=== PATIENT | female | born 1945 | race Caucasian/White ===

== ENCOUNTER → 2017-09-26 | Outpatient (CLI) | payer MEDICARE, OTHER ==
--- NOTE | 2017-09-26 10:14 | CTL ---
EXAMINATION TYPE: CT Low Dose Lung DATE OF EXAM ORDERED: 09/26/2017 COMPARISON: None HISTORY: . Low Dose CT Lung Screening CT DLP: 132.[address] CTDI: 3.6 mGy IV CONTRAST USED: None. SCREENING VISIT: First visit COMPARISON: None. TECHNIQUE: Low dose computed tomography scan was performed through the chest at 1 millimeter thick se ctions and reconstructed images in the coronal plane at [address] DIAGNOSTIC QUALITY: Satisfactory FINDINGS: LUNG NODULES: Right lung: Pleural-based nodule right upper lobe measuring approximately 1.9 x 1.6 x 1.3 cm. Several adjacent groundglass nodular densities are also identified measuring up to 6 mm. No additional right -sided nodules are seen. Left lung: No distinct pulmonary nodule identified. LUNGS: COPD: Severity: Moderate Fibrosis: Severity:None Lymph nodes: 11 mm right lower paratracheal lymph node. Other findings: None RIGHT PLEURAL SPACE: Effusion: None Calcification: None Thickening: None Pneumothorax: None LEFT PLEURAL SPACE: Effusion: None Calcification: None Thickening: None Pneumothorax: None HEART: Heart Size: Moderately enlarged. Coronary calcification: Moderate Pericardial effusion: None OTHER FINDINGS: Upper abdomen: Multiple hypoattenuating masses within the liver are felt to reflect metastatic diseas e. Nonspecific hypoattenuating lesion upper pole left kidney posteriorly measures 1.5 cm. Bony thorax: Degenerative changes Supraclavicular region: No significant abnormalityOther: No significant abnormalityI Findings suggest pulmonary arterial hypertension. IMPRESSION: 1. Suspicious 4A/4B. Consider tissue diagnosis versus PET/CT 2. Multiple hypoattenuating masses within the liver poorly characterized on this study felt to reflec t metastatic disease. FOLLOW UP CT CHEST RECOMMENDATION: Consider tissue diagnosis versus PET/CT. CT abdomen pelvis for further evaluation. CT LUNG RAD: Suspicious 4A/4B. LUNG RAD CATEGORY Suspicious 4A/4B.
== END | disposition home or self-care (01) ==
LOC: RADCTMAIN 09:33
PROVIDERS: ATTEND Family Medicine
DX: Z12.2 Encounter for screening for malignant neoplasm of respiratory organs (principal); Z87.891 Personal history of nicotine dependence

== ENCOUNTER 2017-10-26 08:36 | Day surgery (SDC) | payer MEDICARE, OTHER ==
[~2017-10-26 08:36] MED LIST: ALPRAZolam 0.25 MG TAB PO ONE
[2017-10-26 09:20] VITALS: TEMP 97.9
[2017-10-26 09:25] LABS: Mean Platelet Volume 8.1; Platelet Count 223 k/uL (150-450)
[2017-10-26 09:35] LABS: Partial Thromboplastin Time 24.3 sec (22.0-30.0); Prothrombin Time 9.8 sec (9.0-12.0)
[2017-10-26] MEDS ORDERED: HYDROmorphone 0.5 MG/0.5 ML SYRINGE IVP STA (10:10)
[2017-10-26 14:10] VITALS: BP 114/65; PULSE 88; RESP 18
--- NOTE | 2017-10-26 14:37 | US ---
EXAMINATION TYPE: US biopsy liver DATE OF EXAM: 10/26/2017 HISTORY: Liver mass. FINDINGS: Maximal barrier technique was utilized. The skin overlying a suitable path to the patient' s left lobe liver mass was localized with ultrasound and the overlying skin prepped and draped. Ultr asound was utilized with sterile technique. Lidocaine was used for local anesthesia. A skin loyd wa s made with a scalpel. An 18-gauge needle was advanced under direct ultrasound guidance and core spe cimen obtained of the mass. Specimen submitted in formalin to Pathology. Additional pass was perform ed due to questionable adequacy. Following the procedure, hemostasis achieved and the patient is disc harged in stable condition without complication. IMPRESSION:STATUS POST ULTRASOUND GUIDED CORE BIOPSY OF left lobe liver MASS, PATHOLOGY IS PENDING. THIS PROCEDURE IS PERFORMED BY THE UNDERSIGNED.
== END 2017-10-26 14:17 | disposition home or self-care (01) ==
LOC: RADPROMAIN 08:36
PROVIDERS: ATTEND Internal Medicine Hematology & Oncology
DX: K76.89 Other specified diseases of liver (principal); Z88.0 Allergy status to penicillin
CPT/HCPCS: 85049; 85610; 85730; 88313; 88307; 96374; 47000; 76942; J1170

== ENCOUNTER 2018-01-11 17:41 | Inpatient (IN) | payer MEDICARE, OTHER ==
[2018-01-11] MEDS ORDERED: IBUPROFEN 600 MG TAB PO STA (18:08)
[2018-01-11] MEDS ORDERED: ACETAMINOPHEN TAB 500 MG TAB PO STA (18:08)
[2018-01-11] MEDS ORDERED: ALBUTEROL NEBULIZED 2.5 MG/3 ML INHALATION STA (18:15)
--- NOTE | 2018-01-11 18:16 | ED ---
Fever HPI <Mp Tong - Last Filed: 01/11/18 20:01> - General Source: patient, family, RN notes reviewed, old records reviewed Mode of arrival: wheelchair Limitations: no limitations <Yasmine Hernandez - Last Filed: 01/11/18 22:30> - General Chief Complaint: Fever Stated Complaint: Ca patient, fever Time Seen by Provider: 01/11/18 17:54 - History of Present Illness Initial Comments: This patient is a 72-year-old female with a history of liver cancer and recently treated with a new chemotherapy pill for the past 2 days. She presents today with a fever. She states that she started to have a fever yesterday and went to see her oncologist they gave her a IV fluids and her vital stabilized and sent her home. She returns again today with fever 104. She states that she is currently on oxygen at all times as of yesterday from her oncologist. Patient reports that she is having a difficult time breathing. She states that earlier today she lost control of her bowel or bladder function had some diarrhea. She states that she did have an episode of blood in her diarrhea. Today. Patient states that she is not had any recent Motrin or Tylenol. She states she feels very dehydrated. She states she feels very weak and tired at this time. (Yasmine Hernandez) - Related Data Home Medications Medication Instructions Recorded Confirmed Furosemide [Lasix] 40 mg PO DAILY 05/10/16 01/11/18 L.acidoph,Paracasei, B.lactis 1 cap PO DAILY 05/10/16 01/11/18 [Probiotic] Magnesium Oxide [Magox 400] 400 mg PO DAILY 05/10/16 01/11/18 Potassium Chloride ER [K-Dur 20] 20 meq PO BID 05/10/16 01/11/18 glyBURIDE [Diabeta] 5 mg PO DAILY 05/10/16 01/11/18 rOPINIRole HCL [Requip] 5 mg PO HS 05/10/16 01/11/18 Ezetimibe [Zetia] 10 mg PO DAILY 10/23/17 01/11/18 Glucosamine-Chondr 500-400Mg 1 tab PO DAILY 10/23/17 01/11/18 Ibuprofen/Diphenhydramine HCl 1 cap PO HS 10/23/17 01/11/18 [Advil Pm Liqui-Gels] Insulin Glargine [Lantus] 63 unit SQ DAILY 10/23/17 01/11/18 Docusate [Colace] 100 mg PO DAILY 01/11/18 01/11/18 Insulin Lispro [humaLOG Kwikpen] 12 unit SQ AC-TID PRN 01/11/18 01/11/18 Ondansetron [Zofran ODT] 4 mg PO Q8HR PRN 01/11/18 01/11/18 Prochlorperazine [Compazine] 10 mg PO Q6H PRN 01/11/18 01/11/18 oxyCODONE-APAP 5-325MG [Percocet 1 tab PO Q6HR PRN 01/11/18 01/11/18 5-325 mg] Previous Rx's Medication Instructions Recorded Lisinopril [Zestril] 5 mg PO DAILY #30 tab 05/12/16 Allergies Allergy/AdvReac Type Severity Reaction Status Date / Time Penicillins AdvReac Rash/Hives Verified 01/11/18 18:51 Review of Systems ROS Other: All systems not noted in ROS Statement are negative. <Mp Tong - Last Filed: 01/11/18 20:01> ROS Other: All systems not noted in ROS Statement are negative. <Yasmine Hernandez - Last Filed: 01/11/18 22:30> ROS Statement: Those systems with pertinent positive or pertinent negative responses have been documented in the HPI. Past Medical History Past Medical History: Cancer, Heart Failure, Diabetes Mellitus, Hyperlipidemia, Hypertension Additional Past Medical History / Comment(s): RLS. SUSPECTED OF HAVING LIVER CANCER History of Any Multi-Drug Resistant Organisms: None Reported Past Surgical History: Back Surgery Additional Past Surgical History / Comment(s): COLONOCOPY Past Anesthesia/Blood Transfusion Reactions: No Reported Reaction Past Psychological History: No Psychological Hx Reported Smoking Status: Former smoker Past Alcohol Use History: None Reported Past Drug Use History: None Reported - Past Family History Father Family Medical History: Cancer Mother Family Medical History: Congestive Heart Failure (CHF), COPD Brother(s) Family Medical History: Cancer <Yasmine Hernandez - Last Filed: 01/11/18 22:30> General Exam <Mp Tong - Last Filed: 01/11/18 20:01> Limitations: no limitations General appearance: alert, in no apparent distress Head exam: Present: atraumatic, normocephalic, normal inspection Eye exam: Present: normal appearance, PERRL, EOMI. Absent: scleral icterus, conjunctival injection, periorbital swelling ENT exam: Present: normal exam, mucous membranes moist Neck exam: Present: normal inspection. Absent: tenderness, meningismus, lymphadenopathy Respiratory exam: Present: normal lung sounds bilaterally, wheezes (Wheezing noted. Patient is currently on to 3 L of oxygen.). Absent: respiratory distress, rales, rhonchi, stridor Cardiovascular Exam: Present: normal rhythm, tachycardia, normal heart sounds. Absent: regular rate, systolic murmur, diastolic murmur, rubs, gallop, clicks GI/Abdominal exam: Present: soft, normal bowel sounds. Absent: distended, tenderness, guarding, rebound, rigid Extremities exam: Present: normal inspection, full ROM, normal capillary refill. Absent: tenderness, pedal edema, joint swelling, calf tenderness Back exam: Present: normal inspection Neurological exam: Present: alert, oriented X3, CN II-XII intact Psychiatric exam: Present: normal affect, normal mood Skin exam: Present: warm, dry, intact, normal color. Absent: rash <Yasmine Hernandez - Last Filed: 01/11/18 22:30> - General Exam Comments Initial Comments: This patient is a 72-year-old female. Patient appears very tired and fatigued. (Yasmine Hernandez) Course <Mp Tong - Last Filed: 01/11/18 20:01> <Yasmine Hernandez - Last Filed: 01/11/18 22:30> Vital Signs 01/11/18 01/11/18 01/11/18 17:43 18:36 18:39 Temperature 104.3 F H Pulse Rate 113 H 106 H 112 H Respiratory 20 18 20 Rate Blood Pressure 114/65 150/75 O2 Sat by Pulse 92 L 95 Oximetry 01/11/18 01/11/18 01/11/18 18:44 19:29 20:47 Temperature 102.1 F H 98 F Pulse Rate 108 H 114 H 93 Respiratory 18 22 22 Rate Blood Pressure 131/61 130/67 O2 Sat by Pulse 92 L 94 L Oximetry - Reevaluation(s) Reevaluation #1: 01/11/18 20:01 I did personally do a [id number] evaluation the patient did discuss Pf[employer] her and her family. Admitted for fever she is currently on chemotherapy for liver cancer. The case was discussed with Dr. Bermudez (Mp Tong) Medical Decision Making - Lab Data Result diagrams: 01/11/18 18:17 01/11/18 18:17 <Mp Tong - Last Filed: 01/11/18 20:01> - Lab Data Result diagrams: 01/11/18 18:17 01/11/18 18:17 - Radiology Data Radiology results: report reviewed <Yasmine Hernandez - Last Filed: 01/11/18 22:30> - Medical Decision Making This patient is 32-year-old female with history of liver cancer presents emergency Department with fever primary before. She feels very weak. Patient also history of COPD and scratching multiple times. Patient was started on a new chemotherapeutic pill 2 days ago. We do not know exactly what this pill is at this time. Patient reports that she was feeling ill yesterday, and she went to her oncologist. They did do some lab or give her IV fluids and sent home. At this time patient was placed in a cooling packs, given Motrin Tylenol 2 L of fluid. Lab work was obtained. White count was within normal limits 4.3. Patient has a normal lactic acid. Patient's given a DuoNeb treatment for shortness of breath. Patient's chest x-ray was reviewed and normal. I discussed with Dr. Tong. We will admit the patient. I discussed this with . also he cooling admitted for Dr. Petit patient's PCP. He will I did start the patient on Levaquin. He also wants to start the patient on vancomycin and cefepime as she is a cancer patient with this very high fever. Her urinalysis showed multiple bacteria. This could be her source of infection. Dr. Bermudez would like consult to Dr. Hinton infectious disease, as well as her oncologist Dr. Moran. (Yasmine Hernandez) - Lab Data Lab Results 01/11/18 01/11/18 01/11/18 Range/Units 18:17 18:17 18:17 WBC 4.3 (3.8-10.6) k/uL RBC 4.78 (3.80-5.40) m/uL Hgb 13.3 (11.4-16.0) gm/dL Hct 39.4 (34.0-46.0) % MCV 82.4 (80.0-100.0) fL MCH 27.8 (25.0-35.0) pg MCHC 33.7 (31.0-37.0) g/dL RDW 16.2 H (11.5-15.5) % Plt Count 264 (150-450) k/uL Neutrophils % 70 % Lymphocytes % 12 % Monocytes % 8 % Eosinophils % 5 % Basophils % 1 % Neutrophils # 3.0 (1.3-7.7) k/uL Lymphocytes # 0.5 L (1.0-4.8) k/uL Monocytes # 0.4 (0-1.0) k/uL Eosinophils # 0.2 (0-0.7) k/uL Basophils # 0.1 (0-0.2) k/uL Poikilocytosis Slight Anisocytosis Slight PT (9.0-12.0) sec INR (<1.2) APTT (22.0-30.0) sec Sodium 135 L (137-145) mmol/L Potassium 3.8 (3.5-5.1) mmol/L Chloride 99 (98-107) mmol/L Carbon Dioxide 28 (22-30) mmol/L Anion Gap 8 mmol/L BUN 17 (7-17) mg/dL Creatinine 0.80 (0.52-1.04) mg/dL Est GFR (CKD-EPI)AfAm 85 (>60 ml/min/1.73 sqM) Est GFR (CKD-EPI)NonAf 74 (>60 ml/min/1.73 sqM) Glucose 93 (74-99) mg/dL Plasma Lactic Acid Raf 1.4 (0.7-2.0) mmol/L Calcium 8.5 (8.4-10.2) mg/dL Magnesium 1.9 (1.6-2.3) mg/dL Total Bilirubin 0.6 (0.2-1.3) mg/dL AST 75 H (14-36) U/L ALT 57 H (9-52) U/L Alkaline Phosphatase 290 H (38-126) U/L Troponin I (0.000-0.034) ng/mL Total Protein 7.6 (6.3-8.2) g/dL Albumin 3.5 (3.5-5.0) g/dL Urine Color Urine Appearance (Clear) Urine pH (5.0-8.0) Ur Specific Pep (1.001-1.035) Urine Protein (Negative) Urine Glucose (UA) (Negative) Urine Ketones (Negative) Urine Blood (Negative) Urine Nitrite (Negative) Urine Bilirubin (Negative) Urine Urobilinogen (<2.0) mg/dL Ur Leukocyte Esterase (Negative) Urine RBC (0-5) /hpf Urine WBC (0-5) /hpf Ur Squamous Epith Cells (0-4) /hpf Urine Bacteria (None) /hpf Hyaline Casts (0-2) /lpf Granular Casts (0) /lpf Urine Mucus (None) /hpf Influenza Type A RNA (Not Detectd) Influenza Type B (PCR) (Not Detectd) 01/11/18 01/11/18 01/11/18 Range/Units 18:17 18:17 18:37 WBC (3.8-10.6) k/uL RBC (3.80-5.40) m/uL Hgb (11.4-16.0) gm/dL Hct (34.0-46.0) % MCV (80.0-100.0) fL MCH (25.0-35.0) pg MCHC (31.0-37.0) g/dL RDW (11.5-15.5) % Plt Count (150-450) k/uL Neutrophils % % Lymphocytes % % Monocytes % % Eosinophils % % Basophils % % Neutrophils # (1.3-7.7) k/uL Lymphocytes # (1.0-4.8) k/uL Monocytes # (0-1.0) k/uL Eosinophils # (0-0.7) k/uL Basophils # (0-0.2) k/uL Poikilocytosis Anisocytosis PT 11.1 (9.0-12.0) sec INR 1.2 H (<1.2) APTT 26.0 (22.0-30.0) sec Sodium (137-145) mmol/L Potassium (3.5-5.1) mmol/L Chloride (98-107) mmol/L Carbon Dioxide (22-30) mmol/L Anion Gap mmol/L BUN (7-17) mg/dL Creatinine (0.52-1.04) mg/dL Est GFR (CKD-EPI)AfAm (>60 ml/min/1.73 sqM) Est GFR (CKD-EPI)NonAf (>60 ml/min/1.73 sqM) Glucose (74-99) mg/dL Plasma Lactic Acid Raf (0.7-2.0) mmol/L Calcium (8.4-10.2) mg/dL Magnesium (1.6-2.3) mg/dL Total Bilirubin (0.2-1.3) mg/dL AST (14-36) U/L ALT (9-52) U/L Alkaline Phosphatase (38-126) U/L Troponin I 0.022 (0.000-0.034) ng/mL Total Protein (6.3-8.2) g/dL Albumin (3.5-5.0) g/dL Urine Color Yellow Urine Appearance Cloudy H (Clear) Urine pH 5.5 (5.0-8.0) Ur Specific Pep 1.014 (1.001-1.035) Urine Protein 2+ H (Negative) Urine Glucose (UA) Negative (Negative) Urine Ketones Negative (Negative) Urine Blood Moderate H (Negative) Urine Nitrite Negative (Negative) Urine Bilirubin Negative (Negative) Urine Urobilinogen <2.0 (<2.0) mg/dL Ur Leukocyte Esterase Negative (Negative) Urine RBC 2 (0-5) /hpf Urine WBC 2 (0-5) /hpf Ur Squamous Epith Cells 3 (0-4) /hpf Urine Bacteria Moderate H (None) /hpf Hyaline Casts 9 H (0-2) /lpf Granular Casts 3 (0) /lpf Urine Mucus Rare H (None) /hpf Influenza Type A RNA (Not Detectd) Influenza Type B (PCR) (Not Detectd) 01/11/18 Range/Units 18:45 WBC (3.8-10.6) k/uL RBC (3.80-5.40) m/uL Hgb (11.4-16.0) gm/dL Hct (34.0-46.0) % MCV (80.0-100.0) fL MCH (25.0-35.0) pg MCHC (31.0-37.0) g/dL RDW (11.5-15.5) % Plt Count (150-450) k/uL Neutrophils % % Lymphocytes % % Monocytes % % Eosinophils % % Basophils % % Neutrophils # (1.3-7.7) k/uL Lymphocytes # (1.0-4.8) k/uL Monocytes # (0-1.0) k/uL Eosinophils # (0-0.7) k/uL Basophils # (0-0.2) k/uL Poikilocytosis Anisocytosis PT (9.0-12.0) sec INR (<1.2) APTT (22.0-30.0) sec Sodium (137-145) mmol/L Potassium (3.5-5.1) mmol/L Chloride (98-107) mmol/L Carbon Dioxide (22-30) mmol/L Anion Gap mmol/L BUN (7-17) mg/dL Creatinine (0.52-1.04) mg/dL Est GFR (CKD-EPI)AfAm (>60 ml/min/1.73 sqM) Est GFR (CKD-EPI)NonAf (>60 ml/min/1.73 sqM) Glucose (74-99) mg/dL Plasma Lactic Acid Raf (0.7-2.0) mmol/L Calcium (8.4-10.2) mg/dL Magnesium (1.6-2.3) mg/dL Total Bilirubin (0.2-1.3) mg/dL AST (14-36) U/L ALT (9-52) U/L Alkaline Phosphatase (38-126) U/L Troponin I (0.000-0.034) ng/mL Total Protein (6.3-8.2) g/dL Albumin (3.5-5.0) g/dL Urine Color Urine Appearance (Clear) Urine pH (5.0-8.0) Ur Specific Pep (1.001-1.035) Urine Protein (Negative) Urine Glucose (UA) (Negative) Urine Ketones (Negative) Urine Blood (Negative) Urine Nitrite (Negative) Urine Bilirubin (Negative) Urine Urobilinogen (<2.0) mg/dL Ur Leukocyte Esterase (Negative) Urine RBC (0-5) /hpf Urine WBC (0-5) /hpf Ur Squamous Epith Cells (0-4) /hpf Urine Bacteria (None) /hpf Hyaline Casts (0-2) /lpf Granular Casts (0) /lpf Urine Mucus (None) /hpf Influenza Type A RNA Not Detected (Not Detectd) Influenza Type B (PCR) Not Detected (Not Detectd) 01/11/18 18:20 EKG performed at 1817 shows sinus tachycardia with occasional PVCs. Otherwise a normal EKG. Ventricular rate of 114 bpm. [place] interval 1:30 milliseconds. QRS duration 88 ms. QT QTc is 324/446 ms. No evidence of ST elevation or T- wave inversion. (Yasmine Hernandez) - Radiology Data Chest x-ray shows no abnormalities. (Yasmine Hernandez) Disposition <Mp Tong - Last Filed: 01/11/18 20:01> Time of Disposition: 20:04 <Yasmine Hernandez - Last Filed: 01/11/18 22:30> Clinical Impression: UTI (urinary tract infection), Sepsis, Liver cancer Disposition: ADMITTED IP TO THIS HOSP Condition: Stable
[2018-01-11] MEDS: SODIUM CHLORIDE 0.9% 500 ML IV SCH ×3 (18:26→19:48)
[2018-01-11 18:45] LABS: Anisocytosis Slight; Basophils # (A) 0.1 k/uL (0-0.2); Basophils % (A) 1 %; Eosinophils # (A) 0.2 k/uL (0-0.7); Eosinophils % (A) 5 %; HCT 39.4 % (34.0-46.0); HGB 13.3 gm/dL (11.4-16.0); Lymphocytes # (A) 0.5 k/uL (1.0-4.8); Lymphocytes % (A) 12 %; MCH 27.8 pg (25.0-35.0); MCHC 33.7 g/dL (31.0-37.0); MCV 82.4 fL (80.0-100.0); Mean Platelet Volume 6.7; Monocytes # (A) 0.4 k/uL (0-1.0); Monocytes % (A) 8 %; Neutrophils % (A) 70 %; Platelet Count 264 k/uL (150-450); Poikilocytosis Slight; RBC 4.78 m/uL (3.80-5.40); RDW 16.2 % (11.5-15.5); WBC 4.3 k/uL (3.8-10.6)
[2018-01-11 18:46] LABS: Appearance,Urine Cloudy (Clear); Bacteria,Urine Moderate /hpf; Bilirubin,Urine Negative (Negative); Blood,Urine Moderate (Negative); Color,Urine Yellow; Glucose,Urine (UA) Negative (Negative); Granular Casts,Urine 3 /lpf (0); Hyaline Casts,Urine 9 /lpf (0-2); Ketones,Urine Negative (Negative); Leukocyte Esterase,Urine Negative (Negative); Mucus,Urine Rare /hpf; Nitrite,Urine Negative (Negative); PH, Urine 5.5 (5.0-8.0); Protein,Urine 2+ (Negative); RBC,Urine 2 /hpf (0-5); Specific Gravity,Urine 1.014 (1.001-1.035); Squamous Epithelial Cell,Urine 3 /hpf (0-4); Urobilinogen,Urine <2.0 mg/dL (<2.0); WBC,Urine 2 /hpf (0-5)
[2018-01-11 18:52] LABS: INR 1.2 (<1.2); Prothrombin Time 11.1 sec (9.0-12.0)
[2018-01-11 19:02] LABS: Albumin 3.5 g/dL (3.5-5.0); Calcium 8.5 mg/dL (8.4-10.2); Magnesium 1.9 mg/dL (1.6-2.3); Potassium 3.8 mmol/L (3.5-5.1); Total Bilirubin 0.6 mg/dL (0.2-1.3); Total Protein 7.6 g/dL (6.3-8.2)
--- NOTE | 2018-01-11 19:24 | XR ---
EXAMINATION: XR chest 2V DATE AND TIME: 01/11/2018 6:58 PM ORDERING PROVIDER: Yasmine Hernandez CLINICAL INDICATION: Pain fever and cough TECHNIQUE: PA and lateral COMPARISON: None. DESCRIPTION: The lungs are clear. The pleural spaces are negative. The cardiac silhouette is not enlarged. The mediastinal and pleural silhouettes are unremarkable. The skeletal structures are intact without focal findings. The overlying soft tissues are prominent. IMPRESSION: NO DEFINITE ACUTE PROCESS.
[2018-01-11] MEDS ORDERED: LEVOFLOXACIN 750MG-D5W PMX 750 MG in DEXTROSE/WATER 1 150ML.BAG IVPB STA (19:27)
[2018-01-11] MEDS ORDERED: CEFEPIME 1 GM in SODIUM CHLORIDE 0.9% 50 ML IVPB STA (19:56)
[2018-01-11] MEDS ORDERED: VANCOMYCIN IV PER PHARMACY 1 EACH MISC MISCELLANE PRN (19:56)
[2018-01-11] MEDS ORDERED: ONDANSETRON 4 MG/2 ML VIAL IVP PRN (19:58)
[2018-01-11] MEDS ORDERED: MORPHINE SULFATE 4 MG/ML SYRINGE IV PRN (19:58)
[2018-01-11] MEDS ORDERED: NALOXONE 0.4 MG/ML 1 ML VIAL IV PRN (19:58)
[2018-01-11] MEDS ORDERED: Acetaminophen-Codeine 300-30mg TAB PO PRN (19:58)
[2018-01-11] MEDS ORDERED: PROCHLORPERAZINE 10 MG TAB PO PRN (20:04)
[2018-01-11] MEDS ORDERED: VANCOMYCIN 1,750 MG in SODIUM CHLORIDE 0.9% 250 ML IVPB ONE (21:00)
[2018-01-11] MEDS: POTASSIUM CHLORIDE ER 20 MEQ TAB.ER PO SCH (21:19)
[2018-01-11] MEDS: SODIUM CHLORIDE 0.9% 1,000 ML IV SCH (21:21)
[2018-01-11 21:27] LABS: Glucose,Whole Blood 121 mg/dL (75-99)
[2018-01-11 21:55] LABS: Glucose,Whole Blood 150 mg/dL (75-99)
[2018-01-11 23:22] VITALS: BMI 30.9
[2018-01-11] MEDS: INSULIN DETEMIR 100 UNIT/ML 10 ML VIAL SQ SCH (23:23)
[2018-01-12 06:00] LABS: Glucose,Whole Blood 100 mg/dL (75-99)
[2018-01-12] MEDS: IBUPROFEN 400 MG TAB PO PRN ×2 (06:14→17:44)
[2018-01-12] MEDS: CEFEPIME 2 GM in SODIUM CHLORIDE 0.9% 50 ML IVPB SCH ×6 (06:15→22:47)
[2018-01-12 07:03] LABS: Glucose,Whole Blood 115 mg/dL (75-99)
[2018-01-12] MEDS: FUROSEMIDE 40 MG TAB PO SCH (08:54)
[2018-01-12] MEDS: DOCUSATE 100 MG CAP PO SCH (08:55)
[2018-01-12] MEDS: LISINOPRIL 5 MG TAB PO SCH (08:55)
[2018-01-12] MEDS: glipiZIDE 10 MG TAB PO SCH (08:55)
[2018-01-12] MEDS: EZETIMIBE 10 MG TAB PO SCH (08:55)
[2018-01-12] MEDS: POTASSIUM CHLORIDE ER 20 MEQ TAB.ER PO SCH ×2 (08:55→20:24)
[2018-01-12] MEDS ORDERED: PANTOPRAZOLE 40 MG/10 ML VIAL IV SCH (09:00)
[2018-01-12] MEDS ORDERED: NON-FORMULARY DRUG (Glucosamine-Chondr 500-400mg 1 TAB) PO SCH (09:00)
[2018-01-12] MEDS: SODIUM CHLORIDE 0.9% 1,000 ML IV SCH ×2 (09:03→16:47)
[2018-01-12] MEDS: LACTOBACILLUS ACIDOPH & BULGAR 1 EACH PACKET PO SCH (09:04)
[2018-01-12 11:11] LABS: Glucose,Whole Blood 146 mg/dL (75-99)
[2018-01-12] MEDS ORDERED: VANCOMYCIN 1,500 MG in SODIUM CHLORIDE 0.9% 250 ML IVPB SCH (12:00)
[2018-01-12] MEDS: VANCOMYCIN 1,500 MG in SODIUM CHLORIDE 0.9% 250 ML IVPB SCH (13:05)
[2018-01-12] MEDS: MAGNESIUM OXIDE 400 MG TAB PO SCH (13:07)
[2018-01-12] MEDS ORDERED: IOHEXOL 350 MG/ML 25 ML BOTTLE (ORAL USE) PO PRN (13:22)
[2018-01-12] MEDS ORDERED: RX INFO: IV CONTRAST WAS GIVEN 1 EACH MISC MISCELLANE PRN (13:22)
[2018-01-12] MEDS ORDERED: MORPHINE SULFATE 4 MG/ML SYRINGE IV PRN (14:25)
--- NOTE | 2018-01-12 14:28 | P.HPIM ---
History of Present Illness H&P Date: 01/12/18 This is a 72-year-old female with past medical history noted below significant for metastatic liver cancer who was recently started on Nexavar by her oncologist. Patient said that she has not been feeling well for the past couple of days. She was having low-grade fever at home. She was evaluated by her oncologist in the office and was given some IV fluid and was instructed to go to the emergency room if her fever persists. Patient said that she had a fever of 102.0 at home. She was having chills as well. She denies any flulike symptoms. No cough or shortness of breath. She reported having some burning with her urine but no significant increase in urinary frequency. No abdominal pain. She is also complaining of diarrhea with loose stool up to 4 times per day. She was evaluated in the emergency room and was found to be in severe sepsis without septic shock. She is currently admitted to the hospital for further evaluation. She is feeling a lot better this morning. Review of Systems Review of system: 14 points review of systems were obtained and were negative except to what were mentioned in the HPI. Past Medical History Past Medical History: Cancer, Heart Failure, Diabetes Mellitus, Hyperlipidemia, Hypertension Additional Past Medical History / Comment(s): RLS. SUSPECTED OF HAVING LIVER CANCER. Pt was unable to verfiy all of her History History of Any Multi-Drug Resistant Organisms: None Reported Past Surgical History: Back Surgery Additional Past Surgical History / Comment(s): COLONOCOPY Past Anesthesia/Blood Transfusion Reactions: No Reported Reaction Past Psychological History: No Psychological Hx Reported Smoking Status: Former smoker Past Alcohol Use History: None Reported Additional Past Alcohol Use History / Comment(s): QUIT SMOKING 2011 Past Drug Use History: None Reported - Past Family History Father Family Medical History: Cancer Mother Family Medical History: Congestive Heart Failure (CHF), COPD Brother(s) Family Medical History: Cancer Medications and Allergies Home Medications Medication Instructions Recorded Confirmed Type Furosemide [Lasix] 40 mg PO DAILY 05/10/16 01/11/18 History L.acidoph,Paracasei, B.lactis 1 cap PO DAILY 05/10/16 01/11/18 History [Probiotic] Magnesium Oxide [Magox 400] 400 mg PO DAILY 05/10/16 01/11/18 History Potassium Chloride ER [K-Dur 20] 20 meq PO BID 05/10/16 01/11/18 History glyBURIDE [Diabeta] 5 mg PO DAILY 05/10/16 01/11/18 History rOPINIRole HCL [Requip] 5 mg PO HS 05/10/16 01/11/18 History Lisinopril [Zestril] 5 mg PO DAILY #30 tab 05/12/16 01/11/18 Rx Ezetimibe [Zetia] 10 mg PO DAILY 10/23/17 01/11/18 History Glucosamine-Chondr 500-400Mg 1 tab PO DAILY 10/23/17 01/11/18 History Ibuprofen/Diphenhydramine HCl 1 cap PO HS 10/23/17 01/11/18 History [Advil Pm Liqui-Gels] Insulin Glargine [Lantus] 63 unit SQ DAILY 10/23/17 01/11/18 History Docusate [Colace] 100 mg PO DAILY 01/11/18 01/11/18 History Insulin Lispro [humaLOG Kwikpen] 12 unit SQ AC-TID PRN 01/11/18 01/11/18 History Ondansetron [Zofran ODT] 4 mg PO Q8HR PRN 01/11/18 01/11/18 History Prochlorperazine [Compazine] 10 mg PO Q6H PRN 01/11/18 01/11/18 History oxyCODONE-APAP 5-325MG [Percocet 1 tab PO Q6HR PRN 01/11/18 01/11/18 History 5-325 mg] Allergies Allergy/AdvReac Type Severity Reaction Status Date / Time Penicillins AdvReac Rash/Hives Verified 01/11/18 18:51 Physical Exam Vitals: Vital Signs Temp Pulse Pulse Resp BP BP Pulse Ox 01/12/18 12:42 99.2 F 01/12/18 08:00 112 H 18 01/12/18 07:00 100.3 F H 112 H 18 144/72 97 01/11/18 22:09 98.0 F 68 18 117/73 96 01/11/18 20:47 98 F 93 22 130/67 94 L 01/11/18 19:29 102.1 F H 114 H 22 131/61 92 L 01/11/18 18:44 108 H 18 01/11/18 18:39 112 H 20 150/75 95 01/11/18 18:36 106 H 18 01/11/18 17:43 104.3 F H 113 H 20 114/65 92 L Intake and Output 01/11/18 01/12/18 01/12/18 22:59 06:59 14:59 Other: Voiding Method Toilet Toilet # Voids 2 Weight 87.09 kg 87.09 kg General: The patient is awake and alert, in no distress Eye: there is normal conjunctiva bilaterally. Neck: The neck is supple, there is no JVD. Cardiovascular: Normal S1-S2, no S3-S4, no murmurs. Respiratory: Lungs clear to auscultation bilaterally Gastrointestinal: Abdomen is soft, nontender. Slightly distended Musculoskeletal: There is no pedal edema. Neurological:. Speech is normal. Skin: Skin is warm and dry Results CBC & Chem 7: 01/11/18 18:17 01/11/18 18:17 Labs: Abnormal Lab Results - Last 24 Hours (Table) 01/11/18 01/11/18 01/11/18 Range/Units 18:17 18:17 18:17 RDW 16.2 H (11.5-15.5) % Lymphocytes # 0.5 L (1.0-4.8) k/uL INR 1.2 H (<1.2) Sodium 135 L (137-145) mmol/L POC Glucose (mg/dL) (75-99) mg/dL AST 75 H (14-36) U/L ALT 57 H (9-52) U/L Alkaline Phosphatase 290 H (38-126) U/L Urine Appearance (Clear) Urine Protein (Negative) Urine Blood (Negative) Urine Bacteria (None) /hpf Hyaline Casts (0-2) /lpf Urine Mucus (None) /hpf 01/11/18 01/11/18 01/11/18 Range/Units 18:37 21:22 21:53 RDW (11.5-15.5) % Lymphocytes # (1.0-4.8) k/uL INR (<1.2) Sodium (137-145) mmol/L POC Glucose (mg/dL) 121 H 150 H (75-99) mg/dL AST (14-36) U/L ALT (9-52) U/L Alkaline Phosphatase (38-126) U/L Urine Appearance Cloudy H (Clear) Urine Protein 2+ H (Negative) Urine Blood Moderate H (Negative) Urine Bacteria Moderate H (None) /hpf Hyaline Casts 9 H (0-2) /lpf Urine Mucus Rare H (None) /hpf 01/12/18 01/12/18 01/12/18 Range/Units 05:57 06:53 11:09 RDW (11.5-15.5) % Lymphocytes # (1.0-4.8) k/uL INR (<1.2) Sodium (137-145) mmol/L POC Glucose (mg/dL) 100 H 115 H 146 H (75-99) mg/dL AST (14-36) U/L ALT (9-52) U/L Alkaline Phosphatase (38-126) U/L Urine Appearance (Clear) Urine Protein (Negative) Urine Blood (Negative) Urine Bacteria (None) /hpf Hyaline Casts (0-2) /lpf Urine Mucus (None) /hpf Microbiology - Last 24 Hours (Table) 01/11/18 18:37 Urine Culture - Preliminary Urine,Voided Thrombosis Risk Factor Assmnt - Choose All That Apply Any of the Below Risk Factors Present?: Yes Each Factor Represents 1 point: Obesity (BMI >25) Other Risk Factors: Yes Each Risk Factor Represents 2 Points: Age 61-74 years, Malignancy Other congenital or acquired thrombophilia - If yes, enter type in comment: No Thrombosis Risk Factor Assessment Total Risk Factor Score: 5 Thrombosis Risk Factor Assessment Level: High Risk Assessment and Plan Assessment: 1. Severe sepsis without septic shock: Possibly attributed to underlying UTI. Will need to rule out C. diff given diarrhea. Computed tomography scan of the abdomen and pelvis ordered to rule out any intra-abdominal source. Patient is currently on broad-spectrum antibiotic with vancomycin and cefepime. Infectious disease consulted. We will continue supportive care. She was resuscitated with IV fluids. 2. Uncomplicated urinary tract infection awaiting blood and urine culture 3. Metastatic liver cancer on Nexavar. Oncology consulted 4. Essential hypertension: Blood pressure well-controlled 5. Type 2 diabetes mellitus we will continue current insulin regimen plus sliding scale 6. DVT prophylaxis with subcu heparin Today, I reviewed her medication list and lab work results. Continue current regimen. Appreciate technical healthcare consultant's recommendations. Repeat lab work in the morning.
--- NOTE | 2018-01-12 17:05 | CONS ---
CONSULTATION DATE OF SERVICE: 01/12/2018. REASON FOR CONSULTATION: Fever. HISTORY OF PRESENT ILLNESS: The patient is a 72-year-old female with past medical history significant for metastatic liver cancer recently has been started on new chemotherapy by her oncologist by the name of Nexavar, which the patient has taken for about 10 days. The patient says since she has been started on this new chemotherapy she has not been feeling well. Her symptom has been just generalized weakness, no energy and her legs giving out and not feeling well. The patient did have a followup with her oncologist on . Recently started this medication. Apparently the patient did have a low-grade fever at that time, which has been treated with IV fluid with some symptomatic treatment and then discharged home. However, the patient is now coming to the [facility] ER in the evening yesterday with the chief complaints of a fever, generalized weakness. The patient did have a fever of 104 degree Fahrenheit. She was noticed to be tachycardic with a heart rate reaching 112, high blood pressure has been stable though, slight tachypnea with breathing at 20 breaths per minute. Her white count was normal. Urine was cloudy, but no leukocyte esterase or WBC. Influenza serology was negative. The patient did have a chest x-ray that was reported negative for acute process. She was started on broad-spectrum antibiotic in form of cefepime as well as vancomycin. Infectious Disease was consulted for further recommendation regarding antibiotic therapy. The patient did have a low-grade fever this morning of 100.3. She is complaining of some pain in the right upper quadrant area, more of a dull aching pain for the same duration about 3-4 out of 10 and no radiation. [place] nausea, but no vomiting and did not have any diarrhea. REVIEW OF SYSTEMS: CONSTITUTIONAL: Positive for weakness along with the fever. EYES: No complaint. ENT: No complaint. RESPIRATORY: No complaint. CARDIOVASCULAR: No complaint. GENITOURINARY: As per HPI. GASTROINTESTINAL: As per HPI. MUSCULOSKELETAL: No complaint. INTEGUMENTARY: No complaint. PSYCHOLOGICAL: No complaint. ENDOCRINE: No complaint. NEUROLOGIC: No complaint. PAST MEDICAL HISTORY: Significant for hypertension, hyperlipidemia, diabetes mellitus, heart failure, and metastatic liver cancer. PAST SURGICAL HISTORY: Colonoscopy and back surgery. SOCIAL HISTORY: Quit smoking back in 2011. No drinking or any drug use. FAMILY HISTORY: Mother with history of congestive heart failure and COPD. ALLERGIES: PENICILLIN with a rash. No history of anaphylaxis, tolerated cefepime without any problem. MEDICATION: The patient is currently on Tylenol, cefepime, Colace, Zetia, Lasix, Glucotrol, heparin, Motrin, Levemir, Lactinex, Zestril, morphine sulfate, Zofran, Percocet Protonix, K-Dur, Compazine, Requip and vancomycin pharmacy to dose. EXAMINATION: Her blood pressure is 144/72 with a pulse of 112, temperature a 100.8, T-max 104, she is 97% on 3 L nasal cannula. General description is elderly female, lying in bed in no distress. No tachypnea or accessory muscle of respiration use. HEENT: Shows no pallor or scleral icterus. Oral mucous membranes dry. No significant erythema or thrush. NECK: Trachea central. No thyromegaly. LUNGS: Unlabored breathing. Clear to auscultation anteriorly. No wheeze or crackle. HEART: S1, S2. Regular rate and rhythm. No added sounds. ABDOMEN: Soft. She has very minimal tenderness right upper quadrant area. No guarding. No rigidity. No organomegaly. EXTREMITIES: No edema of the feet. SKIN EXAMINATION: No rash or mass palpable. NEUROLOGICAL: Patient is awake, alert, oriented x3. Mood and affect normal. LABS: Hemoglobin is 13.1, white count 4.3, BUN of 17, creatinine 0.80. Endocrine has been normal. Liver enzymes are slightly elevated. Urine was cloudy but leukocyte esterase and nitrate negative. Influenza serology has been negative. The patient did have a chest x-ray report negative for any pneumonia. DIAGNOSTIC IMPRESSION AND PLAN: Patient presented to the hospital with generalized weakness, no energy, legs giving out along with the fever in a patient who did have features of sepsis. The patient did have a fever of 104 degrees Fahrenheit. The patient was tachycardic, tachypneic, meeting criteria for SIRS. Source could be more likely intraabdominal as the patient other workup has been negative. She has no respiratory symptoms. Chest x-ray was reported negative for any pneumonia. She did have some mild burning of the urine, though the urine was cloudy, but no significant leukocyte esterase or nitrate or WBC. She was noted to have mild tenderness right upper quadrant area. The patient did have a history of a liver cancer, question of possible cholangitis not need to be ruled out, likely from enteric gram-negative pathogen and less likely gram-positive but not entirely excluded. The patient has no evidence of any cellulitis or any joint swelling. PLAN: 1. We will obtain a CT abdominal pelvis with contrast to rule out any intraabdominal pathology. 2. The patient will be continued on cefepime 2 g. Dose should be adjusted to 2 g q.12 hours as the patient is not neutropenic. 3. Vancomycin pharmacy to dose, target of 15. Watching her kidney function very closely to provide any associated with vancomycin. 4. We will follow up on the clinical condition as well as cultures to further adjust medication if needed. Thank you for this consultation. Will follow this patient along with you. MMSEDAL / SPARKLEN: [id number] /
[2018-01-12 18:00] LABS: Glucose,Whole Blood 112 mg/dL (75-99)
--- NOTE | 2018-01-12 18:02 | CT ---
EXAMINATION TYPE: CT abdomen pelvis w con DATE OF EXAM: 01/12/2018 COMPARISON: May 10, 2016 HISTORY: Fever and generalized pain. Known liver cancer CT DLP: 1555.9 mGycm Automated exposure control for dose reduction was used. TECHNIQUE: Helical acquisition of images was performed from the lung bases through the pelvis. CONTRAST: Performed with Oral Contrast and with IV Contrast, patient injected with 100 mL of Omnipaque 300. FINDINGS: Lung bases are clear. No pleural or pericardial effusion is identified. The liver demonstrates multiple metastasis. There is also several foci of air within the anterior rig ht hepatic lobe. Hepatic abscess is suspected. This abscess is difficult to precisely measure but maricruz sures approximately 6 x 3 x 6 cm. There is a dominant mass arising from the anterior right hepatic lo be measuring 14 x 6 x 20 cm. Gallbladder demonstrates some thickening. This could be related to neopl asm. The spleen, pancreas, adrenal glands, and kidneys are unremarkable. There is no hydronephrosis. Numerous diverticula are identified throughout the colon. No evidence of diverticulitis is seen. Urin abraham bladder is unremarkable. No free intraperitoneal air or free fluid is identified. There is numerous retroperitoneal lymph nodes identified at the level of the kidneys. These are proba adenike metastases. Largest of which measures only 1.3 cm. The aorta is not dilated. No osteolytic or osteoblastic lesions are seen. IMPRESSION: Multiple metastases are again noted in the liver. There are several foci of air within a hypodense le ervin within the anterior right hepatic lobe. This could be related to necrosis within tumor or hepati c abscess.
[2018-01-12 20:04] LABS: Glucose,Whole Blood 175 mg/dL (75-99)
--- NOTE | 2018-01-12 20:23 | P.CONS ---
History of Present Illness - Reason for Consult Consult date: 01/12/18 HCC Requesting physician: Abdoulaye Bermudez - Chief Complaint Fever - History of Present Illness Ms. Auguste is a very pleasant 72 yo female with HCC, recently started on Nexavar , here for fever of 104 after starting Nexavar. She was referred to Dr. Moran for further evaluation of liver lesions seen on CT AP in April 2016. She was having nausea and vomiting and was evaluated in April 2016 for hematochezia. Computed tomography scan in April 2016 showed small liver lesions. Colonoscopy was negative. She then had some weight loss. PET scan done in 09/2017 showed moderate uptake in liver lesions consistent with metastatic disease. She then had liver lesion biopsy complicated by severe arterial bleeding, requiring surgical intervention. Pathology did come back as HCC. This was discussed with her in late November 2017. She was not a candidate for surgery or chemo embolization, and Nexavar was recommended. She was started on Nexavar about 3 days ago. She did present to clinic on January 10 for fevers and chills with low-grade fevers at that time, that improved with hydration. He was advised to continue Nexavar and take a seven-day course of Levaquin for possible infection. Her fevers increased hence she presented to the ER. Workup in the ER including a chest x-ray was negative. CT of the abdomen pelvis with suspicious findings of hepatic abscess. She is currently on appropriate antibiotics. Review of Systems All systems: negative Constitutional: Reports as per HPI Past Medical History Past Medical History: Cancer, Heart Failure, Diabetes Mellitus, Hyperlipidemia, Hypertension Additional Past Medical History / Comment(s): RLS. SUSPECTED OF HAVING LIVER CANCER. Pt was unable to verfiy all of her History History of Any Multi-Drug Resistant Organisms: None Reported Past Surgical History: Back Surgery Additional Past Surgical History / Comment(s): COLONOCOPY Past Anesthesia/Blood Transfusion Reactions: No Reported Reaction Past Psychological History: No Psychological Hx Reported Smoking Status: Former smoker Past Alcohol Use History: None Reported Additional Past Alcohol Use History / Comment(s): QUIT SMOKING 2011 Past Drug Use History: None Reported - Past Family History Father Family Medical History: Cancer Mother Family Medical History: Congestive Heart Failure (CHF), COPD Brother(s) Family Medical History: Cancer Medications and Allergies Home Medications Medication Instructions Recorded Confirmed Type Furosemide [Lasix] 40 mg PO DAILY 05/10/16 01/11/18 History L.acidoph,Paracasei, B.lactis 1 cap PO DAILY 05/10/16 01/11/18 History [Probiotic] Magnesium Oxide [Magox 400] 400 mg PO DAILY 05/10/16 01/11/18 History Potassium Chloride ER [K-Dur 20] 20 meq PO BID 05/10/16 01/11/18 History glyBURIDE [Diabeta] 5 mg PO DAILY 05/10/16 01/11/18 History rOPINIRole HCL [Requip] 5 mg PO HS 05/10/16 01/11/18 History Lisinopril [Zestril] 5 mg PO DAILY #30 tab 05/12/16 01/11/18 Rx Ezetimibe [Zetia] 10 mg PO DAILY 10/23/17 01/11/18 History Glucosamine-Chondr 500-400Mg 1 tab PO DAILY 10/23/17 01/11/18 History Ibuprofen/Diphenhydramine HCl 1 cap PO HS 10/23/17 01/11/18 History [Advil Pm Liqui-Gels] Insulin Glargine [Lantus] 63 unit SQ DAILY 10/23/17 01/11/18 History Docusate [Colace] 100 mg PO DAILY 01/11/18 01/11/18 History Insulin Lispro [humaLOG Kwikpen] 12 unit SQ AC-TID PRN 01/11/18 01/11/18 History Ondansetron [Zofran ODT] 4 mg PO Q8HR PRN 01/11/18 01/11/18 History Prochlorperazine [Compazine] 10 mg PO Q6H PRN 01/11/18 01/11/18 History oxyCODONE-APAP 5-325MG [Percocet 1 tab PO Q6HR PRN 01/11/18 01/11/18 History 5-325 mg] Allergies Allergy/AdvReac Type Severity Reaction Status Date / Time Penicillins AdvReac Rash/Hives Verified 01/11/18 18:51 Physical Exam Vitals: Vital Signs Temp Pulse Pulse Resp BP BP Pulse Ox 01/12/18 16:49 99.6 F 01/12/18 15:44 88 16 01/12/18 15:00 98.4 F 88 16 143/74 99 01/12/18 12:42 99.2 F 01/12/18 08:00 112 H 18 01/12/18 07:00 100.3 F H 112 H 18 144/72 97 01/11/18 22:09 98.0 F 68 18 117/73 96 01/11/18 20:47 98 F 93 22 130/67 94 L 01/11/18 19:29 102.1 F H 114 H 22 131/61 92 L 01/11/18 18:44 108 H 18 01/11/18 18:39 112 H 20 150/75 95 01/11/18 18:36 106 H 18 Intake and Output 01/12/18 01/12/18 01/12/18 06:59 14:59 22:59 Other: Voiding Method Toilet Toilet Toilet # Voids 2 3 3 Weight 87.09 kg 87.09 kg Gen.: No acute distress HEENT: EOMI. No conjunctival pallor. Mucosa moist. Neck supple. Lymph: No cervical lymphadenopathy. Lungs: Clear to auscultation bilaterally. Heart: Regular rate and rhythm. Abdomen: Soft, nontender, nondistended, with positive bowel sounds. MSK: 4/4 strength in all 4 extremities. Neuro: Alert and oriented 3. Psych: Appropriate affect. Skin: No jaundice. Results CBC & Chem 7: 01/11/18 18:17 01/11/18 18:17 Labs: Abnormal Lab Results - Last 24 Hours (Table) 01/11/18 01/11/18 01/11/18 Range/Units 18:17 18:17 18:17 RDW 16.2 H (11.5-15.5) % Lymphocytes # 0.5 L (1.0-4.8) k/uL INR 1.2 H (<1.2) Sodium 135 L (137-145) mmol/L POC Glucose (mg/dL) (75-99) mg/dL AST 75 H (14-36) U/L ALT 57 H (9-52) U/L Alkaline Phosphatase 290 H (38-126) U/L Urine Appearance (Clear) Urine Protein (Negative) Urine Blood (Negative) Urine Bacteria (None) /hpf Hyaline Casts (0-2) /lpf Urine Mucus (None) /hpf 01/11/18 01/11/18 01/11/18 Range/Units 18:37 21:22 21:53 RDW (11.5-15.5) % Lymphocytes # (1.0-4.8) k/uL INR (<1.2) Sodium (137-145) mmol/L POC Glucose (mg/dL) 121 H 150 H (75-99) mg/dL AST (14-36) U/L ALT (9-52) U/L Alkaline Phosphatase (38-126) U/L Urine Appearance Cloudy H (Clear) Urine Protein 2+ H (Negative) Urine Blood Moderate H (Negative) Urine Bacteria Moderate H (None) /hpf Hyaline Casts 9 H (0-2) /lpf Urine Mucus Rare H (None) /hpf 01/12/18 01/12/18 01/12/18 Range/Units 05:57 06:53 11:09 RDW (11.5-15.5) % Lymphocytes # (1.0-4.8) k/uL INR (<1.2) Sodium (137-145) mmol/L POC Glucose (mg/dL) 100 H 115 H 146 H (75-99) mg/dL AST (14-36) U/L ALT (9-52) U/L Alkaline Phosphatase (38-126) U/L Urine Appearance (Clear) Urine Protein (Negative) Urine Blood (Negative) Urine Bacteria (None) /hpf Hyaline Casts (0-2) /lpf Urine Mucus (None) /hpf 01/12/18 Range/Units 17:57 RDW (11.5-15.5) % Lymphocytes # (1.0-4.8) k/uL INR (<1.2) Sodium (137-145) mmol/L POC Glucose (mg/dL) 112 H (75-99) mg/dL AST (14-36) U/L ALT (9-52) U/L Alkaline Phosphatase (38-126) U/L Urine Appearance (Clear) Urine Protein (Negative) Urine Blood (Negative) Urine Bacteria (None) /hpf Hyaline Casts (0-2) /lpf Urine Mucus (None) /hpf Microbiology - Last 24 Hours (Table) 01/11/18 18:37 Urine Culture - Preliminary Urine,Voided Chest x-ray: report reviewed CT scan - abdomen: report reviewed CT scan - pelvis: report reviewed Assessment and Plan Assessment: 1. HCC 2. Fever 3. Severe sepsis Plan: Ms. Auguste is a pleasant 72 yo female with history of HCC, recently started on Nexavar for 2 days, who is here now with fever, up to 104. Likely fevers due to severe sepsis although cannot rule out tumor fever from her HCC. It is unlikely however for tumor fever to cause a fever as high as [address] AP with air in liver lesions and concerns of possible abscess? For now, would hold nexavar and complete investigation and therapy for severe sepsis. Will continue to follow pt with you to determine when chemo should be resumed. Of note, she is reluctant to restart nexavar. Discussed this with her and advised that if she is concerned about side effects, we could consider starting her on lower dose, ie 200mg bid, and slowly titrate up to goal of 400mg bid. She agrees to think about this. Will discuss this further with Dr. Moran. Discussed case with pt and she's agreeable. All questions answered.
[2018-01-12] MEDS: HEPARIN SODIUM,PORCINE 5,000 UNIT/ML 1 ML VIAL SQ SCH (20:24)
[2018-01-12] MEDS: INSULIN DETEMIR 100 UNIT/ML 10 ML VIAL SQ SCH (22:44)
[2018-01-13] MEDS: VANCOMYCIN 1,500 MG in SODIUM CHLORIDE 0.9% 250 ML IVPB SCH ×2 (04:35→22:24)
[2018-01-13 07:21] LABS: Anisocytosis Slight; Basophils % (A) 0 %; Eosinophils # (A) 0.4 k/uL (0-0.7); Eosinophils % (A) 9 %; HCT 34.9 % (34.0-46.0); HGB 11.7 gm/dL (11.4-16.0); Hypochromasia Slight; Lymphocytes # (A) 0.5 k/uL (1.0-4.8); Lymphocytes % (A) 10 %; MCHC 33.4 g/dL (31.0-37.0); MCV 83.7 fL (80.0-100.0); Mean Platelet Volume 7.1; Monocytes # (A) 0.2 k/uL (0-1.0); Monocytes % (A) 4 %; Neutrophils # (A) 3.5 k/uL (1.3-7.7); Neutrophils % (A) 75 %; Platelet Count 191 k/uL (150-450); Poikilocytosis Slight; RBC 4.17 m/uL (3.80-5.40); RDW 16.1 % (11.5-15.5); WBC 4.7 k/uL (3.8-10.6)
[2018-01-13 07:33] LABS: ALT 53 U/L (9-52); AST 51 U/L (14-36); Albumin 2.8 g/dL (3.5-5.0); Alkaline Phosphatase 230 U/L (38-126); Anion Gap 7 mmol/L; Blood Urea Nitrogen 10 mg/dL (7-17); Carbon Dioxide 24 mmol/L (22-30); Chloride 104 mmol/L (98-107); Glucose 110 mg/dL (74-99); Potassium 3.5 mmol/L (3.5-5.1); Sodium 135 mmol/L (137-145); Total Bilirubin 0.5 mg/dL (0.2-1.3); Total Protein 6.3 g/dL (6.3-8.2)
[2018-01-13 08:10] LABS: Glucose,Whole Blood 98 mg/dL (75-99)
[2018-01-13] MEDS: CEFEPIME 2 GM in SODIUM CHLORIDE 0.9% 50 ML IVPB SCH ×2 (09:44→21:31)
[2018-01-13] MEDS: DOCUSATE 100 MG CAP PO SCH (09:52)
[2018-01-13] MEDS: LISINOPRIL 5 MG TAB PO SCH (09:54)
[2018-01-13] MEDS: EZETIMIBE 10 MG TAB PO SCH (09:54)
[2018-01-13] MEDS: glipiZIDE 10 MG TAB PO SCH (09:54)
[2018-01-13] MEDS: MAGNESIUM OXIDE 400 MG TAB PO SCH (09:54)
[2018-01-13] MEDS: LACTOBACILLUS ACIDOPH & BULGAR 1 EACH PACKET PO SCH (09:54)
[2018-01-13] MEDS: FUROSEMIDE 40 MG TAB PO SCH (09:54)
[2018-01-13] MEDS: POTASSIUM CHLORIDE ER 20 MEQ TAB.ER PO SCH ×2 (09:54→21:44)
[2018-01-13] MEDS: PANTOPRAZOLE 40 MG TABLET PO SCH (09:55)
[2018-01-13] MEDS: HEPARIN SODIUM,PORCINE 5,000 UNIT/ML 1 ML VIAL SQ SCH ×2 (09:55→21:44)
[2018-01-13 11:46] LABS: Glucose,Whole Blood 80 mg/dL (75-99)
--- NOTE | 2018-01-13 15:04 | P.PN ---
Subjective Patient is doing slightly better today. No fever since yesterday. Objective - Vital Signs Vital signs: Vital Signs Temp 99.4 F 01/13/18 07:00 Pulse 98 01/13/18 08:00 Resp 16 01/13/18 08:00 BP 117/71 01/13/18 07:00 Pulse Ox 96 01/13/18 07:00 Intake & Output 01/12/18 01/13/18 01/13/18 18:59 06:59 18:59 Weight 87.09 kg Other: Voiding Method Toilet Toilet Toilet # Voids 3 2 3 - Exam General: The patient is awake and alert, in no distress Eye: there is normal conjunctiva bilaterally. Neck: The neck is supple, there is no JVD. Cardiovascular: Normal S1-S2, no S3-S4, no murmurs. Respiratory: Lungs clear to auscultation bilaterally Gastrointestinal: Abdomen is soft, there is moderate tenderness to palpation worse in the right upper quadrant Musculoskeletal: There is no pedal edema. Neurological:. Speech is normal. Skin: Skin is warm and dry - Labs CBC & Chem 7: 01/13/18 06:54 01/13/18 06:54 Labs: Abnormal Lab Results - Last 24 Hours (Table) 01/12/18 01/12/18 01/13/18 Range/Units 17:57 20:03 06:54 RDW 16.1 H (11.5-15.5) % Lymphocytes # 0.5 L (1.0-4.8) k/uL Sodium (137-145) mmol/L Glucose (74-99) mg/dL POC Glucose (mg/dL) 112 H 175 H (75-99) mg/dL Calcium (8.4-10.2) mg/dL AST (14-36) U/L ALT (9-52) U/L Alkaline Phosphatase (38-126) U/L Albumin (3.5-5.0) g/dL 01/13/18 Range/Units 06:54 RDW (11.5-15.5) % Lymphocytes # (1.0-4.8) k/uL Sodium 135 L (137-145) mmol/L Glucose 110 H (74-99) mg/dL POC Glucose (mg/dL) (75-99) mg/dL Calcium 8.0 L (8.4-10.2) mg/dL AST 51 H (14-36) U/L ALT 53 H (9-52) U/L Alkaline Phosphatase 230 H (38-126) U/L Albumin 2.8 L (3.5-5.0) g/dL Microbiology - Last 24 Hours (Table) 01/11/18 18:07 Blood Culture - Preliminary Blood No Growth after 24 hours Assessment and Plan Assessment: 1. Severe sepsis without septic shock: Source could be intra-abdominal with findings on computed tomography scan of the abdomen suggestive for possible tumor necrosis or hepatic abscess involving some of the liver lesions. I will consult general surgery and IR for possible CT-guided aspiration for cultures. Patient is currently on broad-spectrum antibiotic with vancomycin and cefepime. Infectious disease consulted. We will continue supportive care. She was resuscitated with IV fluids. C. diff and influenza screen was negative 2. Uncomplicated urinary tract infection awaiting blood and urine culture 3. Metastatic liver cancer recently started on Nexavar at home. Seen and evaluated by oncology. Appreciate recommendations. Plan is to wean her off Nexavar. 4. Essential hypertension: Blood pressure well-controlled 5. Type 2 diabetes mellitus we will continue current insulin regimen plus sliding scale 6. DVT prophylaxis with subcu heparin Today, I reviewed her medication list and lab work results. Continue current regimen. Appreciate bridal stylist sales consultant's recommendations. Repeat lab work in the morning.
[2018-01-13] MEDS: SODIUM CHLORIDE 0.9% 1,000 ML IV SCH (17:13)
[2018-01-13] MEDS: IBUPROFEN 400 MG TAB PO PRN (17:16)
[2018-01-13] MEDS: INSULIN ASPART 100 UNIT/ML 1 ML 10 ML VIAL SQ SCH ×2 (17:19→21:44)
[2018-01-13 17:21] LABS: Glucose,Whole Blood 138 mg/dL (75-99)
[2018-01-13 20:20] LABS: Glucose,Whole Blood 139 mg/dL (75-99)
[2018-01-13] MEDS: INSULIN DETEMIR 100 UNIT/ML 10 ML VIAL SQ SCH (21:42)
--- NOTE | 2018-01-13 22:45 | PN ---
PROGRESS NOTE DATE OF SERVICE: 01/13/2018. REASON FOR FOLLOWUP: Fever and possible liver abscess. INTERVAL HISTORY: The patient's overall fever pattern has improved. The highest temperature has been 99.4 this morning. She is breathing comfortably. Denies having any chest pain. Occasional cough. Abdominal pain is currently improved. No nausea, vomiting, or any diarrhea. EXAMINATION: Blood pressure 146/69, pulse of 98, temperature 98.2. She is 92% 3 L nasal cannula. General description is an elderly female up in the chair in no distress. RESPIRATORY SYSTEM: Unlabored breathing with decreased breath sounds in the bases. No wheeze. HEART: S1, S2. Regular rate and rhythm. ABDOMEN: Soft, mildly distended. No guarding or rigidity. LABS: Hemoglobin is 11.7, white count 4.7, BUN of 10, creatinine 0.65. CT suspicious for possible liver abscess. DIAGNOSTIC IMPRESSION AND PLAN: Patient admitted to the hospital with a fever. The patient did have multiple mets to the liver with question of possible abscess. Recommend ultrasound-guided drainage of this fluid collection and should be sent for culture. Keep the patient on cefepime at this point adjusting it further on basis of the culture and clinical response. Continue supportive care. MMODL / IJN: [id number] /
[2018-01-13 22:57] LABS: Hemoglobin A1C 7.7 % (4.0-6.0)
[2018-01-14] MEDS: oxyCODONE-APAP 5-325MG 1 EACH TAB PO PRN (02:36)
[2018-01-14] MEDS: IPRATROPIUM-ALBUTEROL 3 ML NEB INHALATION PRN (02:37)
[2018-01-14] MEDS ORDERED: IPRATROPIUM-ALBUTEROL 3 ML NEB INHALATION SCH (04:00)
[2018-01-14 07:07] LABS: Glucose,Whole Blood 87 mg/dL (75-99)
[2018-01-14] MEDS: INSULIN ASPART 100 UNIT/ML 1 ML 10 ML VIAL SQ SCH ×4 (07:26→20:50)
[2018-01-14 07:35] LABS: INR 1.1 (<1.2); Prothrombin Time 10.8 sec (9.0-12.0)
[2018-01-14] MEDS: ACETAMINOPHEN TAB 325 MG TAB PO PRN (07:36)
[2018-01-14 07:46] LABS: Albumin 2.6 g/dL (3.5-5.0); Calcium 8.2 mg/dL (8.4-10.2); Potassium 3.9 mmol/L (3.5-5.1); Total Bilirubin 0.6 mg/dL (0.2-1.3); Total Protein 6.1 g/dL (6.3-8.2)
[2018-01-14 07:55] LABS: Anisocytosis Slight; HCT 35.8 % (34.0-46.0); HGB 11.3 gm/dL (11.4-16.0); Hypochromasia Slight; MCH 26.8 pg (25.0-35.0); MCHC 31.5 g/dL (31.0-37.0); Mean Platelet Volume 7.3; Platelet Count 163 k/uL (150-450); Poikilocytosis Slight; RBC 4.22 m/uL (3.80-5.40); RDW 16.1 % (11.5-15.5); WBC 5.8 k/uL (3.8-10.6)
[2018-01-14] MEDS: CEFEPIME 2 GM in SODIUM CHLORIDE 0.9% 50 ML IVPB SCH ×2 (08:00→20:49)
[2018-01-14 09:00] LABS: Band Neutrophils % 29 %; Eosinophils # (M) 0.35 k/uL (0-0.7); Lymphocytes # (M) 0.58 k/uL (1.0-4.8); Metamyelocytes # (M) 0.06 k/uL (0); Metamyelocytes % 1 %; Monocytes # (M) 0.29 k/uL (0-1.0); Neutrophils % (M) 51 %; Nucleated Red Blood Cells 0 /100 WBC (0-0); Total Cells Counted 200
[2018-01-14 09:01] LABS: Toxic Vacuolation Present
[2018-01-14 09:04] LABS: Toxic Granulation Present
[2018-01-14] MEDS ORDERED: RX INFO: IV CONTRAST WAS GIVEN 1 EACH MISC MISCELLANE PRN (09:12)
[2018-01-14] MEDS: IPRATROPIUM-ALBUTEROL 3 ML NEB INHALATION SCH ×4 (09:23→20:30)
[2018-01-14] MEDS: HEPARIN SODIUM,PORCINE 5,000 UNIT/ML 1 ML VIAL SQ SCH ×2 (09:58→20:50)
[2018-01-14] MEDS: LACTOBACILLUS ACIDOPH & BULGAR 1 EACH PACKET PO SCH (09:59)
[2018-01-14] MEDS: PANTOPRAZOLE 40 MG TABLET PO SCH (09:59)
[2018-01-14] MEDS: glipiZIDE 10 MG TAB PO SCH (09:59)
--- NOTE | 2018-01-14 11:00 | US ---
EXAMINATION TYPE: US venous doppler duplex LE DATE OF EXAM: 01/14/2018 10:52 AM COMPARISON: NONE CLINICAL HISTORY: dyspnea, fever, poss PE/DVT. SOB, no h/o dvt SIDE PERFORMED: Bilateral TECHNIQUE: The lower extremity deep venous system is examined utilizing real time linear array sonog ernestina with graded compression, doppler sonography and color-flow sonography. VESSELS IMAGED: External Iliac Vein (EIV) Common Femoral Vein Deep Femoral Vein Greater Saphenous Vein * Femoral Vein Popliteal Vein Small Saphenous Vein * Proximal Calf Veins (* superficial vessels) Grayscale, color doppler, spectral doppler imaging performed of the deep veins of the lower extremiti es. There is normal flow, compressibility, vascular waveforms. Right Leg: Appears negative for DVT Left Leg: Appears negative for DVT IMPRESSION: No sonographic evidence of deep venous thrombosis within either lower extremity.
[2018-01-14 11:30] LABS: Glucose,Whole Blood 54 mg/dL (75-99)
[2018-01-14 12:17] LABS: Glucose,Whole Blood 95 mg/dL (75-99)
--- NOTE | 2018-01-14 12:47 | CT ---
EXAMINATION TYPE: CT angio chest DATE OF EXAM: 01/14/2018 COMPARISON: Prior PET/CT 10/06/2017 HISTORY: Shortness of breath CT DLP: 428.4 mGycm Automated exposure control for dose reduction was used. CONTRAST: CTA scan of the thorax is performed with IV Contrast, patient injected with 100 mL of Omnipaque 300, pulmonary embolism protocol. MIP images are created and reviewed. 3D reconstructed images are creat ed on an independent workstation and reviewed. FINDINGS: LUNGS: There are bilateral emphysematous changes. Probable dependent atelectatic changes are present, difficult to exclude a right lower lobe pneumonia, there are some air bronchograms present at the po sterior costophrenic angle. There are interstitial changes within the lungs. Nodular density is prese nt in the region of the fissure on the right measuring approximately 1 cm which is indeterminate. The re is no pleural effusion or pneumothorax seen. The tracheobronchial tree is patent. AORTA: No additional significant abnormality is seen. Coronary artery calcifications are present. Th e pulmonary artery is prominent, correlate for possible pulmonary artery hypertension. 4 super aortic branch vessels present from the transverse aorta. MEDIASTINUM: There is satisfactory enhancement of the pulmonary artery and its branches, there is no CT evidence for pulmonary embolism. There is mediastinal adenopathy subcarinal location, bilateral h ilar adenopathy No pericardial effusion is seen. OTHER: Multiple hypodense foci within the liver compatible with metastatic disease. There is subcaps ular fluid collection suspected along the lateral margin of the liver measuring approximately 14 x 5 by greater than 10 cm showing low attenuation. IMPRESSION: NO EVIDENT PULMONARY EMBOLISM. METASTATIC DISEASE. SUBCAPSULAR FLUID COLLECTION MAY REPRESENT REMOTE HEMORRHAGE. CORRELATE FOR PULMONARY ARTERY HYPERTENSION.
[2018-01-14] MEDS: MORPHINE ORAL SOLN 10 MG/5 ML CUP PO PRN ×2 (12:52→21:01)
--- NOTE | 2018-01-14 13:10 | P.GSCN ---
History of Present Illness Consult date: 01/14/18 Reason for Consult: Suspect hepatic abscess History of present illness: 72-year-old female being seen at the request of the attending for a surgical eval. Patient had a CAT scan of the abdomen and pelvis with contrast done on the it showed gallbladder thickening liver multiple metastasis no evidence of diverticulitis. There was a mass arising from the anterior right hepatic lobe measuring 14 x 6 x 20. The findings were suspicious hepatic abscess Patient states that she was diagnosed with liver lesions consistent with metastatic disease in September 2017. Patient stated that she did have a liver biopsy in November 2017 at the [facility]. it came back as HCC. Patient was felt not to be a candidate for surgery or chemo embolization patient stated that about several days prior to coming into the emergency room was started on nexavar. Patient stated that she noted after starting the new medication she felt feverish chills no appetite increase weakness decreased endurance.. Patient came into the hospital with the above-mentioned symptoms. In the emergency room patient's temp was elevated to 104.3 workup of the chest was negative Review of Systems Essentially unremarkable except as mentioned in the present illness Past Medical History Past Medical History: Cancer, Heart Failure, Diabetes Mellitus, Hyperlipidemia, Hypertension Additional Past Medical History / Comment(s): RLS. SUSPECTED OF HAVING LIVER CANCER. Pt was unable to verfiy all of her History History of Any Multi-Drug Resistant Organisms: None Reported Past Surgical History: Back Surgery Additional Past Surgical History / Comment(s): COLONOCOPY Past Anesthesia/Blood Transfusion Reactions: No Reported Reaction Past Psychological History: No Psychological Hx Reported Smoking Status: Former smoker Past Alcohol Use History: None Reported Additional Past Alcohol Use History / Comment(s): QUIT SMOKING 2011 Past Drug Use History: None Reported - Past Family History Father Family Medical History: Cancer Mother Family Medical History: Congestive Heart Failure (CHF), COPD Brother(s) Family Medical History: Cancer Medications and Allergies Home Medications Medication Instructions Recorded Confirmed Type Furosemide [Lasix] 60 mg PO DAILY 05/10/16 01/13/18 History L.acidoph,Paracasei, B.lactis 1 cap PO DAILY 05/10/16 01/11/18 History [Probiotic] Magnesium Oxide [Magox 400] 400 mg PO DAILY 05/10/16 01/11/18 History Potassium Chloride ER [K-Dur 20] 20 meq PO BID 05/10/16 01/11/18 History rOPINIRole HCL [Requip] 5 mg PO HS 05/10/16 01/11/18 History Lisinopril [Zestril] 5 mg PO DAILY #30 tab 05/12/16 01/11/18 Rx Ezetimibe [Zetia] 10 mg PO DAILY 10/23/17 01/11/18 History Glucosamine-Chondr 500-400Mg 1 tab PO DAILY 10/23/17 01/11/18 History Insulin Glargine [Lantus] 63 unit SQ DAILY 10/23/17 01/11/18 History Insulin Lispro [humaLOG Kwikpen] 12 unit SQ AC-BRKFST PRN 01/11/18 01/13/18 History Ondansetron [Zofran ODT] 4 mg PO Q8HR PRN 01/11/18 01/11/18 History oxyCODONE-APAP 5-325MG [Percocet 1 tab PO Q6HR PRN 01/11/18 01/11/18 History 5-325 mg] Acetaminophen/Diphenhydramine 1 tab PO HS PRN 01/13/18 01/13/18 History [Tylenol PM 500-25mg] Albuterol Nebulized [Ventolin 2.5 mg INHALATION RT-Q4H PRN 01/13/18 01/13/18 History Nebulized] Insulin Lispro [humaLOG Kwikpen] 12 units SQ AC-LUNCH 01/13/18 01/13/18 History Insulin Lispro [humaLOG Kwikpen] 16 unit SQ AC-SUPPER 01/13/18 01/13/18 History Melatonin 3 mg PO HS PRN 01/13/18 01/13/18 History Ipratropium-Albuterol Nebulize 3 ml INHALATION Q4HR PRN 01/14/18 01/14/18 History [Duoneb 0.5 mg-3 mg/3 ml Soln] Allergies Allergy/AdvReac Type Severity Reaction Status Date / Time Penicillins AdvReac Rash/Hives Verified 01/13/18 11:33 Surgical - Exam Vital Signs Temp Pulse Resp BP Pulse Ox 104.3 F H 113 H 20 114/65 92 L 01/11/18 17:43 01/11/18 17:43 01/11/18 17:43 01/11/18 17:43 01/11/18 17:43 GENERAL APPEARANCE: 72-year-old female patient is alert, oriented, in no acute distress. VITAL SIGNS: Reviewed HEENT: Head is normocephalic and atraumatic. Pupils are equal and reactive. The nares are patent. Oropharynx is clear without lesions. NECK: Supple without lymphadenopathy. Traches midline. HEART: S1, S2. Regular rate and rhythm. Denying chest pain LUNGS: No crackles or wheezes are heard. Adequate air movement bilaterally ABDOMEN: Soft, nontender, nondistended with good bowel sounds. No peritoneal signs. No palpable organomegaly or masses. He should states has tenderness in the right lower quadrant no nausea no vomiting decrease appetite "just don't feel like eating EXTREMITIES: Normal skin color and turgor. No cyanosis, rash, ulceration, clubbing or edema. Radial pedal pulses are 2/4 bilaterally. NEUROLOGICAL: No focal deficits. Strength and sensation are grossly intact. Results - Labs 01/14/18 07:01 01/14/18 07:01 Abnormal Lab Results - Last 24 Hours (Table) 01/13/18 01/13/18 01/13/18 Range/Units 06:47 17:19 20:18 Hgb (11.4-16.0) gm/dL RDW (11.5-15.5) % Lymphocytes # (Manual) (1.0-4.8) k/uL Metamyelocytes # (Man) (0) k/uL Sodium (137-145) mmol/L POC Glucose (mg/dL) 138 H 139 H (75-99) mg/dL Hemoglobin A1c 7.7 H (4.0-6.0) % Calcium (8.4-10.2) mg/dL AST (14-36) U/L Alkaline Phosphatase (38-126) U/L Total Protein (6.3-8.2) g/dL Albumin (3.5-5.0) g/dL 01/14/18 01/14/18 01/14/18 Range/Units 07:01 07:01 11:24 Hgb 11.3 L (11.4-16.0) gm/dL RDW 16.1 H (11.5-15.5) % Lymphocytes # (Manual) 0.58 L (1.0-4.8) k/uL Metamyelocytes # (Man) 0.06 H (0) k/uL Sodium 136 L (137-145) mmol/L POC Glucose (mg/dL) 54 L (75-99) mg/dL Hemoglobin A1c (4.0-6.0) % Calcium 8.2 L (8.4-10.2) mg/dL AST 48 H (14-36) U/L Alkaline Phosphatase 253 H (38-126) U/L Total Protein 6.1 L (6.3-8.2) g/dL Albumin 2.6 L (3.5-5.0) g/dL Microbiology - Last 24 Hours (Table) 01/11/18 18:37 Urine Culture - Final Urine,Voided Klebsiella pneumoniae 01/11/18 18:07 Blood Culture - Preliminary Blood No Growth after 48 hours Diabetes panel 01/13/18 01/14/18 Range/Units 06:47 07:01 Sodium 136 L (137-145) mmol/L Potassium 3.9 (3.5-5.1) mmol/L Chloride 106 (98-107) mmol/L Carbon Dioxide 22 (22-30) mmol/L BUN 17 (7-17) mg/dL Creatinine 0.89 (0.52-1.04) mg/dL Glucose 82 (74-99) mg/dL Hemoglobin A1c 7.7 H (4.0-6.0) % Calcium 8.2 L (8.4-10.2) mg/dL AST 48 H (14-36) U/L ALT 45 (9-52) U/L Alkaline Phosphatase 253 H (38-126) U/L Total Protein 6.1 L (6.3-8.2) g/dL Albumin 2.6 L (3.5-5.0) g/dL Calcium panel 01/14/18 Range/Units 07:01 Calcium 8.2 L (8.4-10.2) mg/dL Albumin 2.6 L (3.5-5.0) g/dL Pituitary panel 01/14/18 Range/Units 07:01 Sodium 136 L (137-145) mmol/L Potassium 3.9 (3.5-5.1) mmol/L Chloride 106 (98-107) mmol/L Carbon Dioxide 22 (22-30) mmol/L BUN 17 (7-17) mg/dL Creatinine 0.89 (0.52-1.04) mg/dL Glucose 82 (74-99) mg/dL Calcium 8.2 L (8.4-10.2) mg/dL Adrenal panel 01/14/18 Range/Units 07:01 Sodium 136 L (137-145) mmol/L Potassium 3.9 (3.5-5.1) mmol/L Chloride 106 (98-107) mmol/L Carbon Dioxide 22 (22-30) mmol/L BUN 17 (7-17) mg/dL Creatinine 0.89 (0.52-1.04) mg/dL Glucose 82 (74-99) mg/dL Calcium 8.2 L (8.4-10.2) mg/dL Total Bilirubin 0.6 (0.2-1.3) mg/dL AST 48 H (14-36) U/L ALT 45 (9-52) U/L Alkaline Phosphatase 253 H (38-126) U/L Total Protein 6.1 L (6.3-8.2) g/dL Albumin 2.6 L (3.5-5.0) g/dL Assessment and Plan Assessment: Impression Present on admission febrile temp of 104 after starting nexavar A recent liver lesion biopsy complicated by severe artery bleeding requiring embolization November done at [facility] CAT scan abdomen and pelvis this admission suspicious findings of hepatic abscess Metastatic liver cancer Hypertension essential Plan Patient is scheduled this afternoon by interventional radiology for possible CT- guided aspiration/ biopsy of the liver abscess No evidence of an acute surgical abdomen at this time Pain control Will follow with you DVT and GI prophylaxis IV antibiotics per infectious disease Surgical consultation note dictated for Dr. diaz The above impression and plan of care have been discussed and directed by signing physician. Bella Hartley nurse practitioner acting as scribe for signing physician.
--- NOTE | 2018-01-14 14:23 | CT ---
EXAMINATION TYPE: CT guided FNA DATE OF EXAM: 01/14/2018 COMPARISON: 01/14/2018 HISTORY: Request is for fine-needle aspiration of possible liver abscess versus necrotic tumor. Drain placement was deferred by referring physician. CT DLP: 1636mGycm PROCEDURE: The risks, applications, benefits and alternatives, were discussed with the patient and questions wer e answered. Informed consent was obtained. The patient was placed supine on the fluoroscopic table, prepped and draped in the usual sterile fashion. A 18-gauge system was utilized with direct passage of the needle into the right lobe liver lesion un meghna CT guidance. Samples were obtained with fine needle aspiration. Pathology pending. The patient was stable throughout procedure and remained stable upon discharge from radiology. All e lements of maximal barrier and sterile technique were utilized. IMPRESSION: 1. Successful right lobe liver mass fine needle aspiration under CT guidance.
[2018-01-14] MEDS: EZETIMIBE 10 MG TAB PO SCH (14:40)
[2018-01-14] MEDS: DOCUSATE 100 MG CAP PO SCH (14:40)
[2018-01-14] MEDS: LISINOPRIL 5 MG TAB PO SCH (14:40)
[2018-01-14] MEDS: MAGNESIUM OXIDE 400 MG TAB PO SCH (14:40)
[2018-01-14] MEDS: FUROSEMIDE 40 MG TAB PO SCH (14:40)
[2018-01-14] MEDS: POTASSIUM CHLORIDE ER 20 MEQ TAB.ER PO SCH ×2 (14:40→20:51)
--- NOTE | 2018-01-14 15:28 | P.PN ---
Subjective Progress Note Date: 01/14/18 This is a 72-year-old female with past medical history noted below significant for metastatic liver cancer who was recently started on Nexavar by her oncologist. Patient said that she has not been feeling well for the past couple of days. She was having low-grade fever at home. She was evaluated by her oncologist in the office and was given some IV fluid and was instructed to go to the emergency room if her fever persists. Patient said that she had a fever of 102.0 at home. She was having chills as well. She denies any flulike symptoms. No cough or shortness of breath. She reported having some burning with her urine but no significant increase in urinary frequency. No abdominal pain. She is also complaining of diarrhea with loose stool up to 4 times per day. She was evaluated in the emergency room and was found to be in severe sepsis without septic shock. She is currently admitted to the hospital for further evaluation. She is feeling a lot better this morning. 01/14/2018 patient is scheduled for CT-guided biopsy of liver abscess. Infectious disease, surgical service and oncology are following. Oncology is also ordered a computed tomography scan of the chest and venous Dopplers of lower extremity. She also is being treated for UTI urine culture growing Klebsiella pneumoniae. Still having low-grade temps for 100.6 heart rate 112. Also hypoglycemic blood sugar in the 50s likely related to not eating for her procedure. Glipizide discontinued. Objective - Vital Signs Vital signs: Vital Signs Temp 100.6 F H 01/14/18 07:00 Pulse 101 H 01/14/18 14:10 Resp 22 01/14/18 14:10 BP 117/62 01/14/18 14:10 Pulse Ox 95 01/14/18 14:10 Intake & Output 01/13/18 01/14/18 01/14/18 18:59 06:59 18:59 Intake Total 240 1090 350 Balance 240 1090 350 Intake: Intake, IV Titration 350 350 Amount Cefepime 2 gm In Sodium 100 350 Chloride 0.9% 50 ml @ 100 mls/hr IVPB Q12HR EMA Rx #:[id number] Vancomycin 1,500 mg In 250 Sodium Chloride 0.9% 250 ml @ 125 mls/hr IVPB Q16H EMA Rx#:[id number] Oral 240 740 Other: Voiding Method Toilet Toilet Toilet # Voids 3 2 - Exam Head normocephalic Neck supple Lungs clear to auscultation bilaterally no wheezing or crackles Heart regular rate and rhythm S1-S2, no rub or gallop Abdomen is soft nontender nondistended positive bowel sounds no hepatosplenomegaly Extremities no edema Neuro alert and orientated to 3 - Labs CBC & Chem 7: 01/14/18 07:01 01/14/18 07:01 Labs: Abnormal Lab Results - Last 24 Hours (Table) 01/13/18 01/13/18 01/13/18 Range/Units 06:47 17:19 20:18 Hgb (11.4-16.0) gm/dL RDW (11.5-15.5) % Lymphocytes # (Manual) (1.0-4.8) k/uL Metamyelocytes # (Man) (0) k/uL Sodium (137-145) mmol/L POC Glucose (mg/dL) 138 H 139 H (75-99) mg/dL Hemoglobin A1c 7.7 H (4.0-6.0) % Calcium (8.4-10.2) mg/dL AST (14-36) U/L Alkaline Phosphatase (38-126) U/L Total Protein (6.3-8.2) g/dL Albumin (3.5-5.0) g/dL 01/14/18 01/14/18 01/14/18 Range/Units 07:01 07:01 11:24 Hgb 11.3 L (11.4-16.0) gm/dL RDW 16.1 H (11.5-15.5) % Lymphocytes # (Manual) 0.58 L (1.0-4.8) k/uL Metamyelocytes # (Man) 0.06 H (0) k/uL Sodium 136 L (137-145) mmol/L POC Glucose (mg/dL) 54 L (75-99) mg/dL Hemoglobin A1c (4.0-6.0) % Calcium 8.2 L (8.4-10.2) mg/dL AST 48 H (14-36) U/L Alkaline Phosphatase 253 H (38-126) U/L Total Protein 6.1 L (6.3-8.2) g/dL Albumin 2.6 L (3.5-5.0) g/dL Microbiology - Last 24 Hours (Table) 01/11/18 18:37 Urine Culture - Final Urine,Voided Klebsiella pneumoniae 01/11/18 18:07 Blood Culture - Preliminary Blood No Growth after 48 hours Assessment and Plan Assessment: 1. Severe sepsis without septic shock: Source could be intra-abdominal with findings on computed tomography scan of the abdomen suggestive for possible tumor necrosis or hepatic abscess involving some of the liver lesions. Consult IR for possible CT-guided aspiration for cultures. Patient is currently on broad -spectrum antibiotic with vancomycin and cefepime. Patient seen by infectious disease and surgical service. We will continue supportive care. She was resuscitated with IV fluids. C. diff and influenza screen was negative 2. Uncomplicated urinary tract infection awaiting blood and urine culture 3. Metastatic liver cancer recently started on Nexavar at home. Seen and evaluated by oncology. Appreciate recommendations. Plan is to wean her off Nexavar. Patient seen by oncology they've ordered a computed tomography scan of the chest and venous Doppler lower extremities 4. Essential hypertension: Blood pressure well-controlled 5. Type 2 diabetes mellitus we will continue current insulin regimen plus sliding scale area patient having episodes of hypoglycemia likely due to the fact that she was nothing by mouth this morning. I will discontinue the glipizide continue her Lantus and sliding scale coverage 6. DVT prophylaxis with subcu heparin I performed an examination of the patient and discussed their management with the physician Sloop Captain. I have reviewed the Physician Sloop Captain's notes and agree with the documented findings and plan of care
[2018-01-14 17:13] LABS: Glucose,Whole Blood 201 mg/dL (75-99)
[2018-01-14 20:16] LABS: Glucose,Whole Blood 194 mg/dL (75-99)
[2018-01-14] MEDS: SODIUM CHLORIDE 0.9% 1,000 ML IV SCH (20:49)
[2018-01-14] MEDS: INSULIN DETEMIR 100 UNIT/ML 10 ML VIAL SQ SCH (20:55)
--- NOTE | 2018-01-14 23:24 | PN ---
PROGRESS NOTE DATE OF SERVICE: 01/14/2018. REASON FOR FOLLOWUP: Fever, likely liver abscess. INTERVAL HISTORY: The patient did have a fever of 100.6 this morning. The patient denies having any chest pain, shortness of breath or cough. Still has some pain in the right upper quadrant area. No nausea, vomiting or diarrhea. EXAMINATION: Blood pressure is 147/56, pulse of 96, temperature of 99.6. She is 94% on 4 L nasal cannula. General description is an elderly female up in the chair in no distress. RESPIRATORY SYSTEM: Unlabored breathing, decreased breath sounds in the bases, no wheeze. HEART: S1, S2. Regular rate and rhythm. ABDOMEN: Soft mildly distended. No guarding or rigidity. EXTREMITIES: No edema of feet. DIAGNOSTIC IMPRESSION AND PLAN: Patient with fever with concern for possible liver abscess, status post CT-guided drainage. This was supposed to be sent for culture. We will keep the patient on cefepime while waiting for the culture to finalize. Discontinue vancomycin. Continue supportive care. MMODL / IJN: [id number] /
--- NOTE | 2018-01-14 23:49 | P.PN ---
Subjective Progress Note Date: 01/14/18 Principal diagnosis: SOB Fever Patient seen in follow-up today. She overall is feeling ok, denies current SOB, Pain, Nausea, VOmting, DIarrhea. Objective - Vital Signs Vital signs: Vital Signs Temp 100.6 F H 01/14/18 07:00 Pulse 97 01/14/18 12:54 Resp 18 01/14/18 12:43 BP 113/63 01/14/18 07:00 Pulse Ox 98 01/14/18 07:00 Intake & Output 01/13/18 01/14/18 01/14/18 18:59 06:59 18:59 Intake Total 240 1090 Balance 240 1090 Intake: Intake, IV Titration 350 Amount Cefepime 2 gm In Sodium 100 Chloride 0.9% 50 ml @ 100 mls/hr IVPB Q12HR EMA Rx #:[id number] Vancomycin 1,500 mg In 250 Sodium Chloride 0.9% 250 ml @ 125 mls/hr IVPB Q16H EMA Rx#:[id number] Oral 240 740 Other: Voiding Method Toilet Toilet Toilet # Voids 3 2 - Constitutional General appearance: Present: no acute distress, obese - EENT Eyes: Present: normal appearance ENT: Present: NA/AT, normal oropharynx - Neck Details: SUpple - Respiratory Respiratory: bilateral: diminished (No increased effort) - Cardiovascular Rhythm: regular - Gastrointestinal General gastrointestinal: Present: hepatomegaly - Integumentary Integumentary: Present: pale - Neurologic Neurologic: Present: CNII-XII intact - Musculoskeletal Musculoskeletal: Present: gait normal - Psychiatric Psychiatric: Present: A&O x's 3, appropriate affect, intact judgment & insight - Labs CBC & Chem 7: 01/14/18 07:01 01/14/18 07:01 Labs: Abnormal Lab Results - Last 24 Hours (Table) 01/13/18 01/13/18 01/13/18 Range/Units 06:47 17:19 20:18 Hgb (11.4-16.0) gm/dL RDW (11.5-15.5) % Lymphocytes # (Manual) (1.0-4.8) k/uL Metamyelocytes # (Man) (0) k/uL Sodium (137-145) mmol/L POC Glucose (mg/dL) 138 H 139 H (75-99) mg/dL Hemoglobin A1c 7.7 H (4.0-6.0) % Calcium (8.4-10.2) mg/dL AST (14-36) U/L Alkaline Phosphatase (38-126) U/L Total Protein (6.3-8.2) g/dL Albumin (3.5-5.0) g/dL 01/14/18 01/14/18 01/14/18 Range/Units 07:01 07:01 11:24 Hgb 11.3 L (11.4-16.0) gm/dL RDW 16.1 H (11.5-15.5) % Lymphocytes # (Manual) 0.58 L (1.0-4.8) k/uL Metamyelocytes # (Man) 0.06 H (0) k/uL Sodium 136 L (137-145) mmol/L POC Glucose (mg/dL) 54 L (75-99) mg/dL Hemoglobin A1c (4.0-6.0) % Calcium 8.2 L (8.4-10.2) mg/dL AST 48 H (14-36) U/L Alkaline Phosphatase 253 H (38-126) U/L Total Protein 6.1 L (6.3-8.2) g/dL Albumin 2.6 L (3.5-5.0) g/dL Microbiology - Last 24 Hours (Table) 01/11/18 18:37 Urine Culture - Final Urine,Voided Klebsiella pneumoniae 01/11/18 18:07 Blood Culture - Preliminary Blood No Growth after 48 hours Assessment and Plan (1) Sepsis Narrative/Plan: Liver abcess ( ? infected nectrotic tumor) is a suspected. Medication effect on tumor is possible, but less likely, as she has just started Nexavar, and this medication does not typically cause rapid tumor necrosis. Direct medication effect is also unlikely as this is not a typical side effect. On antibiotics, with some improvement in fever pattern - Aspiration of nectrotic area is planned. Agree with same. We will await results Current Visit: Yes Status: Acute Code(s): A41.9 - SEPSIS, UNSPECIFIED ORGANISM SNOMED Code(s): 38762823 (2) Liver cancer Narrative/Plan: 1. Pt recently started on Nexavar. Hold Nexavar at this time until acute issues resolve Current Visit: Yes Status: Acute Code(s): C22.9 - MALIG NEOPLASM OF LIVER, NOT SPECIFIED PRIMARY OR SEC SNOMED Code(s): 49811240 (3) UTI (urinary tract infection) Narrative/Plan: 1. Positive Klebsiella in Urine Culture, patient was provided Levaquin at home, did not begin. Currently on IV abx, to continue Current Visit: Yes Status: Acute Code(s): N39.0 - URINARY TRACT INFECTION, SITE NOT SPECIFIED SNOMED Code(s): 44015182 (4) Acute respiratory failure Narrative/Plan: 1.On Chronic respiratory Failure, wears oxygen at home, non adherent with Oxygen at home. 2. Assess CT of chest for potential PE. 3. Supportive Care Current Visit: Yes Status: Acute Code(s): J96.00 - ACUTE RESPIRATORY FAILURE , UNSP W HYPOXIA OR HYPERCAPNIA SNOMED Code(s): 48195063
[2018-01-15] MEDS: IPRATROPIUM-ALBUTEROL 3 ML NEB INHALATION PRN (03:16)
[2018-01-15 07:12] LABS: Glucose,Whole Blood 101 mg/dL (75-99)
[2018-01-15 07:37] LABS: Anisocytosis Slight; Basophils % (A) 0 %; Eosinophils # (A) 0.5 k/uL (0-0.7); Eosinophils % (A) 7 %; HGB 10.4 gm/dL (11.4-16.0); Hypochromasia Slight; Lymphocytes # (A) 0.7 k/uL (1.0-4.8); Lymphocytes % (A) 9 %; MCH 27.4 pg (25.0-35.0); MCHC 32.6 g/dL (31.0-37.0); MCV 84.1 fL (80.0-100.0); Mean Platelet Volume 7.8; Monocytes # (A) 0.2 k/uL (0-1.0); Monocytes % (A) 3 %; Neutrophils # (A) 6.2 k/uL (1.3-7.7); Neutrophils % (A) 80 %; Platelet Count 161 k/uL (150-450); Poikilocytosis Slight; RDW 16.5 % (11.5-15.5); WBC 7.8 k/uL (3.8-10.6)
[2018-01-15 07:47] LABS: Albumin 2.5 g/dL (3.5-5.0); Calcium 8.1 mg/dL (8.4-10.2); Potassium 4.2 mmol/L (3.5-5.1); Total Bilirubin 0.7 mg/dL (0.2-1.3); Total Protein 5.7 g/dL (6.3-8.2)
[2018-01-15] MEDS: IPRATROPIUM-ALBUTEROL 3 ML NEB INHALATION SCH ×4 (07:50→20:04)
[2018-01-15] MEDS: INSULIN ASPART 100 UNIT/ML 1 ML 10 ML VIAL SQ SCH ×4 (07:54→21:55)
[2018-01-15] MEDS: PANTOPRAZOLE 40 MG TABLET PO SCH (07:54)
[2018-01-15] MEDS: ACETAMINOPHEN TAB 325 MG TAB PO PRN ×2 (07:54→22:09)
[2018-01-15] MEDS: DOCUSATE 100 MG CAP PO SCH (07:55)
[2018-01-15] MEDS: EZETIMIBE 10 MG TAB PO SCH (07:55)
[2018-01-15] MEDS: FUROSEMIDE 40 MG TAB PO SCH (07:55)
[2018-01-15] MEDS: HEPARIN SODIUM,PORCINE 5,000 UNIT/ML 1 ML VIAL SQ SCH ×2 (07:55→21:58)
[2018-01-15] MEDS: LACTOBACILLUS ACIDOPH & BULGAR 1 EACH PACKET PO SCH (07:55)
[2018-01-15] MEDS: LISINOPRIL 5 MG TAB PO SCH (07:56)
[2018-01-15] MEDS: POTASSIUM CHLORIDE ER 20 MEQ TAB.ER PO SCH ×2 (07:56→21:58)
[2018-01-15] MEDS: CEFEPIME 2 GM in SODIUM CHLORIDE 0.9% 50 ML IVPB SCH ×2 (07:57→21:56)
[2018-01-15 11:15] LABS: Glucose,Whole Blood 135 mg/dL (75-99)
[2018-01-15] MEDS: SODIUM CHLORIDE 0.9% 1,000 ML IV SCH ×3 (11:41→21:57)
[2018-01-15] MEDS: MAGNESIUM OXIDE 400 MG TAB PO SCH (13:13)
[2018-01-15] MEDS ORDERED: DIPHENOX-ATROP 2.5-0.025 MG 1 EACH TAB PO PRN (13:35)
--- NOTE | 2018-01-15 13:41 | P.PN ---
Subjective Progress Note Date: 01/15/18 This is a 72-year-old female with past medical history noted below significant for metastatic liver cancer who was recently started on Nexavar by her oncologist. Patient said that she has not been feeling well for the past couple of days. She was having low-grade fever at home. She was evaluated by her oncologist in the office and was given some IV fluid and was instructed to go to the emergency room if her fever persists. Patient said that she had a fever of 102.0 at home. She was having chills as well. She denies any flulike symptoms. No cough or shortness of breath. She reported having some burning with her urine but no significant increase in urinary frequency. No abdominal pain. She is also complaining of diarrhea with loose stool up to 4 times per day. She was evaluated in the emergency room and was found to be in severe sepsis without septic shock. She is currently admitted to the hospital for further evaluation. She is feeling a lot better this morning. 01/14/2018 patient is scheduled for CT-guided biopsy of liver abscess. Infectious disease, surgical service and oncology are following. Oncology is also ordered a computed tomography scan of the chest and venous Dopplers of lower extremity. She also is being treated for UTI urine culture growing Klebsiella pneumoniae. Still having low-grade temps for 100.6 heart rate 112. Also hypoglycemic blood sugar in the 50s likely related to not eating for her procedure. Glipizide discontinued. 01/15/2018 patient sitting at the bedside chair comfortably. Denies any pain. CTA was negative for PE Dopplers are negative for DVT. She is still requiring oxygen. About 4 L nasal cannula. Patient reports just recently at home she was placed on oxygen and usually is around 3 L. patient reporting that she still having diarrhea. Stool for C. diff has been ordered. She's also had worsening in creatinine. Creatinine is up to 1.38. Lasix discontinued. Fluids at been increased to 100 mL an hour. Patient also had a nodular temp this morning of 101.6 and has been having evidence of tachycardia. Objective - Vital Signs Vital signs: Vital Signs Temp 101.6 F H 01/15/18 07:00 Pulse 96 01/15/18 11:57 Resp 30 H 01/15/18 07:00 BP 100/56 01/15/18 07:00 Pulse Ox 90 L 01/15/18 07:05 Intake & Output 01/14/18 01/15/18 01/15/18 18:59 06:59 18:59 Intake Total 350 1540 Balance 350 1540 Intake: Intake, IV Titration 350 700 Amount Cefepime 2 gm In Sodium 350 100 Chloride 0.9% 50 ml @ 100 mls/hr IVPB Q12HR EMA Rx #:[id number] Sodium Chloride 0.9% 1, 600 000 ml @ 50 mls/hr IV . Q20H EMA Rx#:[id number] Oral 840 Other: Voiding Method Toilet Bedside Commode Bedside Commode # Voids 3 - Exam Head normocephalic Neck supple Lungs diminished bilaterally with a few crackles on the right base Heart regular rate and rhythm S1-S2, no rub or gallop Abdomen is soft nontender nondistended positive bowel sounds no hepatosplenomegaly. Bandage noted on the right upper quadrant from CT-guided drainage of abscess Extremities no edema Neuro alert and orientated to 3 - Labs CBC & Chem 7: 01/15/18 06:43 01/15/18 06:43 Labs: Abnormal Lab Results - Last 24 Hours (Table) 01/14/18 01/14/18 01/15/18 Range/Units 17:11 20:15 06:43 Hgb 10.4 L (11.4-16.0) gm/dL Hct 32.0 L (34.0-46.0) % RDW 16.5 H (11.5-15.5) % Lymphocytes # 0.7 L (1.0-4.8) k/uL BUN (7-17) mg/dL Creatinine (0.52-1.04) mg/dL POC Glucose (mg/dL) 201 H 194 H (75-99) mg/dL Calcium (8.4-10.2) mg/dL Alkaline Phosphatase (38-126) U/L Total Protein (6.3-8.2) g/dL Albumin (3.5-5.0) g/dL 01/15/18 01/15/18 01/15/18 Range/Units 06:43 06:55 11:14 Hgb (11.4-16.0) gm/dL Hct (34.0-46.0) % RDW (11.5-15.5) % Lymphocytes # (1.0-4.8) k/uL BUN 24 H (7-17) mg/dL Creatinine 1.38 H (0.52-1.04) mg/dL POC Glucose (mg/dL) 101 H 135 H (75-99) mg/dL Calcium 8.1 L (8.4-10.2) mg/dL Alkaline Phosphatase 274 H (38-126) U/L Total Protein 5.7 L (6.3-8.2) g/dL Albumin 2.5 L (3.5-5.0) g/dL Microbiology - Last 24 Hours (Table) 01/14/18 14:15 Gram Stain - Preliminary Abdomen Wound Culture - Preliminary 01/14/18 14:15 Gram Stain - Preliminary Aspirate Body Fluid Culture - Preliminary 01/14/18 14:15 Anaerobic Culture - Preliminary Abdomen 01/14/18 14:15 Anaerobic Culture - Preliminary Aspirate 01/11/18 18:07 Blood Culture - Preliminary Blood No Growth after 72 hours Assessment and Plan Assessment: 1. Severe sepsis without septic shock present on admission: Likely secondary to liver abscess. computed tomography scan of the abdomen suggestive for possible tumor necrosis or hepatic abscess involving some of the liver lesions. 2. liver abscess status post CT-guided drainage. Cultures pending. Patient currently on cefepime. Infectious disease following 3. Uncomplicated urinary tract infection: Urine culture growing Klebsiella pneumoniae. Infectious disease following. Continue cefepime 4. Metastatic liver cancer recently started on Nexavar at home. Seen and evaluated by oncology. Appreciate recommendations. Plan is to wean her off Nexavar. 4. Essential hypertension: Blood pressure has been on the lower side. We'll place parameters around the lisinopril also note that Lasix discontinued today due to elevated 5. Type 2 diabetes mellitus: No further episodes of hypoglycemia. Glipizide discontinued. Continue with the sliding scale coverage and her current Lantus dose 6. Acute kidney injury: Creatinine up to 1.38. Possibly medication induced or due to IV contrast from the CAT scan. Lasix discontinued. Vancomycin discontinued yesterday. Patient is an placed on IV fluids normal saline 100 mL hours. Patient also reporting diarrhea. Stool for C. diff negative on January 12. Start Lomotil 7. Hypoxia: Patient requiring 4-[address] negative for PE. Pulmonary service will be consulted 8. Fever spike: Check blood culture. Continue antibiotics. Awaiting culture results from liver abscess DVT prophylaxis with subcu heparin I performed an examination of the patient and discussed their management with the physician [employer] Specialist. I have reviewed the Physician [employer] C[employer] Specialist's notes and agree with the documented findings and plan of care
--- NOTE | 2018-01-15 15:00 | P.PN ---
Subjective Progress Note Date: 01/15/18 72-year-old female seen and examined sitting up in a chair patient is status post CT-guided biopsy of a liver abscess. Marifer patient is denying abdominal discomfort when questioning. Patient did have a CAT scan of the chest did show seborrheic capsular fluid collection along the lateral margin of the liver that may represent a remote hemorrhage. Abdomen soft nondistended dressing to site dry Objective - Vital Signs Vital signs: Vital Signs Temp 101.6 F H 01/15/18 07:00 Pulse 96 01/15/18 11:57 Resp 30 H 01/15/18 07:00 BP 100/56 01/15/18 07:00 Pulse Ox 90 L 01/15/18 07:05 Intake & Output 01/14/18 01/15/18 01/15/18 18:59 06:59 18:59 Intake Total 350 1540 800 Balance 350 1540 800 Intake: Intake, IV Titration 350 700 800 Amount Cefepime 2 gm In Sodium 350 100 Chloride 0.9% 50 ml @ 100 mls/hr IVPB Q12HR EMA Rx #:[id number] Sodium Chloride 0.9% 1, 800 000 ml @ 100 mls/hr IV . Q10H EMA Rx#:[id number] Sodium Chloride 0.9% 1, 600 000 ml @ 50 mls/hr IV . Q20H EMA Rx#:[id number] Oral 840 Other: Voiding Method Toilet Bedside Commode Bedside Commode # Voids 3 - Exam Exam Abdomen dressing to surgical site from the CT guided biopsy right upper quadrant dry soft nondistended no facial grimacing with palpitation to the abdominal wall no nausea no vomiting - Labs CBC & Chem 7: 01/15/18 06:43 01/15/18 06:43 Labs: Abnormal Lab Results - Last 24 Hours (Table) 01/14/18 01/14/18 01/15/18 Range/Units 17:11 20:15 06:43 Hgb 10.4 L (11.4-16.0) gm/dL Hct 32.0 L (34.0-46.0) % RDW 16.5 H (11.5-15.5) % Lymphocytes # 0.7 L (1.0-4.8) k/uL BUN (7-17) mg/dL Creatinine (0.52-1.04) mg/dL POC Glucose (mg/dL) 201 H 194 H (75-99) mg/dL Calcium (8.4-10.2) mg/dL Alkaline Phosphatase (38-126) U/L Total Protein (6.3-8.2) g/dL Albumin (3.5-5.0) g/dL 01/15/18 01/15/18 01/15/18 Range/Units 06:43 06:55 11:14 Hgb (11.4-16.0) gm/dL Hct (34.0-46.0) % RDW (11.5-15.5) % Lymphocytes # (1.0-4.8) k/uL BUN 24 H (7-17) mg/dL Creatinine 1.38 H (0.52-1.04) mg/dL POC Glucose (mg/dL) 101 H 135 H (75-99) mg/dL Calcium 8.1 L (8.4-10.2) mg/dL Alkaline Phosphatase 274 H (38-126) U/L Total Protein 5.7 L (6.3-8.2) g/dL Albumin 2.5 L (3.5-5.0) g/dL Microbiology - Last 24 Hours (Table) 01/14/18 14:15 Gram Stain - Preliminary Abdomen Wound Culture - Preliminary 01/14/18 14:15 Gram Stain - Preliminary Aspirate Body Fluid Culture - Preliminary 01/14/18 14:15 Anaerobic Culture - Preliminary Abdomen 01/14/18 14:15 Anaerobic Culture - Preliminary Aspirate 01/11/18 18:07 Blood Culture - Preliminary Blood No Growth after 72 hours Assessment and Plan Assessment: Impression Present on admission febrile temp of 104 after starting nexavar A recent liver lesion biopsy complicated by severe artery bleeding requiring embolization November done at [facility] CAT scan abdomen and pelvis this admission suspicious findings of hepatic abscess Metastatic liver cancer Hypertension essential Status post CT-guided aspiration and drainage of a pelvic abscess done January 14 Plan No evidence of an acute surgical abdomen at this time Pain control Will follow with you DVT and GI prophylaxis IV antibiotics per infectious disease note dictated for Dr. diaz The above impression and plan of care have been discussed and directed by signing physician. Bella Hartley nurse practitioner acting as scribe for signing physician.
[2018-01-15] MEDS: MORPHINE ORAL SOLN 10 MG/5 ML CUP PO PRN (16:33)
[2018-01-15 17:23] LABS: Glucose,Whole Blood 186 mg/dL (75-99)
[2018-01-15 20:26] LABS: Glucose,Whole Blood 244 mg/dL (75-99)
--- NOTE | 2018-01-15 20:53 | PN ---
PROGRESS NOTE DATE OF SERVICE: 01/15/2018. REASON FOR FOLLOWUP: Fever and a question of a liver abscess. INTERVAL HISTORY: The patient did have a fever of 101 Fahrenheit this morning. The patient is currently afebrile. She is breathing comfortably. Denies having any chest pain. Abdominal pain is slightly controlled. No nausea, vomiting, or any diarrhea. PHYSICAL EXAMINATION: Blood pressure 104/71 with a pulse of 97, temperature 99.1, T-max is 101, she is 97% on 4 L nasal cannula. General description is an elderly female up in the chair in no distress. Respiratory system unlabored breathing. Decreased breath sounds at the bases. No wheeze. Heart S1, S2. Regular rate and rhythm. ABDOMEN: Soft, nondistended. No guarding or rigidity. LABS: The blood culture has been negative. The CT-guided aspirate of the abdominal source so far negative. DIAGNOSTIC IMPRESSION AND PLAN: Patient with fever with a question of the capsular liver, fluid collection, question hematoma versus an abscess status post CT-guided drainage. We will wait for those cultures to finalize. Continue the patient on cefepime and p.o. Flagyl adjusting it further based on clinical response. Continue supportive care. MMODL / IJN: [id number] /
[2018-01-15] MEDS: INSULIN DETEMIR 100 UNIT/ML 10 ML VIAL SQ SCH (21:56)
[2018-01-15] MEDS: oxyCODONE-APAP 5-325MG 1 EACH TAB PO PRN (22:04)
[2018-01-15] MEDS: metroNIDAZOLE 500 MG TAB PO SCH (22:40)
[2018-01-16 03:15] LABS: Glucose,Whole Blood 171 mg/dL (75-99)
--- NOTE | 2018-01-16 03:56 | XR ---
EXAM: XR Chest, 1 View CLINICAL HISTORY: ITS.REASON XR Reason: sob difficulty breathing TECHNIQUE: Frontal view of the chest. COMPARISON: Chest x-ray dated 01/11/2018, and CT chest dated 01/14/2018. FINDINGS: Lungs: Slightly increased atelectasis or fluid within the right minor fissure. Pleural space: Unremarkable. No pneumothorax. Heart: Mild to moderate cardiomegaly. Mediastinum: Unremarkable. Bones/joints: Unremarkable. Vasculature: Increased perihilar hazy opacities may represent mild pulmonary venous congestion. IMPRESSION: 1. Increased perihilar hazy opacities may represent mild pulmonary venous congestion. 2. Slightly increased atelectasis or fluid within the right minor fissure.
[2018-01-16 03:59] LABS: Albumin 2.6 g/dL (3.5-5.0); Calcium 8.4 mg/dL (8.4-10.2); Potassium 4.2 mmol/L (3.5-5.1); Total Bilirubin 0.6 mg/dL (0.2-1.3); Total Protein 5.9 g/dL (6.3-8.2)
[2018-01-16] MEDS: SODIUM CHLORIDE 0.9% 1,000 ML IV SCH ×4 (04:21→16:31)
[2018-01-16 04:22] LABS: Anisocytosis Slight; HCT 31.9 % (34.0-46.0); HGB 9.9 gm/dL (11.4-16.0); Hypochromasia Moderate; MCH 26.9 pg (25.0-35.0); MCV 86.6 fL (80.0-100.0); Mean Platelet Volume 8.1; Platelet Count 157 k/uL (150-450); Poikilocytosis Slight; RBC 3.68 m/uL (3.80-5.40); RDW 16.5 % (11.5-15.5); WBC 9.4 k/uL (3.8-10.6)
[2018-01-16 04:35] LABS: Troponin I 0.018 ng/mL (0.000-0.034)
[2018-01-16 04:53] LABS: Creatine Kinase MB 4.4 ng/mL (0.0-2.4)
[2018-01-16] MEDS: IPRATROPIUM-ALBUTEROL 3 ML NEB INHALATION PRN (05:24)
[2018-01-16] MEDS ORDERED: NOREPINEPHRIN 4 MG-0.9% NS PMX 4 MG/250 ML ML IV SCH (06:30)
[2018-01-16 07:04] LABS: Glucose,Whole Blood 151 mg/dL (75-99)
[2018-01-16] MEDS: INSULIN ASPART 100 UNIT/ML 1 ML 10 ML VIAL SQ SCH ×4 (07:55→20:07)
[2018-01-16] MEDS: EZETIMIBE 10 MG TAB PO SCH (08:42)
[2018-01-16] MEDS: LISINOPRIL 5 MG TAB PO SCH (08:42)
[2018-01-16] MEDS: DOCUSATE 100 MG CAP PO SCH (08:42)
[2018-01-16] MEDS: POTASSIUM CHLORIDE ER 20 MEQ TAB.ER PO SCH ×2 (08:42→20:07)
[2018-01-16] MEDS: metroNIDAZOLE 500 MG TAB PO SCH ×3 (08:42→21:45)
[2018-01-16] MEDS: LACTOBACILLUS ACIDOPH & BULGAR 1 EACH PACKET PO SCH (08:42)
[2018-01-16] MEDS: CEFEPIME 2 GM in SODIUM CHLORIDE 0.9% 50 ML IVPB SCH ×2 (08:42→20:05)
[2018-01-16] MEDS: PANTOPRAZOLE 40 MG TABLET PO SCH (08:42)
[2018-01-16] MEDS: HEPARIN SODIUM,PORCINE 5,000 UNIT/ML 1 ML VIAL SQ SCH ×2 (08:42→20:06)
[2018-01-16] MEDS: IPRATROPIUM-ALBUTEROL 3 ML NEB INHALATION SCH ×4 (10:44→19:19)
[2018-01-16 10:45] LABS: Glucose,Whole Blood 148 mg/dL (75-99)
[2018-01-16] MEDS ORDERED: HYDROCORTISONE SUCCINATE 100 MG/2 ML VIAL IV STA (11:08)
--- NOTE | 2018-01-16 11:20 | P.CNPUL ---
History of Present Illness Consult date: 01/16/18 Reason for consult: other Chief complaint: Sepsis, hypotension History of present illness: Consult dated 01/16/2018 This is a 72-year-old female who has a history of hepatocellular carcinoma. She was recently started on chemotherapy by the oncologist. The patient had not been feeling well for a couple days prior to admission and had fever at home. The patient was seen in the oncology office and sent to the hospital for evaluation. In the ER the patient was found to have a temperature of 102 and she was admitted for sepsis/sepsis syndrome. She was found have urinary tract infection secondary to Klebsiella and more recently was found have a abscess around the liver. This was sampled. Scanning of the liver showed multiple lesions consistent with her underlying hepatocellular carcinoma. Last night, she became more hypotensive and had some respiratory distress and I was called. The patient was moved to the ICU this morning. Currently, she is on O2 at 5 L nasal cannula and receiving a saline IV 100 mL an hour. Norepinephrine is on hold. She received quite a bit of fluid last night. The patient is a DO NOT RESUSCITATE. I confirmed that with her just recently. She would like all medical therapies offered her but no intubation mechanical ventilation and nothing aerobic. She understands that she has a severe and terminal issue. She does not want any additional chemotherapy or treatments for her liver cancer. Review of Systems A 12 point review of systems is positive for shortness of breath and weakness fatigue fever and general generally not feeling well. Her appetite is poor. Her abdomen is distended. She does have a bit of tenderness in the abdominal area. Past Medical History Past Medical History: Cancer, Heart Failure, Diabetes Mellitus, Hyperlipidemia, Hypertension Additional Past Medical History / Comment(s): RLS. SUSPECTED OF HAVING LIVER CANCER. Pt was unable to verfiy all of her History History of Any Multi-Drug Resistant Organisms: None Reported Past Surgical History: Back Surgery Additional Past Surgical History / Comment(s): COLONOCOPY Past Anesthesia/Blood Transfusion Reactions: No Reported Reaction Past Psychological History: No Psychological Hx Reported Smoking Status: Former smoker Past Alcohol Use History: None Reported Additional Past Alcohol Use History / Comment(s): QUIT SMOKING 2011 Past Drug Use History: None Reported - Past Family History Father Family Medical History: Cancer Mother Family Medical History: Congestive Heart Failure (CHF), COPD Brother(s) Family Medical History: Cancer Medications and Allergies Home Medications Medication Instructions Recorded Confirmed Type Furosemide [Lasix] 60 mg PO DAILY 05/10/16 01/13/18 History L.acidoph,Paracasei, B.lactis 1 cap PO DAILY 05/10/16 01/11/18 History [Probiotic] Magnesium Oxide [Magox 400] 400 mg PO DAILY 05/10/16 01/11/18 History Potassium Chloride ER [K-Dur 20] 20 meq PO BID 05/10/16 01/11/18 History rOPINIRole HCL [Requip] 5 mg PO HS 05/10/16 01/11/18 History Lisinopril [Zestril] 5 mg PO DAILY #30 tab 05/12/16 01/11/18 Rx Ezetimibe [Zetia] 10 mg PO DAILY 10/23/17 01/11/18 History Glucosamine-Chondr 500-400Mg 1 tab PO DAILY 10/23/17 01/11/18 History Insulin Glargine [Lantus] 63 unit SQ DAILY 10/23/17 01/11/18 History Insulin Lispro [humaLOG Kwikpen] 12 unit SQ AC-BRKFST PRN 01/11/18 01/13/18 History Ondansetron [Zofran ODT] 4 mg PO Q8HR PRN 01/11/18 01/11/18 History oxyCODONE-APAP 5-325MG [Percocet 1 tab PO Q6HR PRN 01/11/18 01/11/18 History 5-325 mg] Acetaminophen/Diphenhydramine 1 tab PO HS PRN 01/13/18 01/13/18 History [Tylenol PM 500-25mg] Albuterol Nebulized [Ventolin 2.5 mg INHALATION RT-Q4H PRN 01/13/18 01/13/18 History Nebulized] Insulin Lispro [humaLOG Kwikpen] 12 units SQ AC-LUNCH 01/13/18 01/13/18 History Insulin Lispro [humaLOG Kwikpen] 16 unit SQ AC-SUPPER 01/13/18 01/13/18 History Melatonin 3 mg PO HS PRN 01/13/18 01/13/18 History Ipratropium-Albuterol Nebulize 3 ml INHALATION Q4HR PRN 01/14/18 01/14/18 History [Duoneb 0.5 mg-3 mg/3 ml Soln] Allergies Allergy/AdvReac Type Severity Reaction Status Date / Time Penicillins AdvReac Rash/Hives Verified 01/13/18 11:33 Physical Exam Osteopathic Statement: *. No significant issues noted on an osteopathic structural exam other than those noted in the History and Physical/Consult. Vitals: Vital Signs Temp Pulse Pulse Resp BP Pulse Ox 01/16/18 11:08 99 01/16/18 10:44 98 01/16/18 09:53 96 16 106/71 97 01/16/18 09:00 101 H 16 107/69 96 01/16/18 08:56 96 18 01/16/18 08:12 111/58 01/16/18 08:00 98.6 F 18 96 01/16/18 07:57 109/63 01/16/18 07:52 103/66 01/16/18 07:35 98.6 F 96 96/69 01/16/18 07:33 92/65 01/16/18 07:29 94/65 01/16/18 07:21 95/61 01/16/18 07:13 85/57 01/16/18 07:08 97 18 113/58 96 01/16/18 07:01 97 20 102/65 95 01/16/18 06:58 97 16 76/47 94 L 01/16/18 06:39 18 01/16/18 06:38 97 18 87/57 01/16/18 05:59 95 16 93/57 01/16/18 05:56 95 24 94/40 01/16/18 05:32 92 01/16/18 05:22 92 01/16/18 04:55 82/61 01/16/18 04:20 99/42 01/16/18 03:41 69/42 01/16/18 03:32 73/48 01/16/18 03:25 78/45 01/16/18 03:24 64/41 01/16/18 02:30 86 17 79/40 96 01/15/18 23:24 20 01/15/18 22:31 100.8 F H 57 L 18 111/61 93 L 01/15/18 20:16 100 01/15/18 20:04 100 01/15/18 15:40 100 01/15/18 15:30 100 01/15/18 15:00 99.1 F 97 28 H 104/71 97 01/15/18 11:57 96 01/15/18 11:49 96 Intake and Output 01/15/18 01/16/18 01/16/18 22:59 06:59 14:59 Intake Total 588.251 Output Total 90 Balance 498.251 Intake: IV 300 Cefepime 2 gm In Sodium 100 Chloride 0.9% 50 ml @ 100 mls/hr IVPB Q12HR EMA Rx #:[id number] Sodium Chloride 0.9% 1, 200 000 ml @ 100 mls/hr IV . Q10H EMA Rx#:[id number] Intake, IV Titration 48.251 Amount Norepinephrin 4 mg-0.9% 48.251 Ns Pmx 4 mg In 250 ml @ Titrate IV .Q0M EMA Rx#: [id number] Oral 240 Output: Urine 90 Other: Voiding Method Bedside Commode Indwelling Catheter Indwelling Catheter # Voids 1 1 No acute distress, oriented 3. The patient has mild tachypnea and dyspnea. HEENT examination is grossly unremarkable. Mucous membranes are moist. No oral lesions. Neck supple. Full range of motion. No adenopathy thyromegaly or neck vein distention. Cardiovascular examination reveals regular rhythm rate. S1-S2 normal. No S3 or S4. No discernible murmur noted. Lungs reveal a few scattered crackles. Breath sounds are equal. No rhonchi. Abdomen soft bowel sounds are heard. No masses or tenderness. Extremities are intact. No cyanosis or clubbing. Mild edema. Skin is without rash or lesion. Neurologic examination is brief but nonfocal. Results - Laboratory Findings CBC and BMP: 01/16/18 03:30 01/16/18 03:30 PT/INR, D-dimer PT 10.8 sec (9.0-12.0) 01/14/18 07:01 INR 1.1 (<1.2) 01/14/18 07:01 Abnormal lab findings: Abnormal Labs 01/11/18 01/11/18 01/11/18 18:17 18:17 18:17 RBC Hgb Hct RDW 16.2 H Lymphocytes # 0.5 L Lymphocytes # (Manual) Metamyelocytes # (Man) INR 1.2 H Sodium 135 L Carbon Dioxide BUN Creatinine Glucose POC Glucose (mg/dL) Hemoglobin A1c Calcium AST 75 H ALT 57 H Alkaline Phosphatase 290 H CK-MB (CK-2) Total Protein Albumin Urine Appearance Urine Protein Urine Blood Urine Bacteria Hyaline Casts Urine Mucus 01/11/18 01/11/18 01/11/18 18:37 21:22 21:53 RBC Hgb Hct RDW Lymphocytes # Lymphocytes # (Manual) Metamyelocytes # (Man) INR Sodium Carbon Dioxide BUN Creatinine Glucose POC Glucose (mg/dL) 121 H 150 H Hemoglobin A1c Calcium AST ALT Alkaline Phosphatase CK-MB (CK-2) Total Protein Albumin Urine Appearance Cloudy H Urine Protein 2+ H Urine Blood Moderate H Urine Bacteria Moderate H Hyaline Casts 9 H Urine Mucus Rare H 01/12/18 01/12/18 01/12/18 05:57 06:53 11:09 RBC Hgb Hct RDW Lymphocytes # Lymphocytes # (Manual) Metamyelocytes # (Man) INR Sodium Carbon Dioxide BUN Creatinine Glucose POC Glucose (mg/dL) 100 H 115 H 146 H Hemoglobin A1c Calcium AST ALT Alkaline Phosphatase CK-MB (CK-2) Total Protein Albumin Urine Appearance Urine Protein Urine Blood Urine Bacteria Hyaline Casts Urine Mucus 01/12/18 01/12/18 01/13/18 17:57 20:03 06:47 RBC Hgb Hct RDW Lymphocytes # Lymphocytes # (Manual) Metamyelocytes # (Man) INR Sodium Carbon Dioxide BUN Creatinine Glucose POC Glucose (mg/dL) 112 H 175 H Hemoglobin A1c 7.7 H Calcium AST ALT Alkaline Phosphatase CK-MB (CK-2) Total Protein Albumin Urine Appearance Urine Protein Urine Blood Urine Bacteria Hyaline Casts Urine Mucus 01/13/18 01/13/18 01/13/18 06:54 06:54 17:19 RBC Hgb Hct RDW 16.1 H Lymphocytes # 0.5 L Lymphocytes # (Manual) Metamyelocytes # (Man) INR Sodium 135 L Carbon Dioxide BUN Creatinine Glucose 110 H POC Glucose (mg/dL) 138 H Hemoglobin A1c Calcium 8.0 L AST 51 H ALT 53 H Alkaline Phosphatase 230 H CK-MB (CK-2) Total Protein Albumin 2.8 L Urine Appearance Urine Protein Urine Blood Urine Bacteria Hyaline Casts Urine Mucus 01/13/18 01/14/18 01/14/18 20:18 07:01 07:01 RBC Hgb 11.3 L Hct RDW 16.1 H Lymphocytes # Lymphocytes # (Manual) 0.58 L Metamyelocytes # (Man) 0.06 H INR Sodium 136 L Carbon Dioxide BUN Creatinine Glucose POC Glucose (mg/dL) 139 H Hemoglobin A1c Calcium 8.2 L AST 48 H ALT Alkaline Phosphatase 253 H CK-MB (CK-2) Total Protein 6.1 L Albumin 2.6 L Urine Appearance Urine Protein Urine Blood Urine Bacteria Hyaline Casts Urine Mucus 01/14/18 01/14/18 01/14/18 11:24 17:11 20:15 RBC Hgb Hct RDW Lymphocytes # Lymphocytes # (Manual) Metamyelocytes # (Man) INR Sodium Carbon Dioxide BUN Creatinine Glucose POC Glucose (mg/dL) 54 L 201 H 194 H Hemoglobin A1c Calcium AST ALT Alkaline Phosphatase CK-MB (CK-2) Total Protein Albumin Urine Appearance Urine Protein Urine Blood Urine Bacteria Hyaline Casts Urine Mucus 01/15/18 01/15/18 01/15/18 06:43 06:43 06:55 RBC Hgb 10.4 L Hct 32.0 L RDW 16.5 H Lymphocytes # 0.7 L Lymphocytes # (Manual) Metamyelocytes # (Man) INR Sodium Carbon Dioxide BUN 24 H Creatinine 1.38 H Glucose POC Glucose (mg/dL) 101 H Hemoglobin A1c Calcium 8.1 L AST ALT Alkaline Phosphatase 274 H CK-MB (CK-2) Total Protein 5.7 L Albumin 2.5 L Urine Appearance Urine Protein Urine Blood Urine Bacteria Hyaline Casts Urine Mucus 01/15/18 01/15/18 01/15/18 11:14 17:20 20:25 RBC Hgb Hct RDW Lymphocytes # Lymphocytes # (Manual) Metamyelocytes # (Man) INR Sodium Carbon Dioxide BUN Creatinine Glucose POC Glucose (mg/dL) 135 H 186 H 244 H Hemoglobin A1c Calcium AST ALT Alkaline Phosphatase CK-MB (CK-2) Total Protein Albumin Urine Appearance Urine Protein Urine Blood Urine Bacteria Hyaline Casts Urine Mucus 01/16/18 01/16/18 01/16/18 03:13 03:30 03:30 RBC 3.68 L Hgb 9.9 L Hct 31.9 L RDW 16.5 H Lymphocytes # Lymphocytes # (Manual) Metamyelocytes # (Man) INR Sodium 135 L Carbon Dioxide 21 L BUN 35 H Creatinine 1.90 H Glucose 155 H POC Glucose (mg/dL) 171 H Hemoglobin A1c Calcium AST ALT Alkaline Phosphatase 235 H CK-MB (CK-2) Total Protein 5.9 L Albumin 2.6 L Urine Appearance Urine Protein Urine Blood Urine Bacteria Hyaline Casts Urine Mucus 01/16/18 01/16/18 01/16/18 03:30 07:01 10:42 RBC Hgb Hct RDW Lymphocytes # Lymphocytes # (Manual) Metamyelocytes # (Man) INR Sodium Carbon Dioxide BUN Creatinine Glucose POC Glucose (mg/dL) 151 H 148 H Hemoglobin A1c Calcium AST ALT Alkaline Phosphatase CK-MB (CK-2) 4.4 H* Total Protein Albumin Urine Appearance Urine Protein Urine Blood Urine Bacteria Hyaline Casts Urine Mucus - Diagnostic Findings Chest x-ray: image reviewed (Labs x-rays a medications are all reviewed.) Assessment and Plan Assessment: Assessment Hepatocellular carcinoma, recently started on chemotherapy in the form of Nexavar History of CHF History of diabetes mellitus History of hyperlipidemia History of hypertension Klebsiella urinary tract infection with sepsis/sepsis syndrome Restless leg syndrome Perihepatic abscess, status post fine-needle aspiration Septic shock Plan: Plan dated 01/16/2018 I confirmed with the patient that she is a no code. She does not want intubation or anything heroic measures. She does agree to medical treatments including antibiotics and so forth. The patient's currently not on any norepinephrine. We are going to check a cortisol level. After that son, we will give her 100 mg of hydrocortisone IV push see if that makes any difference in her blood pressure. In addition, we'll continue to watch her respiratory status carefully. She may benefit from BiPAP therapy. Additional recommendations and suggestions are forthcoming. Medications are reviewed. Time with Patient: Greater than 30
[2018-01-16 11:33] LABS: Band Neutrophils % 40 %; Eosinophils # (M) 0.85 k/uL (0-0.7); Lymphocytes # (M) 0.75 k/uL (1.0-4.8); Monocytes # (M) 0.19 k/uL (0-1.0); Neutrophils % (M) 43 %; Nucleated Red Blood Cells 0 /100 WBC (0-0); Total Cells Counted 200
[2018-01-16 11:35] LABS: Anisocytosis (M) Present; Poikilocytosis (M) Present
[2018-01-16 12:45] LABS: Glucose,Whole Blood 125 mg/dL (75-99)
--- NOTE | 2018-01-16 12:46 | P.PN ---
Subjective Patient went into septic shock last night requiring aggressive IV fluids resuscitation and vasopressors overnight. She remained awake and alert. She was transferred to the intensive care unit. Her kidney function got worse this morning with her creatinine being more elevated. There was no documented fevers. She is covered with broad spectrum antibiotic. Infectious disease. Objective - Vital Signs Vital signs: Vital Signs Temp 98.6 F 01/16/18 08:00 Pulse 99 01/16/18 11:08 Resp 16 01/16/18 09:53 BP 106/71 01/16/18 09:53 Pulse Ox 97 01/16/18 09:53 Intake & Output 01/15/18 01/16/18 01/16/18 18:59 06:59 18:59 Intake Total 800 588.251 Output Total 90 Balance 800 498.251 Intake: IV 300 Cefepime 2 gm In Sodium 100 Chloride 0.9% 50 ml @ 100 mls/hr IVPB Q12HR EMA Rx #:[id number] Sodium Chloride 0.9% 1, 200 000 ml @ 100 mls/hr IV . Q10H EMA Rx#:[id number] Intake, IV Titration 800 48.251 Amount Norepinephrin 4 mg-0.9% 48.251 Ns Pmx 4 mg In 250 ml @ Titrate IV .Q0M EMA Rx#: [id number] Sodium Chloride 0.9% 1, 800 000 ml @ 100 mls/hr IV . Q10H EMA Rx#:[id number] Oral 240 Output: Urine 90 Other: Voiding Method Bedside Commode Indwelling Catheter Indwelling Catheter # Voids 1 - Exam General: The patient is awake and alert, in no distress Eye: there is normal conjunctiva bilaterally. Neck: The neck is supple, there is no JVD. Cardiovascular: Normal S1-S2, no S3-S4, no murmurs. Respiratory: Lungs clear to auscultation bilaterally Gastrointestinal: Abdomen is soft, there is moderate tenderness to palpation worse in the right upper quadrant Musculoskeletal: There is no pedal edema. Neurological:. Speech is normal. Skin: Skin is warm and dry - Labs CBC & Chem 7: 01/16/18 03:30 01/16/18 03:30 Labs: Abnormal Lab Results - Last 24 Hours (Table) 01/15/18 01/15/18 01/16/18 Range/Units 17:20 20:25 03:13 RBC (3.80-5.40) m/uL Hgb (11.4-16.0) gm/dL Hct (34.0-46.0) % RDW (11.5-15.5) % Neutrophils # (Manual) (1.3-7.7) k/uL Lymphocytes # (Manual) (1.0-4.8) k/uL Eosinophils # (Manual) (0-0.7) k/uL Sodium (137-145) mmol/L Carbon Dioxide (22-30) mmol/L BUN (7-17) mg/dL Creatinine (0.52-1.04) mg/dL Glucose (74-99) mg/dL POC Glucose (mg/dL) 186 H 244 H 171 H (75-99) mg/dL Alkaline Phosphatase (38-126) U/L CK-MB (CK-2) (0.0-2.4) ng/mL Total Protein (6.3-8.2) g/dL Albumin (3.5-5.0) g/dL 01/16/18 01/16/18 01/16/18 Range/Units 03:30 03:30 03:30 RBC 3.68 L (3.80-5.40) m/uL Hgb 9.9 L (11.4-16.0) gm/dL Hct 31.9 L (34.0-46.0) % RDW 16.5 H (11.5-15.5) % Neutrophils # (Manual) 7.80 H (1.3-7.7) k/uL Lymphocytes # (Manual) 0.75 L (1.0-4.8) k/uL Eosinophils # (Manual) 0.85 H (0-0.7) k/uL Sodium 135 L (137-145) mmol/L Carbon Dioxide 21 L (22-30) mmol/L BUN 35 H (7-17) mg/dL Creatinine 1.90 H (0.52-1.04) mg/dL Glucose 155 H (74-99) mg/dL POC Glucose (mg/dL) (75-99) mg/dL Alkaline Phosphatase 235 H (38-126) U/L CK-MB (CK-2) 4.4 H* (0.0-2.4) ng/mL Total Protein 5.9 L (6.3-8.2) g/dL Albumin 2.6 L (3.5-5.0) g/dL 01/16/18 01/16/18 Range/Units 07:01 10:42 RBC (3.80-5.40) m/uL Hgb (11.4-16.0) gm/dL Hct (34.0-46.0) % RDW (11.5-15.5) % Neutrophils # (Manual) (1.3-7.7) k/uL Lymphocytes # (Manual) (1.0-4.8) k/uL Eosinophils # (Manual) (0-0.7) k/uL Sodium (137-145) mmol/L Carbon Dioxide (22-30) mmol/L BUN (7-17) mg/dL Creatinine (0.52-1.04) mg/dL Glucose (74-99) mg/dL POC Glucose (mg/dL) 151 H 148 H (75-99) mg/dL Alkaline Phosphatase (38-126) U/L CK-MB (CK-2) (0.0-2.4) ng/mL Total Protein (6.3-8.2) g/dL Albumin (3.5-5.0) g/dL Microbiology - Last 24 Hours (Table) 01/15/18 09:15 Blood Culture - Preliminary Blood No Growth after 24 hours 01/14/18 14:15 Gram Stain - Preliminary Abdomen Wound Culture - Preliminary 01/14/18 14:15 Gram Stain - Preliminary Aspirate Body Fluid Culture - Preliminary 01/11/18 18:07 Blood Culture - Preliminary Blood No Growth after 96 hours Assessment and Plan Assessment: 1. Severe sepsis with septic shock: Most likely source is underlying liver abscesses and underlying UTI. Patient was resuscitated with IV fluids. She required vasopressors overnight. Currently blood pressure is stable. 2. Uncomplicated urinary tract infection with culture growing cane pneumonia. Blood culture negative to date. 3. Metastatic liver cancer with questionable liver abscess. Patient was seen and evaluated by oncology, general surgery, and underwent a CT-guided biopsy awaiting pathology and culture results. She does not want to get Nexavar any more. 4. Essential hypertension: Blood pressure stable right now 5. Type 2 diabetes mellitus we will continue current insulin regimen plus sliding scale 6. DVT prophylaxis with subcu heparin Today, I reviewed her medication list and lab work results. Continue current regimen. Appreciate industry consultant's recommendations. Repeat lab work in the morning. Patient's remained critically ill. Her CODE STATUS was discussed with the head of strategy and she is DO NOT RESUSCITATE/DO NOT INTUBATE. She does not want any aggressive measures. We will continue supportive care. IV fluids and antibiotic. Appreciate industry consultant's recommendations.
[2018-01-16] MEDS ORDERED: FUROSEMIDE 10 MG/ML 2 ML VIAL IV ONE (13:18)
[2018-01-16] MEDS: MAGNESIUM OXIDE 400 MG TAB PO SCH (14:19)
[2018-01-16 18:02] LABS: Glucose,Whole Blood 189 mg/dL (75-99)
[2018-01-16 19:57] LABS: Glucose,Whole Blood 251 mg/dL (75-99)
[2018-01-16] MEDS: INSULIN DETEMIR 100 UNIT/ML 10 ML VIAL SQ SCH (20:07)
--- NOTE | 2018-01-16 22:20 | PN ---
PROGRESS NOTE DATE OF SERVICE: 01/16/2018 REASON FOR FOLLOWUP: Possible liver abscess. INTERVAL HISTORY: The patient is afebrile. She was noted to be hypotensive last night, for which the patient was transferred to the ICU. She also had a low-grade fever at that time. The patient responded to IV fluids and has been off the pressors. The patient denies having any chest pain or shortness of breath. Occasional cough. No worsening abdominal pain or any diarrhea. PHYSICAL EXAMINATION: Blood pressure is 118/62 with a pulse of 100, temperature of 98. She is 97% on room air. General description is an elderly female up in the bed in no distress. RESPIRATORY SYSTEM: Unlabored breathing with decreased breath sounds in the bases. No wheeze. HEART: S1, S2. Regular rate and rhythm. ABDOMEN: Soft. Mildly distended. No guarding or rigidity. LABS: Hemoglobin 9.9, white count 9.4, BUN of 35, creatinine 1.90. The CT-guided aspirate of the liver is so far negative. DIAGNOSTIC IMPRESSION AND PLAN: Patient admitted to hospital with a fever and concern about possible liver abscess, status post CT-guided drainage; however, the culture remains negative. The fever could have been related to her multiple She is empirically covered with cefepime and Flagyl. That will continue while waiting for the culture to finalize. Continue supportive care. MMODL / IJN: [id number] /
[2018-01-17] MEDS: SODIUM CHLORIDE 0.9% 1,000 ML IV SCH ×2 (01:00→16:15)
[2018-01-17 04:55] LABS: Anisocytosis Slight; Basophils % (A) 0 %; Eosinophils # (A) 0.4 k/uL (0-0.7); Eosinophils % (A) 5 %; HCT 31.9 % (34.0-46.0); HGB 10.2 gm/dL (11.4-16.0); Hypochromasia Moderate; Lymphocytes # (A) 0.6 k/uL (1.0-4.8); Lymphocytes % (A) 8 %; MCH 27.5 pg (25.0-35.0); MCV 85.8 fL (80.0-100.0); Mean Platelet Volume 7.8; Monocytes # (A) 0.3 k/uL (0-1.0); Monocytes % (A) 4 %; Neutrophils % (A) 80 %; Platelet Count 161 k/uL (150-450); Poikilocytosis Slight; RBC 3.72 m/uL (3.80-5.40); RDW 16.5 % (11.5-15.5); WBC 7.4 k/uL (3.8-10.6)
[2018-01-17 05:35] LABS: Albumin 2.5 g/dL (3.5-5.0); Calcium 8.2 mg/dL (8.4-10.2); Magnesium 2.1 mg/dL (1.6-2.3); Phosphorus 3.5 mg/dL (2.5-4.5); Potassium 4.8 mmol/L (3.5-5.1); Total Bilirubin 0.5 mg/dL (0.2-1.3)
[2018-01-17 07:07] LABS: Glucose,Whole Blood 145 mg/dL (75-99)
[2018-01-17] MEDS: IPRATROPIUM-ALBUTEROL 3 ML NEB INHALATION SCH ×4 (07:11→20:28)
[2018-01-17] MEDS: LACTOBACILLUS ACIDOPH & BULGAR 1 EACH PACKET PO SCH (08:09)
[2018-01-17] MEDS: HEPARIN SODIUM,PORCINE 5,000 UNIT/ML 1 ML VIAL SQ SCH ×2 (08:09→20:48)
[2018-01-17] MEDS: PANTOPRAZOLE 40 MG TABLET PO SCH (08:09)
[2018-01-17] MEDS: metroNIDAZOLE 500 MG TAB PO SCH ×3 (08:09→20:49)
[2018-01-17] MEDS: CEFEPIME 2 GM in SODIUM CHLORIDE 0.9% 50 ML IVPB SCH ×2 (08:09→20:49)
[2018-01-17] MEDS: INSULIN ASPART 100 UNIT/ML 1 ML 10 ML VIAL SQ SCH ×4 (08:10→20:53)
[2018-01-17] MEDS: MAGNESIUM OXIDE 400 MG TAB PO SCH (08:10)
[2018-01-17] MEDS: DOCUSATE 100 MG CAP PO SCH (08:10)
[2018-01-17] MEDS: POTASSIUM CHLORIDE ER 20 MEQ TAB.ER PO SCH ×2 (08:12→20:49)
[2018-01-17] MEDS ORDERED: FUROSEMIDE 10 MG/ML 4 ML VIAL IV STA (08:17)
--- NOTE | 2018-01-17 09:03 | XR ---
EXAMINATION TYPE: XR chest 1V portable DATE OF EXAM: 01/17/2018 COMPARISON: Prior chest x-ray 01/16/2018 HISTORY: Shortness of breath TECHNIQUE: Single frontal view of the chest is obtained. FINDINGS: Patient is rotated. There are overlying cardiac leads. Heart remains enlarged. Interstitiu m is increased. Bandlike areas of increased attenuation may reflect atelectasis at the lung bases. No pneumothorax or sizable effusion. IMPRESSION: Correlate for congestive heart failure, interstitial lung disease, there is basilar atel ectasis, stable borderline cardiomegaly
[2018-01-17 11:54] LABS: Glucose,Whole Blood 165 mg/dL (75-99)
--- NOTE | 2018-01-17 12:34 | P.PN ---
Subjective Progress Note Date: 01/17/18 This is a 72-year-old female with past medical history noted below significant for metastatic liver cancer who was recently started on Nexavar by her oncologist. Patient said that she has not been feeling well for the past couple of days. She was having low-grade fever at home. She was evaluated by her oncologist in the office and was given some IV fluid and was instructed to go to the emergency room if her fever persists. Patient said that she had a fever of 102.0 at home. She was having chills as well. She denies any flulike symptoms. No cough or shortness of breath. She reported having some burning with her urine but no significant increase in urinary frequency. No abdominal pain. She is also complaining of diarrhea with loose stool up to 4 times per day. She was evaluated in the emergency room and was found to be in severe sepsis without septic shock. She is currently admitted to the hospital for further evaluation. She is feeling a lot better this morning. 01/14/2018 patient is scheduled for CT-guided biopsy of liver abscess. Infectious disease, surgical service and oncology are following. Oncology is also ordered a computed tomography scan of the chest and venous Dopplers of lower extremity. She also is being treated for UTI urine culture growing Klebsiella pneumoniae. Still having low-grade temps for 100.6 heart rate 112. Also hypoglycemic blood sugar in the 50s likely related to not eating for her procedure. Glipizide discontinued. 01/15/2018 patient sitting at the bedside chair comfortably. Denies any pain. CTA was negative for PE Dopplers are negative for DVT. She is still requiring oxygen. About 4 L nasal cannula. Patient reports just recently at home she was placed on oxygen and usually is around 3 L. patient reporting that she still having diarrhea. Stool for C. diff has been ordered. She's also had worsening in creatinine. Creatinine is up to 1.38. Lasix discontinued. Fluids at been increased to 100 mL an hour. Patient also had a nodular temp this morning of 101.6 and has been having evidence of tachycardia. 01/17/2018 patient to go into septic shock on 01/16/2018. She required transfer to the ICU placed on IV fluids and vasopressors. She's been off of the vasopressors and blood pressure has improved. She then became fluid overloaded and required 2 doses of IV Lasix. Patient's cry sitting up in bed. She has no new complaints. Reports improvement in her breathing. Denies any chest pain. Denies any nausea or vomiting. Reports having bowel movements. Reports diarrhea improving. Denies any chest pain or shortness of breath. Patient also given a dose of IV hydrocortisone. Cortisol level within normal range at 29. Liver aspirate shows necrotic cellular material and debris, nondiagnostic Objective - Vital Signs Vital signs: Vital Signs Temp 98 F 01/17/18 08:00 Pulse 108 H 01/17/18 11:30 Resp 27 H 01/17/18 11:00 BP 136/67 01/17/18 11:00 Pulse Ox 96 01/17/18 11:00 Intake & Output 01/16/18 01/17/18 01/17/18 18:59 06:59 18:59 Intake Total 8143.039 6416 30 Output Total 880 540 675 Balance 708.251 710 -645 Weight 87.09 kg 105 kg Intake: IV 1200 1250 30 Cefepime 2 gm In Sodium 100 50 Chloride 0.9% 50 ml @ 100 mls/hr IVPB Q12HR EMA Rx #:[id number] Sodium Chloride 0.9% 1, 1100 1200 30 000 ml @ 100 mls/hr IV . Q10H EMA Rx#:[id number] Intake, IV Titration 48.251 Amount Norepinephrin 4 mg-0.9% 48.251 Ns Pmx 4 mg In 250 ml @ Titrate IV .Q0M EMA Rx#: [id number] Oral 240 Other 100 Output: Urine 880 540 675 Other: Voiding Method Indwelling Catheter Indwelling Catheter Indwelling Catheter - Exam Head normocephalic Neck supple Lungs crackles at bases Heart regular rate and rhythm S1-S2, no rub or gallop Abdomen is soft nontender nondistended positive bowel sounds no hepatosplenomegaly. Bandage noted on the right upper quadrant from CT-guided drainage of abscess Extremities no edema Neuro alert and orientated to 3 - Labs CBC & Chem 7: 01/17/18 04:09 01/17/18 04:09 Labs: Abnormal Lab Results - Last 24 Hours (Table) 01/16/18 01/16/18 01/16/18 Range/Units 12:44 18:01 19:55 RBC (3.80-5.40) m/uL Hgb (11.4-16.0) gm/dL Hct (34.0-46.0) % RDW (11.5-15.5) % Lymphocytes # (1.0-4.8) k/uL Chloride (98-107) mmol/L Carbon Dioxide (22-30) mmol/L BUN (7-17) mg/dL Creatinine (0.52-1.04) mg/dL Glucose (74-99) mg/dL POC Glucose (mg/dL) 125 H 189 H 251 H (75-99) mg/dL Calcium (8.4-10.2) mg/dL Alkaline Phosphatase (38-126) U/L Total Protein (6.3-8.2) g/dL Albumin (3.5-5.0) g/dL 01/17/18 01/17/18 01/17/18 Range/Units 04:09 04:09 07:05 RBC 3.72 L (3.80-5.40) m/uL Hgb 10.2 L (11.4-16.0) gm/dL Hct 31.9 L (34.0-46.0) % RDW 16.5 H (11.5-15.5) % Lymphocytes # 0.6 L (1.0-4.8) k/uL Chloride 111 H (98-107) mmol/L Carbon Dioxide 17 L (22-30) mmol/L BUN 40 H (7-17) mg/dL Creatinine 1.40 H (0.52-1.04) mg/dL Glucose 183 H (74-99) mg/dL POC Glucose (mg/dL) 145 H (75-99) mg/dL Calcium 8.2 L (8.4-10.2) mg/dL Alkaline Phosphatase 276 H (38-126) U/L Total Protein 6.0 L (6.3-8.2) g/dL Albumin 2.5 L (3.5-5.0) g/dL 01/17/18 Range/Units 11:48 RBC (3.80-5.40) m/uL Hgb (11.4-16.0) gm/dL Hct (34.0-46.0) % RDW (11.5-15.5) % Lymphocytes # (1.0-4.8) k/uL Chloride (98-107) mmol/L Carbon Dioxide (22-30) mmol/L BUN (7-17) mg/dL Creatinine (0.52-1.04) mg/dL Glucose (74-99) mg/dL POC Glucose (mg/dL) 165 H (75-99) mg/dL Calcium (8.4-10.2) mg/dL Alkaline Phosphatase (38-126) U/L Total Protein (6.3-8.2) g/dL Albumin (3.5-5.0) g/dL Microbiology - Last 24 Hours (Table) 01/15/18 09:15 Blood Culture - Preliminary Blood No Growth after 48 hours 01/14/18 14:15 Anaerobic Culture - Preliminary Abdomen 01/14/18 14:15 Anaerobic Culture - Preliminary Aspirate 01/11/18 18:07 Blood Culture - Preliminary Blood No Growth after 120 hours 01/14/18 14:15 Gram Stain - Preliminary Aspirate Body Fluid Culture - Preliminary 01/14/18 14:15 Gram Stain - Final Abdomen Wound Culture - Final Assessment and Plan Assessment: 1. Severe sepsis without septic shock present on admission: Likely secondary to necrotic tumor or liver abscess. Cultures are all negative so far. Case discussed with infectious disease. Possibly patient's fever and symptoms are related to a necrotic tumor computed tomography scan of the abdomen suggestive for possible tumor necrosis or hepatic abscess involving some of the liver lesions. 2. liver abscess status post CT-guided drainage. Cultures are negative so far Patient currently on cefepime. Infectious disease following 3. urinary tract infection: Urine culture growing Klebsiella pneumoniae. Infectious disease following. Continue cefepime 4. Metastatic liver cancer recently started on Nexavar at home. Seen and evaluated by oncology. Appreciate recommendations. Plan is to wean her off Nexavar. 4. Essential hypertension: Blood pressure has been on the lower side. We'll place parameters around the lisinopril also note that Lasix discontinued today due to elevated 5. Type 2 diabetes mellitus: No further episodes of hypoglycemia. Glipizide discontinued. Continue with the sliding scale coverage and her current Lantus dose 6. Acute kidney injury: Creatinine improving down from 1.9-1.4. Possibly medication induced or due to IV contrast from the CAT scan. Lasix discontinued. Vancomycin discontinued yesterday. Patient is an placed on IV fluids normal saline 100 mL hours. Patient also reporting diarrhea. Stool for C. diff negative on January 12. Start Lomotil 7. Fluid overload. Patient received 2 doses IV Lasix DVT prophylaxis with subcu heparin I performed an examination of the patient and discussed their management with the physician Skin Fitter. I have reviewed the Physician Skin Fitter's notes and agree with the documented findings and plan of care
--- NOTE | 2018-01-17 13:01 | P.PN ---
Subjective Progress Note Date: 01/17/18 Principal diagnosis: Acute septic shock secondary to her hepatic abscess and Klebsiella urinary tract infection. Consult dated 01/16/2018 This is a 72-year-old female who has a history of hepatocellular carcinoma. She was recently started on chemotherapy by the oncologist. The patient had not been feeling well for a couple days prior to admission and had fever at home. The patient was seen in the oncology office and sent to the hospital for evaluation. In the ER the patient was found to have a temperature of 102 and she was admitted for sepsis/sepsis syndrome. She was found have urinary tract infection secondary to Klebsiella and more recently was found have a abscess around the liver. This was sampled. Scanning of the liver showed multiple lesions consistent with her underlying hepatocellular carcinoma. Last night, she became more hypotensive and had some respiratory distress and I was called. The patient was moved to the ICU this morning. Currently, she is on O2 at 5 L nasal cannula and receiving a saline IV 100 mL an hour. Norepinephrine is on hold. She received quite a bit of fluid last night. The patient is a DO NOT RESUSCITATE. I confirmed that with her just recently. She would like all medical therapies offered her but no intubation mechanical ventilation and nothing aerobic. She understands that she has a severe and terminal issue. She does not want any additional chemotherapy or treatments for her liver cancer. Progress note dated 01/17/2018 The patient is seen again today in the intensive care unit. She is awake and alert in no acute distress. She has been hemodynamically stable. Not on any pressors. She's been afebrile. She is currently on cefepime and Flagyl. Aspirate of the abscess does not reveal any positive cultures thus far. Her urine was positive for Klebsiella pneumoniae. Follow-up blood culture showing no growth to date. White count 7.4. Hemoglobin 10.2. White count 161,000. Creatinine 1.40. Objective - Vital Signs Vital signs: Vital Signs Temp 98 F 01/17/18 08:00 Pulse 108 H 01/17/18 11:30 Resp 27 H 01/17/18 11:00 BP 136/67 01/17/18 11:00 Pulse Ox 96 01/17/18 11:00 Intake & Output 01/16/18 01/17/18 01/17/18 18:59 06:59 18:59 Intake Total 6896.712 6423 30 Output Total 880 540 675 Balance 708.251 710 -645 Weight 87.09 kg 105 kg Intake: IV 1200 1250 30 Cefepime 2 gm In Sodium 100 50 Chloride 0.9% 50 ml @ 100 mls/hr IVPB Q12HR EMA Rx #:[id number] Sodium Chloride 0.9% 1, 1100 1200 30 000 ml @ 100 mls/hr IV . Q10H EMA Rx#:[id number] Intake, IV Titration 48.251 Amount Norepinephrin 4 mg-0.9% 48.251 Ns Pmx 4 mg In 250 ml @ Titrate IV .Q0M EMA Rx#: [id number] Oral 240 Other 100 Output: Urine 880 540 675 Other: Voiding Method Indwelling Catheter Indwelling Catheter Indwelling Catheter - Exam No acute distress, oriented 3. The patient has mild tachypnea and dyspnea. HEENT examination is grossly unremarkable. Mucous membranes are moist. No oral lesions. Neck supple. Full range of motion. No adenopathy thyromegaly or neck vein distention. Cardiovascular examination reveals regular rhythm rate. S1-S2 normal. No S3 or S4. No discernible murmur noted. Lungs reveal a few scattered crackles. Breath sounds are equal. No rhonchi. Abdomen soft bowel sounds are heard. No masses or tenderness. Extremities are intact. No cyanosis or clubbing. Mild edema. Skin is without rash or lesion. Neurologic examination is brief but nonfocal. - Labs CBC & Chem 7: 01/17/18 04:09 01/17/18 04:09 Labs: Abnormal Lab Results - Last 24 Hours (Table) 01/16/18 01/16/18 01/17/18 Range/Units 18:01 19:55 04:09 RBC 3.72 L (3.80-5.40) m/uL Hgb 10.2 L (11.4-16.0) gm/dL Hct 31.9 L (34.0-46.0) % RDW 16.5 H (11.5-15.5) % Lymphocytes # 0.6 L (1.0-4.8) k/uL Chloride (98-107) mmol/L Carbon Dioxide (22-30) mmol/L BUN (7-17) mg/dL Creatinine (0.52-1.04) mg/dL Glucose (74-99) mg/dL POC Glucose (mg/dL) 189 H 251 H (75-99) mg/dL Calcium (8.4-10.2) mg/dL Alkaline Phosphatase (38-126) U/L Total Protein (6.3-8.2) g/dL Albumin (3.5-5.0) g/dL 01/17/18 01/17/18 01/17/18 Range/Units 04:09 07:05 11:48 RBC (3.80-5.40) m/uL Hgb (11.4-16.0) gm/dL Hct (34.0-46.0) % RDW (11.5-15.5) % Lymphocytes # (1.0-4.8) k/uL Chloride 111 H (98-107) mmol/L Carbon Dioxide 17 L (22-30) mmol/L BUN 40 H (7-17) mg/dL Creatinine 1.40 H (0.52-1.04) mg/dL Glucose 183 H (74-99) mg/dL POC Glucose (mg/dL) 145 H 165 H (75-99) mg/dL Calcium 8.2 L (8.4-10.2) mg/dL Alkaline Phosphatase 276 H (38-126) U/L Total Protein 6.0 L (6.3-8.2) g/dL Albumin 2.5 L (3.5-5.0) g/dL Microbiology - Last 24 Hours (Table) 01/15/18 09:15 Blood Culture - Preliminary Blood No Growth after 48 hours 01/14/18 14:15 Anaerobic Culture - Preliminary Abdomen 01/14/18 14:15 Anaerobic Culture - Preliminary Aspirate 01/11/18 18:07 Blood Culture - Preliminary Blood No Growth after 120 hours 01/14/18 14:15 Gram Stain - Preliminary Aspirate Body Fluid Culture - Preliminary 01/14/18 14:15 Gram Stain - Final Abdomen Wound Culture - Final Assessment and Plan Assessment: Assessment Hepatocellular carcinoma, recently started on chemotherapy in the form of Nexavar History of CHF History of diabetes mellitus History of hyperlipidemia History of hypertension Klebsiella urinary tract infection with sepsis/sepsis syndrome Restless leg syndrome Perihepatic abscess, status post fine-needle aspiration Septic shock Plan: The patient was seen and evaluated by Dr. Marcial. Her chest x-ray and labs were reviewed. We'll go ahead and give 1 dose of Lasix 40 mg IV push 1. Continue 0.9 normal saline at KVO. We'll add steroids and Pulmicort inhalations. She could be transferred out of the intensive care unit today. She does remain a DO NOT RESUSCITATE/DO NOT INTUBATE CODE STATUS. We'll continue to follow. I, the cosigning physician, performed a history & physical examination of the patient. Lungs sounds have faint end expiratory wheeze bilaterally, crackles in the posterior bases. Maintaining good O2 saturations in the 90s on 3 L/m per nasal cannula.. I discussed the assessment and plan of care with my nurse practitioner, Precious Singleton. I attest to the above note as dictated by her.
--- NOTE | 2018-01-17 14:18 | P.PN ---
Subjective Progress Note Date: 01/16/18 72-year-old seen evaluated. In the ICU. Patient went into septic shock requiring aggressive IV fluid resuscitation and pressor support. Patient is status post by interventional radiology CT-guided aspiration for an abdominal abscess. Surgical eval was requested by the attending there is no evidence of an acute surgical abdomen at this time Objective - Vital Signs Vital signs: Vital Signs Temp 97.6 F 01/17/18 12:00 Pulse 100 01/17/18 13:00 Resp 19 01/17/18 13:00 BP 136/73 01/17/18 13:00 Pulse Ox 95 01/17/18 13:00 Intake & Output 01/16/18 01/17/18 01/17/18 18:59 06:59 18:59 Intake Total 6535.259 5914 60 Output Total 683 039 3903 Balance 708.251 710 -1215 Weight 87.09 kg 105 kg Intake: IV 1200 1250 60 Cefepime 2 gm In Sodium 100 50 Chloride 0.9% 50 ml @ 100 mls/hr IVPB Q12HR EMA Rx #:[id number] Sodium Chloride 0.9% 1, 1100 1200 60 000 ml @ 10 mls/hr IV . Q24H EMA Rx#:[id number] Intake, IV Titration 48.251 Amount Norepinephrin 4 mg-0.9% 48.251 Ns Pmx 4 mg In 250 ml @ Titrate IV .Q0M EMA Rx#: [id number] Oral 240 Other 100 Output: Urine 788 593 3595 Other: Voiding Method Indwelling Catheter Indwelling Catheter Indwelling Catheter - Exam Exam Abdomen hypoactive bowel tones noted. No palpable tenderness nondistended no reports of nausea vomiting - Labs CBC & Chem 7: 01/17/18 04:09 01/17/18 04:09 Labs: Abnormal Lab Results - Last 24 Hours (Table) 01/16/18 01/16/18 01/17/18 Range/Units 18:01 19:55 04:09 RBC 3.72 L (3.80-5.40) m/uL Hgb 10.2 L (11.4-16.0) gm/dL Hct 31.9 L (34.0-46.0) % RDW 16.5 H (11.5-15.5) % Lymphocytes # 0.6 L (1.0-4.8) k/uL Chloride (98-107) mmol/L Carbon Dioxide (22-30) mmol/L BUN (7-17) mg/dL Creatinine (0.52-1.04) mg/dL Glucose (74-99) mg/dL POC Glucose (mg/dL) 189 H 251 H (75-99) mg/dL Calcium (8.4-10.2) mg/dL Alkaline Phosphatase (38-126) U/L Total Protein (6.3-8.2) g/dL Albumin (3.5-5.0) g/dL 01/17/18 01/17/18 01/17/18 Range/Units 04:09 07:05 11:48 RBC (3.80-5.40) m/uL Hgb (11.4-16.0) gm/dL Hct (34.0-46.0) % RDW (11.5-15.5) % Lymphocytes # (1.0-4.8) k/uL Chloride 111 H (98-107) mmol/L Carbon Dioxide 17 L (22-30) mmol/L BUN 40 H (7-17) mg/dL Creatinine 1.40 H (0.52-1.04) mg/dL Glucose 183 H (74-99) mg/dL POC Glucose (mg/dL) 145 H 165 H (75-99) mg/dL Calcium 8.2 L (8.4-10.2) mg/dL Alkaline Phosphatase 276 H (38-126) U/L Total Protein 6.0 L (6.3-8.2) g/dL Albumin 2.5 L (3.5-5.0) g/dL Microbiology - Last 24 Hours (Table) 01/15/18 09:15 Blood Culture - Preliminary Blood No Growth after 48 hours 01/14/18 14:15 Anaerobic Culture - Preliminary Abdomen 01/14/18 14:15 Anaerobic Culture - Preliminary Aspirate 01/11/18 18:07 Blood Culture - Preliminary Blood No Growth after 120 hours 01/14/18 14:15 Gram Stain - Preliminary Aspirate Body Fluid Culture - Preliminary 01/14/18 14:15 Gram Stain - Final Abdomen Wound Culture - Final Assessment and Plan Assessment: Impression Present on admission febrile temp of 104 after starting nexavar A recent liver lesion biopsy complicated by severe artery bleeding requiring embolization November done at [facility] CAT scan abdomen and pelvis this admission suspicious findings of hepatic abscess Metastatic liver cancer Hypertension essential Status post CT-guided aspiration and drainage of a pelvic abscess done January 14 Perihepatic abscess status post fine-needle aspiration Septic shock suspect due to UTI Klebsiella Plan No evidence of an acute surgical abdomen at this time Continue ICU management per the editor continuity and script We'll sign off no further surgical recommendations at this time will follow as needed note dictated for Dr. diaz The above impression and plan of care have been discussed and directed by signing physician. Bella Hartley nurse practitioner acting as scribe for signing physician.
[2018-01-17] MEDS: methylPREDNISolone SOD SUCCI 40 MG/ML 1 ML VIAL IV SCH ×2 (16:16→23:26)
[2018-01-17 17:13] LABS: Glucose,Whole Blood 144 mg/dL (75-99)
[2018-01-17] MEDS: BUDESONIDE 1 MG/2 ML NEBU INHALATION SCH (20:28)
[2018-01-17 20:53] LABS: Glucose,Whole Blood 179 mg/dL (75-99)
[2018-01-17] MEDS: INSULIN DETEMIR 100 UNIT/ML 10 ML VIAL SQ SCH (21:40)
--- NOTE | 2018-01-17 22:43 | PN ---
PROGRESS NOTE DATE OF SERVICE: 01/17/2018. REASON FOR FOLLOWUP: Fever and question of possible liver abscess. INTERVAL HISTORY: The patient's overall fever pattern has improved. She is breathing comfortably. Denies having any chest pain, shortness of breath. Occasional cough. Abdominal pain has improved. No nausea, vomiting or any diarrhea. EXAMINATION: Blood pressure 143/70 with a pulse of 100, temperature 98.8. She is 97% on room air. General description is an elderly female, lying in bed in no distress. RESPIRATORY SYSTEM: Unlabored breathing. Clear to auscultation anteriorly. HEART: S1, S2. Regular rate and rhythm. ABDOMEN: Soft. No tenderness. LABS: Hemoglobin 10.2, white count 10.4 with a BUN of 40, creatinine 1.40. The liver aspirate is so far negative. DIAGNOSTIC IMPRESSION AND PLAN: Patient admitted to the hospital with a fever with a question of possible liver abscess versus necrotic tumor. The liver aspirate culture remains to be negative. Currently on cefepime and Flagyl which can be transitioned to short course of oral antibiotic on discharge. Continue supportive care. MMODL / IJN: [id number] /
[2018-01-18] MEDS: MORPHINE ORAL SOLN 10 MG/5 ML CUP PO PRN (05:14)
[2018-01-18 06:33] VITALS: BP 140/83; RESP 20; TEMP 97.8
[2018-01-18 07:03] LABS: Glucose,Whole Blood 192 mg/dL (75-99)
[2018-01-18] MEDS: IPRATROPIUM-ALBUTEROL 3 ML NEB INHALATION SCH ×2 (07:26→11:13)
[2018-01-18] MEDS: BUDESONIDE 1 MG/2 ML NEBU INHALATION SCH (07:26)
[2018-01-18 07:38] LABS: Anisocytosis Slight; Basophils % (A) 1 %; Eosinophils # (A) 0.2 k/uL (0-0.7); Eosinophils % (A) 3 %; HCT 34.8 % (34.0-46.0); HGB 11.2 gm/dL (11.4-16.0); Hypochromasia Moderate; Lymphocytes # (A) 0.5 k/uL (1.0-4.8); Lymphocytes % (A) 7 %; MCH 27.7 pg (25.0-35.0); MCHC 32.3 g/dL (31.0-37.0); MCV 85.8 fL (80.0-100.0); Mean Platelet Volume 7.8; Monocytes # (A) 0.3 k/uL (0-1.0); Monocytes % (A) 4 %; Neutrophils # (A) 5.5 k/uL (1.3-7.7); Neutrophils % (A) 82 %; Platelet Count 215 k/uL (150-450); Poikilocytosis Slight; RBC 4.06 m/uL (3.80-5.40); RDW 16.5 % (11.5-15.5); WBC 6.8 k/uL (3.8-10.6)
[2018-01-18] MEDS: PANTOPRAZOLE 40 MG TABLET PO SCH (07:46)
[2018-01-18] MEDS: INSULIN ASPART 100 UNIT/ML 1 ML 10 ML VIAL SQ SCH ×2 (07:46→13:15)
[2018-01-18] MEDS: CEFEPIME 2 GM in SODIUM CHLORIDE 0.9% 50 ML IVPB SCH (07:46)
[2018-01-18] MEDS: LACTOBACILLUS ACIDOPH & BULGAR 1 EACH PACKET PO SCH (07:47)
[2018-01-18] MEDS: HEPARIN SODIUM,PORCINE 5,000 UNIT/ML 1 ML VIAL SQ SCH (07:47)
[2018-01-18] MEDS: methylPREDNISolone SOD SUCCI 40 MG/ML 1 ML VIAL IV SCH (07:47)
[2018-01-18] MEDS: POTASSIUM CHLORIDE ER 20 MEQ TAB.ER PO SCH (07:47)
[2018-01-18] MEDS: metroNIDAZOLE 500 MG TAB PO SCH (07:47)
[2018-01-18] MEDS: DOCUSATE 100 MG CAP PO SCH (07:48)
[2018-01-18 07:54] LABS: Albumin 2.8 g/dL (3.5-5.0); Calcium 8.8 mg/dL (8.4-10.2); Potassium 4.6 mmol/L (3.5-5.1); Total Bilirubin 0.7 mg/dL (0.2-1.3); Total Protein 6.4 g/dL (6.3-8.2)
[2018-01-18] MEDS: SODIUM CHLORIDE 0.9% 1,000 ML IV SCH (09:04)
[2018-01-18 11:44] VITALS: PULSE 95
[2018-01-18 12:06] LABS: Glucose,Whole Blood 212 mg/dL (75-99)
--- NOTE | 2018-01-18 12:10 | P.PN ---
Subjective Progress Note Date: 01/18/18 Principal diagnosis: Acute septic shock secondary to hepatic abscess and Klebsiella urinary tract infection Consult dated 01/16/2018 This is a 72-year-old female who has a history of hepatocellular carcinoma. She was recently started on chemotherapy by the oncologist. The patient had not been feeling well for a couple days prior to admission and had fever at home. The patient was seen in the oncology office and sent to the hospital for evaluation. In the ER the patient was found to have a temperature of 102 and she was admitted for sepsis/sepsis syndrome. She was found have urinary tract infection secondary to Klebsiella and more recently was found have a abscess around the liver. This was sampled. Scanning of the liver showed multiple lesions consistent with her underlying hepatocellular carcinoma. Last night, she became more hypotensive and had some respiratory distress and I was called. The patient was moved to the ICU this morning. Currently, she is on O2 at 5 L nasal cannula and receiving a saline IV 100 mL an hour. Norepinephrine is on hold. She received quite a bit of fluid last night. The patient is a DO NOT RESUSCITATE. I confirmed that with her just recently. She would like all medical therapies offered her but no intubation mechanical ventilation and nothing aerobic. She understands that she has a severe and terminal issue. She does not want any additional chemotherapy or treatments for her liver cancer. Progress note dated 01/17/2018 The patient is seen again today in the intensive care unit. She is awake and alert in no acute distress. She has been hemodynamically stable. Not on any pressors. She's been afebrile. She is currently on cefepime and Flagyl. Aspirate of the abscess does not reveal any positive cultures thus far. Her urine was positive for Klebsiella pneumoniae. Follow-up blood culture showing no growth to date. White count 7.4. Hemoglobin 10.2. White count 161,000. Creatinine 1.40. On 01/18/2018 patient is seen in follow-up on medical surgical floor. He sitting up in the chair, denies any acute distress. Denies any dyspnea, wheezing, chest congestion or sputum production. She has been ambulating to the bathroom, unassisted, tolerating activity well. FiO2 is down to 3 L per nasal cannula with pulse ox of 94%. She is afebrile, hemodynamically stable. Urine culture from 01/11/2018 was positive for Klebsiella pneumoniae, patient is currently on cefepime and Flagyl, sensitivity screen showed only resistance to ampicillin, otherwise the organism was pansensitive. Follow-up blood cultures and liver abscess cultures were negative. Patient is stable from pulmonary standpoint Objective - Vital Signs Vital signs: Vital Signs Temp 97.8 F 01/18/18 06:32 Pulse 94 01/18/18 11:13 Resp 20 01/18/18 06:32 BP 140/83 01/18/18 06:32 Pulse Ox 94 L 01/18/18 06:32 Intake & Output 01/17/18 01/18/18 01/18/18 18:59 06:59 18:59 Intake Total 60 50 Output Total 1276 Balance -1216 50 Intake: IV 60 50 Cefepime 2 gm In Sodium 50 Chloride 0.9% 50 ml @ 100 mls/hr IVPB Q12HR EMA Rx #:[id number] Sodium Chloride 0.9% 1, 60 000 ml @ 10 mls/hr IV . Q24H EMA Rx#:[id number] Output: Urine 1276 Other: Voiding Method Toilet # Voids 3 - Exam GENERAL EXAM: Alert, pleasant 72-year-old white female comfortable in no apparent distress. HEAD: Normocephalic/atraumatic. EYES: Normal reaction of pupils, equal size. Conjunctiva pink, sclera white. NOSE: Clear with pink turbinates. THROAT: No erythema or exudates. NECK: No masses, no JVD, no thyroid enlargement, no adenopathy. CHEST: No chest wall deformity. Symmetrical expansion. LUNGS: Equal air entry with a few bibasilar rales, but no wheeze, rhonchi or dullness. CVS: Regular rate and rhythm, normal S1 and S2, no gallops, no murmurs, no rubs ABDOMEN: Soft, nontender. No hepatosplenomegaly, normal bowel sounds, no guarding or rigidity. EXTREMITIES: No clubbing, no edema, no cyanosis, 2+ pulses and upper and lower extremities. MUSCULOSKELETAL: Muscle strength and tone normal. SPINE: No scoliosis or deformity SKIN: No rashes CENTRAL NERVOUS SYSTEM: Alert and oriented -3. No focal deficits, tone is normal in all 4 extremities. PSYCHIATRIC: Alert and oriented -3. Appropriate affect. Intact judgment and insight. - Labs CBC & Chem 7: 01/18/18 07:11 01/18/18 07:11 Labs: Abnormal Lab Results - Last 24 Hours (Table) 01/17/18 01/17/18 01/17/18 Range/Units 11:48 17:09 20:51 Hgb (11.4-16.0) gm/dL RDW (11.5-15.5) % Lymphocytes # (1.0-4.8) k/uL Chloride (98-107) mmol/L Carbon Dioxide (22-30) mmol/L BUN (7-17) mg/dL Glucose (74-99) mg/dL POC Glucose (mg/dL) 165 H 144 H 179 H (75-99) mg/dL Alkaline Phosphatase (38-126) U/L Albumin (3.5-5.0) g/dL 01/18/18 01/18/18 01/18/18 Range/Units 06:50 07:11 07:11 Hgb 11.2 L (11.4-16.0) gm/dL RDW 16.5 H (11.5-15.5) % Lymphocytes # 0.5 L (1.0-4.8) k/uL Chloride 112 H (98-107) mmol/L Carbon Dioxide 19 L (22-30) mmol/L BUN 36 H (7-17) mg/dL Glucose 189 H (74-99) mg/dL POC Glucose (mg/dL) 192 H (75-99) mg/dL Alkaline Phosphatase 411 H (38-126) U/L Albumin 2.8 L (3.5-5.0) g/dL Microbiology - Last 24 Hours (Table) 01/15/18 09:15 Blood Culture - Preliminary Blood No Growth after 72 hours 01/11/18 18:07 Blood Culture - Final Blood No Growth after 144 hours 01/14/18 14:15 Gram Stain - Preliminary Aspirate Body Fluid Culture - Preliminary Assessment and Plan Plan: Assessment: Hepatocellular carcinoma, recently started on chemotherapy in the form of Nexavar History of CHF History of diabetes mellitus History of hyperlipidemia History of hypertension Klebsiella urinary tract infection with sepsis/sepsis syndrome Restless leg syndrome Perihepatic abscess, status post fine-needle aspiration Septic shock Plan: Patient is stable from pulmonary/critical care standpoint. Continue weaning FiO2, continue encouraging ambulation, and incentive spirometry. No acute distress, no active complaints, diarrhea is subsiding. Antibiotic coverage per ID service, follow-up with cultures remain negative, liver abscess cultures remain negative. From pulmonary standpoint patient is stable for discharge today. We will sign off at this time and follow on as-needed basis. Thank you for this consultation I performed a history & physical examination of the patient and discussed their management with my nurse practitioner, Heidi Fagan. I reviewed the nurse practitioner's note and agree with the documented findings and plan of care. Lung sounds are clear. The findings and the impression was discussed with the patient. I attest to the documentation by the nurse practitioner. Time with Patient: Less than 30
[2018-01-18] MEDS: MAGNESIUM OXIDE 400 MG TAB PO SCH (13:15)
--- NOTE | 2018-01-18 14:02 | PN ---
PROGRESS NOTE DATE OF SERVICE: 01/18/2018 REASON FOR FOLLOWUP: Question of liver abscess and UTI. INTERVAL HISTORY: The patient is afebrile. She is currently breathing comfortably. Denies having significant chest pain. No cough. No abdominal pain. No nausea, vomiting, or any diarrhea. PHYSICAL EXAMINATION: Blood pressure 140/83 with a pulse of 96, temperature 97.8. She is 94% on 3 L nasal cannula. General description is an elderly female, up in the chair in no distress. RESPIRATORY SYSTEM: Unlabored breathing, clear to auscultation anteriorly. HEART: S1, S2. Regular rate and rhythm. ABDOMEN: Soft, no tenderness LABS: Hemoglobin 11.1, white count of 6.8. BUN of 36, creatinine 0.97. The liver aspirate culture has been negative. DIAGNOSTIC IMPRESSION AND PLAN: Patient admitted to the hospital with a fever with concern for possible liver abscess, could have been a necrotic tumor. As the culture has been negative, she did have a sputum culture positive for Klebsiella pneumonia some of this fever. Plan to finish therapy with oral Flagyl for about a week with close outpatient followup. MMODL / IJN: [id number] /
--- NOTE | 2018-01-18 14:03 | P.DS ---
Providers Date of admission: 01/11/18 20:01 Expected date of discharge: 01/18/18 Attending physician: Abdoulaye Bermudez Consults: 01/11/18 19:58 Consult Physician Stat Consulting Provider: Dariel Moran Consult Reason/Comments: Fever, Liver CA, UTI Do you want consulting provider notified?: Yes Consult Physician Stat Consulting Provider: Brianda Hinton Consult Reason/Comments: Fever, Liver Cancer patient Do you want consulting provider notified?: Yes 01/13/18 13:02 Consult Physician Routine Consulting Provider: Quinn Kunz Consult Reason/Comments: liver abscess Do you want consulting provider notified?: Yes 01/15/18 13:37 Consult Physician Routine Consulting Provider: Mp Marcial Consult Reason/Comments: hypoxia Do you want consulting provider notified?: Yes Primary care physician: Jamee Petit Hospital Course: Discharge diagnosis 1. Severe sepsis without septic shock present on admission: Likely secondary to necrotic tumor or liver abscess. Cultures are all negative so far. Case discussed with infectious disease. Possibly patient's fever and symptoms are related to a necrotic tumor computed tomography scan of the abdomen suggestive for possible tumor necrosis or hepatic abscess involving some of the liver lesions. Patient seen by infectious diseases recommending Cipro and Flagyl at discharge 2. liver abscess status post CT-guided drainage. Cultures are negative 3. urinary tract infection: Urine culture growing Klebsiella pneumoniae. Infectious disease following. Continue Cipro at discharge 4. Metastatic liver cancer recently started on Nexavar at home. Seen and evaluated by oncology. Appreciate recommendations. Plan is to wean her off Nexavar. 4. Essential hypertension: Blood pressure has been on the lower side. We'll place parameters around the lisinopril also note that Lasix discontinued today due to elevated 5. Type 2 diabetes mellitus: No further episodes of hypoglycemia. 6. Acute kidney injury: Likely related to patient's diarrhea, contrast from the CAT scan and Lasix. Acute kidney injury improved with IV fluids. Lasix was able to be resumed 7. Fluid overload. Patient received 2 doses IV Lasix. Has improved we'll continue home Lasix 8. Acute COPD exacerbation. Seen by pulmonary service added steroids. We'll continue with a short steroid taper and continue nebulizer treatment Hospital course This is a 72-year-old female with past medical history noted below significant for metastatic liver cancer who was recently started on Nexavar by her oncologist. Patient said that she has not been feeling well for the past couple of days. She was having low-grade fever at home. She was evaluated by her oncologist in the office and was given some IV fluid and was instructed to go to the emergency room if her fever persists. Patient said that she had a fever of 102.0 at home. She was having chills as well. She denies any flulike symptoms. No cough or shortness of breath. She reported having some burning with her urine but no significant increase in urinary frequency. No abdominal pain. She is also complaining of diarrhea with loose stool up to 4 times per day. She was evaluated in the emergency room and was found to be in severe sepsis without septic shock. She is currently admitted to the hospital for further evaluation. She is feeling a lot better this morning. Patient underwent CT-guided aspirate of the liver abscess. Cultures were negative. Infectious disease followed closely and felt likely the fever and sepsis was mostly related to the necrotic tumor. Patient will follow-up with oncology in the outpatient setting. She's also treated for UTI. Infectious diseases recommending Cipro and Flagyl at discharge. Patient did require transfer to the ICU during this admission due to hypotension and sepsis. Improved with IV fluid hydration. She did require so short course of patient on vasopressor. She is able to be transferred out of the ICU last night. She's been cleared by consulting physicians for discharge. Blood pressures have remained stable. Blood sugars have been fluctuating during this admission she has had some hypoglycemia. This has now resolved. Her Lantus will be decreased to 30 units at bedtime. And she'll continue with 5 units of her Humalog before each meal and sliding scale coverage has been added. Patient is medically stable for discharge. Please refer to chart for any further details. I performed an examination of the patient and discussed their management with the physician Department Administrator. I have reviewed the Physician Department Administrator's notes and agree with the documented findings and plan of care Patient Condition at Discharge: Stable Plan - Discharge Summary Discharge Rx Participant: Yes New Discharge Prescriptions: New Ciprofloxacin HCl [Cipro] 500 mg PO Q12HR #14 tablet metroNIDAZOLE [Flagyl] 500 mg PO Q8HR #21 tab predniSONE 10 mg PO DIRECTED #12 tab Continue rOPINIRole HCL [Requip] 5 mg PO HS Furosemide [Lasix] 60 mg PO DAILY Potassium Chloride ER [K-Dur 20] 20 meq PO BID Magnesium Oxide [Magox 400] 400 mg PO DAILY L.acidoph,Paracasei, B.lactis [Probiotic] 1 cap PO DAILY Lisinopril [Zestril] 5 mg PO DAILY #30 tab Ezetimibe [Zetia] 10 mg PO DAILY Glucosamine-Chondr 500-400Mg 1 tab PO DAILY oxyCODONE-APAP 5-325MG [Percocet 5-325 mg] 1 tab PO Q6HR PRN PRN Reason: Pain Ondansetron [Zofran ODT] 4 mg PO Q8HR PRN PRN Reason: Nausea Acetaminophen/Diphenhydramine [Tylenol PM 500-25mg] 1 tab PO HS PRN PRN Reason: Pain Melatonin 3 mg PO HS PRN PRN Reason: Pain Ipratropium-Albuterol Nebulize [Duoneb 0.5 mg-3 mg/3 ml Soln] 3 ml INHALATION Q4HR PRN PRN Reason: Shortness Of Breath Changed Insulin Glargine [Lantus] 30 unit SQ DAILY #0 Insulin Lispro [humaLOG Kwikpen] 5 unit SQ AC-BRKFST #0 Insulin Lispro [humaLOG Kwikpen] 5 units SQ AC-LUNCH #0 Insulin Lispro [humaLOG Kwikpen] 5 unit SQ AC-SUPPER #0 Discontinued Albuterol Nebulized [Ventolin Nebulized] 2.5 mg INHALATION RT-Q4H PRN PRN Reason: Shortness Of Breath Discharge Medication List Furosemide [Lasix] 60 mg PO DAILY 05/10/16 [History] L.acidoph,Paracasei, B.lactis [Probiotic] 1 cap PO DAILY 05/10/16 [History] Magnesium Oxide [Magox 400] 400 mg PO DAILY 05/10/16 [History] Potassium Chloride ER [K-Dur 20] 20 meq PO BID 05/10/16 [History] rOPINIRole HCL [Requip] 5 mg PO HS 05/10/16 [History] Lisinopril [Zestril] 5 mg PO DAILY #30 tab 05/12/16 [Rx] Ezetimibe [Zetia] 10 mg PO DAILY 10/23/17 [History] Glucosamine-Chondr 500-400Mg 1 tab PO DAILY 10/23/17 [History] Ondansetron [Zofran ODT] 4 mg PO Q8HR PRN 01/11/18 [History] oxyCODONE-APAP 5-325MG [Percocet 5-325 mg] 1 tab PO Q6HR PRN 01/11/18 [History] Acetaminophen/Diphenhydramine [Tylenol PM 500-25mg] 1 tab PO HS PRN 01/13/18 [ History] Melatonin 3 mg PO HS PRN 01/13/18 [History] Ipratropium-Albuterol Nebulize [Duoneb 0.5 mg-3 mg/3 ml Soln] 3 ml INHALATION Q4HR PRN 01/14/18 [History] Ciprofloxacin HCl [Cipro] 500 mg PO Q12HR #14 tablet 01/18/18 [Rx] Insulin Glargine [Lantus] 30 unit SQ DAILY #0 01/18/18 [Rx] Insulin Lispro [humaLOG Kwikpen] 5 unit SQ AC-BRKFST #0 01/18/18 [Rx] Insulin Lispro [humaLOG Kwikpen] 5 unit SQ AC-SUPPER #0 01/18/18 [Rx] Insulin Lispro [humaLOG Kwikpen] 5 units SQ AC-LUNCH #0 01/18/18 [Rx] metroNIDAZOLE [Flagyl] 500 mg PO Q8HR #21 tab 01/18/18 [Rx] predniSONE 10 mg PO DIRECTED #12 tab 01/18/18 [Rx] Follow up Appointment(s)/Referral(s): Jamee Petit DO [Primary Care Provider] - 3 Days Constantin Wilkerson MD [STAFF PHYSICIAN] - 1 Week Activity/Diet/Wound Care/Special Instructions: Diet: cardiac, diabetic Activity: as tolerated Patient will also be given a Humalog sliding scale to use at home. A copy of scale used in the hospital will be given to patient Discharge Disposition: HOME SELF-CARE
== END 2018-01-18 14:27 | disposition home or self-care (01) | DRG 871 ==
LOC: EC 17:41 → 5ONC 20:01 → 6ICU 01-16 06:34 → 4MS4W 01-17 15:38
PROVIDERS: ADMIT Internal Medicine; ATTEND Internal Medicine
PROC: 0F913ZX Drainage of Right Lobe Liver, Percutaneous Approach, Diagnostic (ICD-10-PCS; principal; 2018-01-14)
DX: A41.9 Sepsis, unspecified organism (principal); K75.0 Abscess of liver; R65.21 Severe sepsis with septic shock; N17.9 Acute kidney failure, unspecified; C22.0 Liver cell carcinoma; I11.0 Hypertensive heart disease with heart failure; E11.649 Type 2 diabetes mellitus with hypoglycemia without coma; E86.0 Dehydration; J44.1 Chronic obstructive pulmonary disease with (acute) exacerbation; N39.0 Urinary tract infection, site not specified; I50.9 Heart failure, unspecified; G25.81 Restless legs syndrome; E78.5 Hyperlipidemia, unspecified; R19.7 Diarrhea, unspecified; Z66 Do not resuscitate; B96.1 Klebsiella pneumoniae [K. pneumoniae] as the cause of diseases classified elsewhere; Z16.11 Resistance to penicillins; R09.02 Hypoxemia; I49.3 Ventricular premature depolarization; Z88.0 Allergy status to penicillin; Z79.4 Long term (current) use of insulin; Z79.899 Other long term (current) drug therapy; Z79.891 Long term (current) use of opiate analgesic; Z79.1 Long term (current) use of non-steroidal anti-inflammatories (NSAID); Z82.49 Family history of ischemic heart disease and other diseases of the circulatory system; Z82.5 Family history of asthma and other chronic lower respiratory diseases; Z80.9 Family history of malignant neoplasm, unspecified; Z87.891 Personal history of nicotine dependence; Z92.21 Personal history of antineoplastic chemotherapy; T50.8X5A Adverse effect of diagnostic agents, initial encounter; T50.1X5A Adverse effect of loop [high-ceiling] diuretics, initial encounter
CPT/HCPCS: 10022; 36415; 71045; 71046; 71275; 74177; 77012; 80053; 81001; 82533; 82550; 82553; 83036; 83605; 83735; 84100; 84484; 85025; 85610; 85730; 87040; 87070; 87075; 87077; 87086; 87186; 87205; 87324; 87502; 88173; 88305; 93005; 93970; 94640; 96361; 96365; 96366; 99285

== ENCOUNTER → 2018-03-29 | Outpatient (CLI) | payer MEDICARE, OTHER ==
[2018-03-29 08:24] LABS: Blood Urea Nitrogen 20 mg/dL (7-17)
--- NOTE | 2018-03-29 15:03 | CT ---
EXAMINATION TYPE: CT abdomen pelvis w con DATE OF EXAM: 03/29/2018 COMPARISON: NONE HISTORY: Liver Cancer CT DLP: 1554 mGycm Automated exposure control for dose reduction was used. TECHNIQUE: Helical acquisition of images from the lung bases through the pelvis have been completed. CONTRAST: Performed with Oral Contrast and with IV Contrast, patient injected with 100 ml mL of Isovue 300. FINDINGS: LUNG BASES: No significant abnormality is appreciated. AORTA: Atheromatous changes are present within the aorta. LIVER/GB: The multiple masses seen within the liver. The large confluent area of abnormal mass densit y seen on prior exam has decreased in size and now measures approximately 10.8 cm anterior to posteri or dimension by 13.7 cm in cephalad to caudal dimension as opposed to prior when it measured approxim ately 12.7 x 20.3 cm. Additional smaller masses are present which are decreased in size, the lateral segment of the left lobe shows a lesion now measuring 3 cm which measured approximately 3.5 cm on mayda or. Gallbladder is contracted. PANCREAS: No significant abnormality is seen. SPLEEN: No significant abnormality is seen. ADRENALS: No significant abnormality is seen. KIDNEYS: No significant abnormality is seen. REPRODUCTIVE ORGANS: No significant abnormality is seen BOWEL: No significant abnormality is seen. FREE AIR: No Free Air visible. ASCITES: None visible. PELVIC ADENOPATHY: None visualized. RETROPERITONEAL ADENOPATHY: No Retroperitoneal Adenopathy visible. URINARY BLADDER: No significant abnormality is seen. OSSEOUS STRUCTURES: No significant abnormality is seen. IMPRESSION: Improvement in liver lesion sizes as described.
== END ==
LOC: RADCTMAIN 07:34
PROVIDERS: ATTEND Internal Medicine Hematology & Oncology
DX: Z03.89 Encounter for observation for other suspected diseases and conditions ruled out (principal); C22.8 Malignant neoplasm of liver, primary, unspecified as to type; Z88.0 Allergy status to penicillin
CPT/HCPCS: 82565; 84520; 74177; 36415; Q9967

== ENCOUNTER 2018-03-30 09:37 | Emergency (ER) | payer MEDICARE, OTHER ==
[2018-03-30] MEDS ORDERED: DEXAMETHASONE SOD PHOSPHATE 10 MG/ML 1 ML VIAL IM STA (09:55)
[2018-03-30] MEDS ORDERED: hydrOXYzine HCL 25 MG TAB PO STA (09:55)
[2018-03-30] MEDS ORDERED: FAMOTIDINE 20 MG TAB PO STA (09:55)
[2018-03-30 10:03] VITALS: BP 111/55; PULSE 90; TEMP 98.7
--- NOTE | 2018-03-30 10:42 | ED ---
General Adult HPI - General Chief complaint: Allergic Reaction Stated complaint: Allergic reaction Time Seen by Provider: 03/30/18 09:45 Source: patient, RN notes reviewed, old records reviewed Mode of arrival: ambulatory Limitations: no limitations - History of Present Illness Initial comments: This is a 72-year-old female to the ER for evaluation. Patient was essay for evaluation regarding ALLERGIC reaction. Unknown cause fluid retention. Patient also states rash, itching for rash. No recent history of similar complaint. Patient coming on any medications. Patient denies shortness of breath or Tylenol swelling - Related Data Home Medications Medication Instructions Recorded Confirmed Furosemide [Lasix] 60 mg PO DAILY 05/10/16 01/13/18 L.acidoph,Paracasei, B.lactis 1 cap PO DAILY 05/10/16 01/11/18 [Probiotic] Magnesium Oxide [Magox 400] 400 mg PO DAILY 05/10/16 01/11/18 Potassium Chloride ER [K-Dur 20] 20 meq PO BID 05/10/16 01/11/18 rOPINIRole HCL [Requip] 5 mg PO HS 05/10/16 01/11/18 Ezetimibe [Zetia] 10 mg PO DAILY 10/23/17 01/11/18 Glucosamine-Chondr 500-400Mg 1 tab PO DAILY 10/23/17 01/11/18 Ondansetron [Zofran ODT] 4 mg PO Q8HR PRN 01/11/18 01/11/18 oxyCODONE-APAP 5-325MG [Percocet 1 tab PO Q6HR PRN 01/11/18 01/11/18 5-325 mg] Acetaminophen/Diphenhydramine 1 tab PO HS PRN 01/13/18 01/13/18 [Tylenol PM 500-25mg] Melatonin 3 mg PO HS PRN 01/13/18 01/13/18 Ipratropium-Albuterol Nebulize 3 ml INHALATION Q4HR PRN 01/14/18 01/14/18 [Duoneb 0.5 mg-3 mg/3 ml Soln] Previous Rx's Medication Instructions Recorded Lisinopril [Zestril] 5 mg PO DAILY #30 tab 05/12/16 Ciprofloxacin HCl [Cipro] 500 mg PO Q12HR #14 tablet 01/18/18 Insulin Glargine [Lantus] 30 unit SQ DAILY #0 01/18/18 Insulin Lispro [humaLOG Kwikpen] 5 unit SQ AC-BRKFST #0 01/18/18 Insulin Lispro [humaLOG Kwikpen] 5 unit SQ AC-SUPPER #0 01/18/18 Insulin Lispro [humaLOG Kwikpen] 5 units SQ AC-LUNCH #0 01/18/18 metroNIDAZOLE [Flagyl] 500 mg PO Q8HR #21 tab 01/18/18 predniSONE 10 mg PO DIRECTED #12 tab 01/18/18 Famotidine [Pepcid] 20 mg PO BID #14 tablet 03/30/18 hydrOXYzine HCL [Atarax] 25 mg PO TID PRN #15 tab 03/30/18 Allergies Allergy/AdvReac Type Severity Reaction Status Date / Time ciprofloxacin Allergy Rash/Hives Verified 03/30/18 09:44 metronidazole [From Flagyl] Allergy Rash/Hives Verified 03/30/18 09:44 Penicillins AdvReac Rash/Hives Verified 01/13/18 11:33 Review of Systems ROS Statement: Those systems with pertinent positive or pertinent negative responses have been documented in the HPI. ROS Other: All systems not noted in ROS Statement are negative. Past Medical History Past Medical History: Cancer, Heart Failure, Diabetes Mellitus, Hyperlipidemia, Hypertension Additional Past Medical History / Comment(s): RLS, Liver Cancer History of Any Multi-Drug Resistant Organisms: None Reported Past Surgical History: Back Surgery Additional Past Surgical History / Comment(s): COLONOCOPY Past Anesthesia/Blood Transfusion Reactions: No Reported Reaction Past Psychological History: No Psychological Hx Reported Smoking Status: Former smoker Past Alcohol Use History: None Reported Past Drug Use History: None Reported - Past Family History Father Family Medical History: Cancer Mother Family Medical History: Congestive Heart Failure (CHF), COPD Brother(s) Family Medical History: Cancer General Exam Limitations: no limitations General appearance: alert, in no apparent distress Head exam: Present: atraumatic, normocephalic, normal inspection Eye exam: Present: normal appearance, PERRL, EOMI. Absent: scleral icterus, conjunctival injection, periorbital swelling ENT exam: Present: normal exam, mucous membranes moist Neck exam: Present: normal inspection. Absent: tenderness, meningismus, lymphadenopathy Respiratory exam: Present: normal lung sounds bilaterally. Absent: respiratory distress, wheezes, rales, rhonchi, stridor Cardiovascular Exam: Present: regular rate, normal rhythm, normal heart sounds. Absent: systolic murmur, diastolic murmur, rubs, gallop, clicks GI/Abdominal exam: Present: soft, normal bowel sounds. Absent: distended, tenderness, guarding, rebound, rigid Extremities exam: Present: normal inspection, full ROM, normal capillary refill. Absent: tenderness, pedal edema, joint swelling, calf tenderness Back exam: Present: normal inspection Neurological exam: Present: alert, oriented X3, CN II-XII intact Psychiatric exam: Present: normal affect, normal mood Skin exam: Present: warm, dry, intact, normal color. Absent: rash Course Vital Signs 03/30/18 03/30/18 09:39 10:54 Temperature 98.7 F Pulse Rate 90 Respiratory 18 16 Rate Blood Pressure 111/55 O2 Sat by Pulse 100 Oximetry Medical Decision Making - Medical Decision Making 72 female the ER for evaluation of unknown cause of urticaria ALLERGIC reaction. Symptoms resolved currently. Patient has no shortness of breath no stridor. No swelling of tongue or mouth. Patient can be discharged home Disposition Clinical Impression: Allergic reaction, Urticaria Disposition: HOME SELF-CARE Condition: Good Instructions: Urticaria (ED) Prescriptions: Famotidine [Pepcid] 20 mg PO BID #14 tablet hydrOXYzine HCL [Atarax] 25 mg PO TID PRN #15 tab PRN Reason: Itching Is patient prescribed a controlled substance at d/c from ED?: No Referrals: Jamee Petit DO [Primary Care Provider] - 1-2 days
[2018-03-30 10:55] VITALS: RESP 16
== END 2018-03-30 10:50 | disposition home or self-care (01) ==
LOC: EC 09:37
DX: L50.0 Allergic urticaria (principal); R60.9 Edema, unspecified; I11.0 Hypertensive heart disease with heart failure; I50.9 Heart failure, unspecified; E78.5 Hyperlipidemia, unspecified; G25.81 Restless legs syndrome; Z87.891 Personal history of nicotine dependence; Z85.05 Personal history of malignant neoplasm of liver; Z79.899 Other long term (current) drug therapy; Z88.0 Allergy status to penicillin; Z88.1 Allergy status to other antibiotic agents
CPT/HCPCS: 99283; 96372; J1100

== ENCOUNTER → 2018-07-10 | Outpatient (CLI) | payer MEDICARE, OTHER ==
[2018-07-10 17:32] LABS: Blood Urea Nitrogen 21 mg/dL (7-17)
--- NOTE | 2018-07-10 22:47 | CT ---
EXAMINATION TYPE: CT abdomen w con DATE OF EXAM: 07/10/2018 COMPARISON: 03/29/2018 HISTORY: 72-year-old female with liver cancer TECHNIQUE: Contiguous axial scanning of the abdomen following administration of 100 ml Isovue 300 IV contrast. Delayed images through the kidneys and coronal/sagittal reconstructions performed. CT DLP: 1473.6 mGycm Automated exposure control for dose reduction was used. FINDINGS: Heart upper limits of normal in size without pericardial effusion. Tiny hiatal hernia. Lung bases johanna ar without pleural effusion. Numerous hepatic lesions are present. Many of these are heterogeneous and hypodense. These lesions posey ve decreased in size in the interval, largest is in the right hepatic lobe measuring 8.6 cm versus 10 .8 cm, previously. Numerous additional hypodense lesions show decrease in size. However, new in the interval are hypervascular masses that show washout on delayed kidney images. Lar gest is present in the left liver lobe, at the junction of segments 2 and 4A, measuring 4.0 cm, refer ence axial image 19. Additional hypervascular masses are present measuring 2.2 cm lower segment 4A, a nteriorly, and within the hepatic dome measuring 2.0 cm, axial image 13 and 9 mm, axial image 12. Cholecystectomy clips. No biliary ductal dilatation. Portal venous system appears patent. Mild diffuse thickening of the right adrenal gland without discrete nodularity, similar to prior. Sli ght increase nodular thickening of the left adrenal gland measuring 1.3 cm. The right kidney is slightly malrotated. 2 cm cortical cyst posterior upper pole left kidney. Spleen and pancreas show no gross abnormality. Moderate prostatic calcifications abdominal aorta and iliac arteries. No dilated small bowel, free fluid, or free air. Normal appendix. Mild stool burden and left-sided colonic diverticulosis. No pericolonic inflammatory change. Bones: Degenerative changes throughout the lumbar spine with bilateral L5 hemisacralization. IMPRESSION: 1. WHILE THE PREVIOUS HETEROGENEOUS HYPODENSE MULTIPLE HEPATIC MASSES SHOW DECREASING SIZE (FOR EXAMP LE, DOMINANT MASS IN THE RIGHT LIVER LOBE MEASURING 8.6 CM VERSUS 10.8 CM, PREVIOUSLY), THERE ARE NEW HYPERVASCULAR MASSES (APPROXIMATELY 4, LARGEST MEASURING UP TO 4.0 CM IN THE LEFT LOBE). FINDINGS RYDER GGEST MIXED RESPONSE BUT WITH OVERALL PROGRESSION GIVEN THE NEW LESIONS. 2. INCREASED NODULARITY OF THE LEFT ADRENAL GLAND AT 1.3 CM. 3. LEFT-SIDED CLINOID DIVERTICULOSIS.
== END | disposition home or self-care (01) ==
LOC: RADCTMAIN 16:34
PROVIDERS: ATTEND Internal Medicine Hematology & Oncology
DX: R16.0 Hepatomegaly, not elsewhere classified (principal); C22.8 Malignant neoplasm of liver, primary, unspecified as to type; E27.8 Other specified disorders of adrenal gland; K57.30 Diverticulosis of large intestine without perforation or abscess without bleeding; Z88.0 Allergy status to penicillin; Z88.1 Allergy status to other antibiotic agents
CPT/HCPCS: 82565; 84520; 74160; 36415; Q9967

== ENCOUNTER → 2018-10-25 | Outpatient (CLI) | payer MEDICARE, OTHER ==
[2018-10-25 13:22] LABS: Blood Urea Nitrogen 16 mg/dL (7-17)
--- NOTE | 2018-10-25 14:48 | CT ---
EXAMINATION TYPE: CT abdomen pelvis w con DATE OF EXAM: 10/25/2018 HISTORY: Liver CA CT DLP: 1492mGycm Automated Exposure Control for Dose Reduction was Utilized. CONTRAST: CT scan of the abdomen and pelvis is performed with IV Contrast, patient injected with 100 mL of Isov ue 300. COMPARISON: CT abdomen July 10, 2018 and older [address]s. FINDINGS: Evaluation noted suboptimal as noted no hepatic arterial phase imaging or dedicated liver p rotocol imaging is performed. LUNG BASES: There is patchy bibasilar linear scarring and/or atelectasis. LIVER/GB: Embolization coils near tank hepatis are redemonstrated causing streak artifact. There is lobulated contour to the liver again seen. There are numerous masses of varying density throughout th e liver redemonstrated. Largest lobulated hypodense mass right hepatic lobe measures up to 5.9 cm irma g axis axial image 31 diminished in size from prior studies. Central left hepatic lobe mass measures 4.9 cm long axis current study image 19 series 3 versus 4.6 cm prior study not significantly changed. Some of the hyperdense lesions show washout. There is poor visualization of draining hepatic veins. Main pulmonary artery is patent and prominent similar to prior. There is however new soft tissue nodularity along inferior anterior aspect of liver near axial image 38 worrisome for peritoneal carcinomatosis PANCREAS: No significant abnormality is seen. SPLEEN: Stable upper limits of normal in size. ADRENALS: Stable 1.2 cm nodular thickening left adrenal gland axial image 23 series 3. KIDNEYS: No significant abnormality is seen. BOWEL: Oral contrast does not reach level of terminal ileum. There is no suspicious small or large tu wel dilatation. There is moderate wall thickening involving the right and transverse colon. There are numerous diffuse diverticula throughout the colon. UTERUS/ADNEXA: No gross abnormality seen. LYMPH NODES: No greater than 1cm abdominal or pelvic lymph nodes are appreciated. OSSEOUS STRUCTURES: Levoconvex scoliosis is present. There is multilevel spurring and disc space narr owing. OTHER: Moderate to severe calcified plaque of aorta extends into branch vessels.. IMPRESSION: Suboptimal study, overall mixed response felt present. Some lesions stable or diminished in size from prior. There is however new peritoneal deposition along the anterior-inferior aspect of liver.
== END ==
LOC: RADCTMAIN 12:52
PROVIDERS: ATTEND Internal Medicine Hematology & Oncology
DX: C22.8 Malignant neoplasm of liver, primary, unspecified as to type (principal); Z88.0 Allergy status to penicillin; Z88.1 Allergy status to other antibiotic agents
CPT/HCPCS: 82565; 84520; 74177; 36415; Q9967

== ENCOUNTER → 2019-02-17 | Outpatient (CLI) | payer MEDICARE, OTHER ==
[2019-02-17 12:24] LABS: Blood Urea Nitrogen 17 mg/dL (7-17)
--- NOTE | 2019-02-17 13:49 | CT ---
EXAMINATION TYPE: CT abdomen pelvis w con DATE OF EXAM: 02/17/2019 COMPARISON: 10/25/2018 HISTORY: Follow up liver cancer. CT DLP: 1487.4 mGycm CONTRAST: CT scan of the abdomen and pelvis is performed with Oral Contrast and with IV Contrast, patient injec genaro with 100 mL of Isovue 300. FINDINGS: LUNG BASES-: No visible nodule. No infiltrate. Basilar atelectasis noted. LIVER/GB: Again noted are embolization coils near the tank hepatis resulting in streak artifact. The liver again demonstrates a lobulated peripheral contour. Again noted are numerous masses of varying density throughout the liver. The largest lobulated mass is noted right hepatic lobe anterior segment measuring 5.4 x 5.2 cm versus 6.2 x 5.2 cm previously. No new nodules are identified at this time. R elatively isodense mass of the left hepatic lobe measures 4.6 cm versus 4.9 cm previously. Again note d are multiple nodules identified adjacent to the liver suspicious for peritoneal carcinomatosis the masses have increased in size the largest being within the region of the right paracolic gutter measu ring 4.8 x 2.5 cm. PANCREAS: No inflammation. No distinct mass. SPLEEN: No splenic enlargement. No lesion seen. ADRENALS: Stable nodular thickening of the adrenal glands. KIDNEYS/BLADDER: No hydronephrosis. No nephrolithiasis. No distinct renal mass. Urinary bladder g rossly unremarkable. BOWEL: Normal appendix. Normal bowel caliber. No inflammation. GENITAL ORGANS: No gross abnormality. LYMPH NODES: No greater than 1cm abdominal or pelvic lymph nodes are appreciated. AORTA: No significant abnormality. OSSEOUS STRUCTURES: No significant abnormality is seen. OTHER: No significant additional abnormality is seen. IMPRESSION: 1. Multiple hepatic masses are redemonstrated and appear essentially stable. 2. Peritoneal carcinomatosis adjacent to the liver and extending into the paracolic gutter on the rig ht demonstrates increased size and overall number.
== END | disposition home or self-care (01) ==
LOC: RADCTMAIN 08:45
PROVIDERS: ATTEND Internal Medicine Hematology & Oncology
DX: Z03.89 Encounter for observation for other suspected diseases and conditions ruled out (principal); C22.8 Malignant neoplasm of liver, primary, unspecified as to type; C78.6 Secondary malignant neoplasm of retroperitoneum and peritoneum; Z88.1 Allergy status to other antibiotic agents; Z88.0 Allergy status to penicillin
CPT/HCPCS: 82565; 84520; 74177; 36415; Q9967

== ENCOUNTER → 2019-06-19 | Outpatient (CLI) | payer MEDICARE, OTHER ==
--- NOTE | 2019-06-19 13:03 | US ---
EXAMINATION TYPE: US venous doppler duplex LE RT DATE OF EXAM: 06/19/2019 12:46 PM COMPARISON: NONE CLINICAL HISTORY: rt lower ext pain and swelling M79.661 R22.41. pain and swelling, no h/o dvt SIDE PERFORMED: Right TECHNIQUE: The lower extremity deep venous system is examined utilizing real time linear array sonog ernestina with graded compression, doppler sonography and color-flow sonography. VESSELS IMAGED: External Iliac Vein (EIV) Common Femoral Vein Deep Femoral Vein Greater Saphenous Vein * Femoral Vein Popliteal Vein Small Saphenous Vein * Proximal Calf Veins (* superficial vessels) Right Leg: Appears negative for DVT IMPRESSION: 1. Right lower extremity ultrasound negative for deep venous thrombosis.
== END | disposition home or self-care (01) ==
LOC: RADUSWWP 12:27
PROVIDERS: ATTEND Internal Medicine Hematology & Oncology
DX: Z03.89 Encounter for observation for other suspected diseases and conditions ruled out (principal); C22.8 Malignant neoplasm of liver, primary, unspecified as to type; M79.661 Pain in right lower leg; R22.41 Localized swelling, mass and lump, right lower limb; Z88.0 Allergy status to penicillin; Z88.1 Allergy status to other antibiotic agents

== ENCOUNTER → 2019-06-27 | Outpatient (CLI) | payer MEDICARE, OTHER ==
[2019-06-27 08:19] LABS: African American GFR (CKD) >90 (>60 ml/min/1.73 sqM); Blood Urea Nitrogen 17 mg/dL (7-17)
--- NOTE | 2019-06-27 17:34 | CT ---
EXAMINATION TYPE: CT ChestAbdPelvis w con DATE OF EXAM: 06/27/2019 INDICATION: Follow up liver cancer COMPARISON: 02/17/2019 CT abdomen and pelvis CT DLP: 1302 mGycm CONTRAST: Performed with Oral Contrast and with IV Contrast, patient injected with 100 mL of Isovue 300. TECHNIQUE: Axial images at 5 mm thick sections. Reconstructed images in the coronal plane. Delayed images through the kidneys. FINDINGS: CT CHEST: Portion of the thyroid visualized is normal. No suspicious lung nodules or focal infiltrates are present. Mild infiltrate in the right middle lobe . No enlarged mediastinal or hilar adenopathy is evident. The ascending aorta diameter at the level of the main pulmonary artery is 3.7 cm. The main pulmonary artery diameter at the bifurcation is 3.7 cm. Moderate coronary artery calcification is present. CT ABDOMEN: Liver: There are multiple scattered hyperdensities scattered throughout the left and right lobes of t he liver suspicious for metastasis. A larger area measures 3.1 cm in the left lobe. A large isodense structure with a rim of hypodensity is present in the medial left lobe liver measuring 5.4 cm. Series 3 image 55. There is an additional expansile similar lesion measuring 5.3 cm in diameter within the inferior left lobe liver. Series 3 image 71. Previous suspected metastases have changed somewhat previously measuring 5.4 x 5.2 cm and currently m easuring 4.7 x 5.5 cm. Series 3 image 66. Prior coiling of the liver may be present within the upper right lobe liver. Spleen: Normal Pancreas: Atrophic Adrenal glands: The adrenal glands are normal. Gallbladder: Normal Kidneys: No masses are evident. No hydronephrosis is present. There is a posterior superior left re nal cyst measuring 2.0 cm. Delayed images were obtained through the kidneys and Aorta: Vascular calcification is within the aorta. Inferior vena cava: Normal. CT PELVIS: Loops of bowel within the abdomen and pelvis are normal. Oral contrast extends to the distal smal l bowel loops. Multiple diverticuli within the sigmoid colon. Small amount of contrast enters the cec um. Appendix: Normal as visualized. Urinary bladder: Unremarkable Genitourinary structures: Uterus and adnexa appear within normal limits. Osseous structures: No suspicious lytic or sclerotic lesions. Scoliosis to the lumbar spine. Sacroili ac joint and degenerative disc changes are present. IMPRESSIONS: 1. Multiple hyperdensities scattered throughout both lobes of the liver suspicious for metastatic les ions. These appear to be an interval finding. 2. At least 2 large isodense structures with a rim of peripheral enhancement could also represent add itional metastases. These are unchanged from comparison. The previous described metastatic lesion is somewhat changed its configuration from comparison.
== END | disposition home or self-care (01) ==
LOC: RADCTMAIN 06:51
PROVIDERS: ATTEND Internal Medicine Hematology & Oncology
DX: C22.8 Malignant neoplasm of liver, primary, unspecified as to type (principal); Z88.0 Allergy status to penicillin; Z88.1 Allergy status to other antibiotic agents
CPT/HCPCS: 82565; 84520; 71260; 74177; 36415; Q9967

== ENCOUNTER 2019-08-18 17:24 | Observation (INO) | payer MEDICARE, OTHER ==
[2019-08-18 17:38] LABS: Glucose,Whole Blood 112 mg/dL (75-99)
[2019-08-18] MEDS ORDERED: SODIUM CHLORIDE 0.9% 500 ML 500 ML IV STA (18:11)
--- NOTE | 2019-08-18 18:12 | ED ---
Recheck HPI - General Source: patient, family, EMS Mode of arrival: EMS Limitations: no limitations <Aleah Thomas - Last Filed: 08/18/19 20:48> <Mp Perez - Last Filed: 08/18/19 21:19> - General Chief Complaint: Recheck/Abnormal Lab/Rx Stated Complaint: not feeling well Time Seen by Provider: 08/18/19 17:48 - History of Present Illness Initial Comments: 73-year-old female with history of liver cancer, congestive heart failure, diabetes, hypertension presenting to the emergency department for evaluation of generalized weakness fatigue for the past month and low blood pressure reading at primary care provider office at 3 PM today. Patient states that for the past 2 months she she has been experiencing fatigue and generalized weakness she feels like she is drained fall energy. Patient has also noticed increased itching all over body. She states this is very annoying. Patient states she has overall just and unwell feeling. She states she presented to her primary care provider for evaluation today at 3 PM where she had a low blood pressure reading and was sent to the emergency department for further evaluation. Patient denies any chest pain shortness of breath headache dizziness nausea vomiting back pain. Patient states she has right upper quadrant tenderness which has been consistent since her diagnosis of liver cancer. Patient denies hemoptysis fevers neck stiffness cough congestion. Patient states she has had bilateral leg swelling that seems to have been increasing-her family provider has increase her dose of Lasix. Patient denies any focalized weakness. She states she did have some slight pain in her left arm approximately 3 days ago. Patient denies any indigestion, or jaw pain. Patient states she felt slighty lightheaded on arrival, found to have low blood sugar. Remaining ROS (-). Upon arrival BP WNL. Patient does not appear in acute distress. (Aleah Thomas) - Related Data Home Medications Medication Instructions Recorded Confirmed Furosemide [Lasix] 60 mg PO DAILY 05/10/16 08/18/19 L.acidoph,Paracasei, B.lactis 1 cap PO DAILY 05/10/16 08/18/19 [Probiotic] Potassium Chloride ER [K-Dur 20] 20 meq PO BID 05/10/16 08/18/19 rOPINIRole HCL [Requip] 5 mg PO HS 05/10/16 08/18/19 Ezetimibe [Zetia] 10 mg PO DAILY 10/23/17 08/18/19 oxyCODONE-APAP 5-325MG [Percocet 0.5 tab PO DAILY PRN 01/11/18 08/18/19 5-325 mg] Insulin Glargine [Lantus] 60 unit SQ DAILY 08/18/19 08/18/19 Insulin Lispro [humaLOG Kwikpen] 12 unit SQ AC-BRKFST 08/18/19 08/18/19 Insulin Lispro [humaLOG Kwikpen] 12 units SQ AC-LUNCH 08/18/19 08/18/19 Insulin Lispro [humaLOG Kwikpen] 16 unit SQ AC-SUPPER 08/18/19 08/18/19 Melatonin 5 mg PO HS 08/18/19 08/18/19 Tri-Flex 1 tab PO DAILY 08/18/19 08/18/19 Previous Rx's Medication Instructions Recorded Lisinopril [Zestril] 5 mg PO DAILY #30 tab 05/12/16 hydrOXYzine HCL [Atarax] 25 mg PO TID PRN #15 tab 03/30/18 Allergies Allergy/AdvReac Type Severity Reaction Status Date / Time ciprofloxacin Allergy Rash/Hives Verified 08/18/19 18:17 metronidazole [From Flagyl] Allergy Rash/Hives Verified 08/18/19 18:17 Penicillins AdvReac Rash/Hives Verified 08/18/19 18:17 Review of Systems ROS Other: All systems not noted in ROS Statement are negative. <Aleah Thomas - Last Filed: 08/18/19 20:48> ROS Other: All systems not noted in ROS Statement are negative. <Mp Perez - Last Filed: 08/18/19 21:19> ROS Statement: Those systems with pertinent positive or pertinent negative responses have been documented in the HPI. Past Medical History Past Medical History: Cancer, Heart Failure, Diabetes Mellitus, Hyperlipidemia, Hypertension Additional Past Medical History / Comment(s): RLS, Liver Cancer History of Any Multi-Drug Resistant Organisms: None Reported Past Surgical History: Back Surgery Additional Past Surgical History / Comment(s): COLONOCOPY Past Anesthesia/Blood Transfusion Reactions: No Reported Reaction Past Psychological History: No Psychological Hx Reported Smoking Status: Former smoker Past Alcohol Use History: None Reported Past Drug Use History: None Reported - Past Family History Father Family Medical History: Cancer Mother Family Medical History: Congestive Heart Failure (CHF), COPD Brother(s) Family Medical History: Cancer <Aleha Thomas - Last Filed: 08/18/19 20:48> General Exam Limitations: no limitations <Aleah Thomas - Last Filed: 08/18/19 20:48> - General Exam Comments Initial Comments: General: The patient is awake and alert, in no distress Eye: +3 mm pupils are equal, round and reactive to light, extra-ocular movements are intact. No nystagmus. There is normal conjunctiva bilaterally. No signs of icterus. Ears, nose, mouth and throat: There are moist mucous membranes and no oral lesions. Neck: The neck is supple, there is no tenderness or JVD. Cardiovascular: There is a regular rate and rhythm. Murmur appreciated. No rub or gallop is appreciated. Respiratory: Lungs are clear to auscultation, respirations are non-labored, breath sounds are equal. No wheezes, stridor, rales, or rhonchi. Gastrointestinal: Soft, slightly distended abomen, that is non-tender abdomen without masses or organomegaly noted. There is no rebound or guarding present. Musculoskeletal: Normal ROM, no tenderness. Strength 5/5 of the UE and LE including machine operations supervisor strength equal. Sensation intact and equal of UE and LE b/l.Radil and DP pulses equal bilaterally 2+. Neurological: A&O x 3. CN II-XII intact, There are no obvious motor or sensory deficits. Coordination appears grossly intact. Speech is normal. No pronator drift. No drift of the lower extremities. Skin: Skin is warm and dry and no rashes or lesions are noted. B/l LE edema pitting +1. Psychiatric: Cooperative, appropriate mood & affect, normal judgment. (Aleah Thomas) Course Vital Signs 08/18/19 08/18/19 08/18/19 17:31 19:09 20:05 Temperature 97.9 F Pulse Rate 82 89 Pulse Rate [ 82 Left Supine Bell Cleaner ] Pulse Rate [ 85 Standing Bell Cleaner ] Respiratory 18 16 16 Rate Blood Pressure 113/83 113/83 Blood Pressure 91/55 [Right Arm Standing] Blood Pressure 100/56 [Right Arm Supine] O2 Sat by Pulse 94 L 93 L Oximetry 08/18/19 20:28 Temperature Pulse Rate 88 Pulse Rate [ Left Supine Bell Cleaner ] Pulse Rate [ Standing Bell Cleaner ] Respiratory 18 Rate Blood Pressure 103/59 Blood Pressure [Right Arm Standing] Blood Pressure [Right Arm Supine] O2 Sat by Pulse 94 L Oximetry Medical Decision Making - Lab Data Result diagrams: 08/18/19 17:37 08/18/19 17:37 <Aleah Thomas - Last Filed: 08/18/19 20:48> - Lab Data Result diagrams: 08/18/19 17:37 08/18/19 17:37 <Mp Perez - Last Filed: 08/18/19 21:19> - Medical Decision Making 73-year-old female presenting for hypotension. Has had fatigue and generalized weakness for greater than 2 months. Complaining of chronic itching. History of liver cancer. EKG no acute findings. Troponin negative. Patient does have low albumin. Positive orthostatics. Patient given IV hydration. BMP within acceptable limits. Swelling of the legs bilaterally most likely due to third spacing. I discussed the case by attending provider given patient's advanced age and hypotension she'll be admitted for further evaluation and IV hydration. Patient is agreeable to admission. Remained told in the emergency department however admitting provider will resume further care. Dr. Perez did contact and speak with accepting admitting provider, as well as evaluated the patient in person. (Aleah Thomas) The patient was seen and examined. All diagnostics are reviewed. The case is discussed with the PA and I agree with the findings as discussed. Case also was discussed with Dr. Pathak and he is agreeable with admission and would like cardiology to consult as well. (Mp Perez) - Lab Data Lab Results 08/18/19 08/18/19 08/18/19 Range/Units 17:36 17:37 17:37 WBC 5.1 (3.8-10.6) k/uL RBC 3.97 (3.80-5.40) m/uL Hgb 11.8 (11.4-16.0) gm/dL Hct 35.5 (34.0-46.0) % MCV 89.3 (80.0-100.0) fL MCH 29.6 (25.0-35.0) pg MCHC 33.2 (31.0-37.0) g/dL RDW 15.6 H (11.5-15.5) % Plt Count 203 (150-450) k/uL Neutrophils % 66 % Lymphocytes % 17 % Monocytes % 6 % Eosinophils % 6 % Basophils % 1 % Neutrophils # 3.4 (1.3-7.7) k/uL Lymphocytes # 0.9 L (1.0-4.8) k/uL Monocytes # 0.3 (0-1.0) k/uL Eosinophils # 0.3 (0-0.7) k/uL Basophils # 0.1 (0-0.2) k/uL PT (9.0-12.0) sec INR (<1.2) APTT (22.0-30.0) sec Sodium 137 (137-145) mmol/L Potassium 4.2 (3.5-5.1) mmol/L Chloride 105 (98-107) mmol/L Carbon Dioxide 20 L (22-30) mmol/L Anion Gap 12 mmol/L BUN 62 H (7-17) mg/dL Creatinine 1.11 H (0.52-1.04) mg/dL Est GFR (CKD-EPI)AfAm 57 (>60 ml/min/1.73 sqM) Est GFR (CKD-EPI)NonAf 49 (>60 ml/min/1.73 sqM) Glucose 111 H (74-99) mg/dL POC Glucose (mg/dL) 112 H (75-99) mg/dL POC Glu Milling Supervisor ID Tila Roman Plasma Lactic Acid Raf (0.7-2.0) mmol/L Calcium 8.2 L (8.4-10.2) mg/dL Magnesium 2.4 H (1.6-2.3) mg/dL Total Bilirubin 1.3 (0.2-1.3) mg/dL AST 159 H (14-36) U/L ALT 98 H (9-52) U/L Alkaline Phosphatase 888 H (38-126) U/L Ammonia (<30) umol/L Troponin I (0.000-0.034) ng/mL NT-Pro-B Natriuret Pep pg/mL Total Protein 5.5 L (6.3-8.2) g/dL Albumin 2.6 L (3.5-5.0) g/dL Urine Color Urine Appearance (Clear) Urine pH (5.0-8.0) Ur Specific [place] (1.001-1.035) Urine Protein (Negative) Urine Glucose (UA) (Negative) Urine Ketones (Negative) Urine Blood (Negative) Urine Nitrite (Negative) Urine Bilirubin (Negative) Urine Urobilinogen (<2.0) mg/dL Ur Leukocyte Esterase (Negative) 08/18/19 08/18/19 08/18/19 Range/Units 17:37 17:37 17:37 WBC (3.8-10.6) k/uL RBC (3.80-5.40) m/uL Hgb (11.4-16.0) gm/dL Hct (34.0-46.0) % MCV (80.0-100.0) fL MCH (25.0-35.0) pg MCHC (31.0-37.0) g/dL RDW (11.5-15.5) % Plt Count (150-450) k/uL Neutrophils % % Lymphocytes % % Monocytes % % Eosinophils % % Basophils % % Neutrophils # (1.3-7.7) k/uL Lymphocytes # (1.0-4.8) k/uL Monocytes # (0-1.0) k/uL Eosinophils # (0-0.7) k/uL Basophils # (0-0.2) k/uL PT 11.0 (9.0-12.0) sec INR 1.0 (<1.2) APTT 31.0 H (22.0-30.0) sec Sodium (137-145) mmol/L Potassium (3.5-5.1) mmol/L Chloride (98-107) mmol/L Carbon Dioxide (22-30) mmol/L Anion Gap mmol/L BUN (7-17) mg/dL Creatinine (0.52-1.04) mg/dL Est GFR (CKD-EPI)AfAm (>60 ml/min/1.73 sqM) Est GFR (CKD-EPI)NonAf (>60 ml/min/1.73 sqM) Glucose (74-99) mg/dL POC Glucose (mg/dL) (75-99) mg/dL POC Glu Milling Supervisor ID Plasma Lactic Acid Raf 1.6 (0.7-2.0) mmol/L Calcium (8.4-10.2) mg/dL Magnesium (1.6-2.3) mg/dL Total Bilirubin (0.2-1.3) mg/dL AST (14-36) U/L ALT (9-52) U/L Alkaline Phosphatase (38-126) U/L Ammonia 27 (<30) umol/L Troponin I (0.000-0.034) ng/mL NT-Pro-B Natriuret Pep 146 pg/mL Total Protein (6.3-8.2) g/dL Albumin (3.5-5.0) g/dL Urine Color Urine Appearance (Clear) Urine pH (5.0-8.0) Ur Specific [place] (1.001-1.035) Urine Protein (Negative) Urine Glucose (UA) (Negative) Urine Ketones (Negative) Urine Blood (Negative) Urine Nitrite (Negative) Urine Bilirubin (Negative) Urine Urobilinogen (<2.0) mg/dL Ur Leukocyte Esterase (Negative) 08/18/19 08/18/19 Range/Units 17:37 19:05 WBC (3.8-10.6) k/uL RBC (3.80-5.40) m/uL Hgb (11.4-16.0) gm/dL Hct (34.0-46.0) % MCV (80.0-100.0) fL MCH (25.0-35.0) pg MCHC (31.0-37.0) g/dL RDW (11.5-15.5) % Plt Count (150-450) k/uL Neutrophils % % Lymphocytes % % Monocytes % % Eosinophils % % Basophils % % Neutrophils # (1.3-7.7) k/uL Lymphocytes # (1.0-4.8) k/uL Monocytes # (0-1.0) k/uL Eosinophils # (0-0.7) k/uL Basophils # (0-0.2) k/uL PT (9.0-12.0) sec INR (<1.2) APTT (22.0-30.0) sec Sodium (137-145) mmol/L Potassium (3.5-5.1) mmol/L Chloride (98-107) mmol/L Carbon Dioxide (22-30) mmol/L Anion Gap mmol/L BUN (7-17) mg/dL Creatinine (0.52-1.04) mg/dL Est GFR (CKD-EPI)AfAm (>60 ml/min/1.73 sqM) Est GFR (CKD-EPI)NonAf (>60 ml/min/1.73 sqM) Glucose (74-99) mg/dL POC Glucose (mg/dL) (75-99) mg/dL POC Glu Milling Supervisor ID Plasma Lactic Acid Raf (0.7-2.0) mmol/L Calcium (8.4-10.2) mg/dL Magnesium (1.6-2.3) mg/dL Total Bilirubin (0.2-1.3) mg/dL AST (14-36) U/L ALT (9-52) U/L Alkaline Phosphatase (38-126) U/L Ammonia (<30) umol/L Troponin I <0.012 (0.000-0.034) ng/mL NT-Pro-B Natriuret Pep pg/mL Total Protein (6.3-8.2) g/dL Albumin (3.5-5.0) g/dL Urine Color Yellow Urine Appearance Clear (Clear) Urine pH 6.0 (5.0-8.0) Ur Specific [place] 1.014 (1.001-1.035) Urine Protein Trace H (Negative) Urine Glucose (UA) Negative (Negative) Urine Ketones Negative (Negative) Urine Blood Negative (Negative) Urine Nitrite Negative (Negative) Urine Bilirubin Negative (Negative) Urine Urobilinogen 3.0 (<2.0) mg/dL Ur Leukocyte Esterase Negative (Negative) - EKG Data EKG Comments: Ventricular rate 83 bpm, IA interval 162 ms, QRS duration 106 ms, QT/QTC 388/455 ms. Normal sinus rhythm incomplete right bundle branch block. No ST elevation or depression. EKG similar similar to that of 01/11/18. EKG personally interpreted. (Aleah Thomas) Disposition Is patient prescribed a controlled substance at d/c from ED?: No Time of Disposition: 20:49 <Aleah Thomas - Last Filed: 08/18/19 20:48> <Mp Perez - Last Filed: 08/18/19 21:19> Clinical Impression: Generalized weakness, Orthostatic hypotension Disposition: ADMITTED IP TO THIS HOSP Condition: Stable Referrals: Jamee Petit DO [Primary Care Provider] - 1-2 days
[2019-08-18 18:36] LABS: Albumin 2.6 g/dL (3.5-5.0); Calcium 8.2 mg/dL (8.4-10.2); Magnesium 2.4 mg/dL (1.6-2.3); Potassium 4.2 mmol/L (3.5-5.1); Total Bilirubin 1.3 mg/dL (0.2-1.3); Total Protein 5.5 g/dL (6.3-8.2)
[2019-08-18 18:38] LABS: Lactic Acid, Venous 1.6 mmol/L (0.7-2.0)
[2019-08-18 18:39] LABS: Basophils # (A) 0.1 k/uL (0-0.2); Basophils % (A) 1 %; Eosinophils # (A) 0.3 k/uL (0-0.7); Eosinophils % (A) 6 %; HCT 35.5 % (34.0-46.0); HGB 11.8 gm/dL (11.4-16.0); Lymphocytes # (A) 0.9 k/uL (1.0-4.8); Lymphocytes % (A) 17 %; MCH 29.6 pg (25.0-35.0); MCHC 33.2 g/dL (31.0-37.0); MCV 89.3 fL (80.0-100.0); Mean Platelet Volume 7.5; Monocytes # (A) 0.3 k/uL (0-1.0); Monocytes % (A) 6 %; Neutrophils # (A) 3.4 k/uL (1.3-7.7); Neutrophils % (A) 66 %; Platelet Count 203 k/uL (150-450); RBC 3.97 m/uL (3.80-5.40); RDW 15.6 % (11.5-15.5); WBC 5.1 k/uL (3.8-10.6)
[2019-08-18 20:02] LABS: Appearance,Urine Clear (Clear); Bilirubin,Urine Negative (Negative); Blood,Urine Negative (Negative); Color,Urine Yellow; Glucose,Urine (UA) Negative (Negative); Ketones,Urine Negative (Negative); Leukocyte Esterase,Urine Negative (Negative); Nitrite,Urine Negative (Negative); Protein,Urine Trace (Negative); Specific Gravity,Urine 1.014 (1.001-1.035)
[2019-08-18] MEDS ORDERED: NALOXONE 0.4 MG/ML 1 ML VIAL IV PRN (20:45)
--- NOTE | 2019-08-18 21:10 | XR ---
EXAMINATION TYPE: XR chest 2V DATE OF EXAM: 08/18/2019 COMPARISON: 01/17/2018 INDICATION: Weakness hypotensive TECHNIQUE: Frontal and lateral views of the chest are obtained. FINDINGS: The heart size is borderline in size. The pulmonary vasculature is upper limits of normal. No suspicious consolidations are evident. There is a small posterior pleural effusion.. IMPRESSION: 1. Clinical correlation recommended for volume overload or early congestive heart failure.
[2019-08-18] MEDS ORDERED: SODIUM CHLORIDE 0.9% 500 ML 500 ML IV ONE (21:25)
[2019-08-18] MEDS: SODIUM CHLORIDE 0.9% 1,000 ML IV SCH (22:28)
[2019-08-19 07:38] LABS: Glucose,Whole Blood 112 mg/dL (75-99)
[2019-08-19] MEDS: SODIUM CHLORIDE 0.9% 1,000 ML IV SCH ×2 (07:58→17:52)
[2019-08-19] MEDS ORDERED: hydrOXYzine HCL 25 MG TAB PO PRN (09:31)
[2019-08-19] MEDS ORDERED: oxyCODONE-APAP 5-325MG 1 EACH TAB PO PRN (09:31)
[2019-08-19 10:07] LABS: ALT 100 U/L (9-52); AST 146 U/L (14-36); African American GFR (CKD) >90 (>60 ml/min/1.73 sqM); Albumin 2.7 g/dL (3.5-5.0); Alkaline Phosphatase 1124 U/L (38-126); Anion Gap 10 mmol/L; Blood Urea Nitrogen 39 mg/dL (7-17); Calcium 7.9 mg/dL (8.4-10.2); Carbon Dioxide 20 mmol/L (22-30); Chloride 109 mmol/L (98-107); Glucose 189 mg/dL (74-99); Potassium 4.1 mmol/L (3.5-5.1); Sodium 139 mmol/L (137-145); Total Bilirubin 1.3 mg/dL (0.2-1.3); Total Protein 5.6 g/dL (6.3-8.2)
[2019-08-19] MEDS: FUROSEMIDE 20 MG TAB PO SCH (10:55)
[2019-08-19 12:18] LABS: Glucose,Whole Blood 179 mg/dL (75-99)
[2019-08-19] MEDS: INSULIN ASPART (NovoLOG) 100 UNIT/ML VIAL SQ SCH ×3 (12:46→22:15)
[2019-08-19 13:37] LABS: Amylase <30 U/L (30-110)
[2019-08-19 14:49] LABS: Basophils # (A) 0.1 k/uL (0-0.2); Basophils % (A) 2 %; Eosinophils # (A) 0.2 k/uL (0-0.7); Eosinophils % (A) 5 %; HCT 37.7 % (34.0-46.0); HGB 11.8 gm/dL (11.4-16.0); Hypochromasia Marked; Lymphocytes # (A) 1.5 k/uL (1.0-4.8); Lymphocytes % (A) 31 %; MCH 29.3 pg (25.0-35.0); MCHC 31.3 g/dL (31.0-37.0); MCV 93.6 fL (80.0-100.0); Mean Platelet Volume 7.4; Monocytes # (A) 0.3 k/uL (0-1.0); Monocytes % (A) 6 %; Neutrophils # (A) 2.4 k/uL (1.3-7.7); Neutrophils % (A) 51 %; Platelet Count 195 k/uL (150-450); RBC 4.03 m/uL (3.80-5.40); WBC 4.8 k/uL (3.8-10.6)
[2019-08-19] MEDS ORDERED: FUROSEMIDE 10 MG/ML 4 ML VIAL IV STA (15:10)
--- NOTE | 2019-08-19 15:15 | P.CRDCN ---
History of Present Illness History of present illness: This is a pleasant 73-year-old female past medical history significant for stage IV liver cancer currently receiving immunotherapy, diabetes mellitus, hypertension, dyslipidemia and former nicotine dependence. The patient denies prior history of coronary artery disease or heart failure. She does not follow with a fishery biologist for any reason. We've been asked to see her in consultation secondary to orthostatic hypotension. She states for the previous one month she has been experiencing increased lethargy, abdominal discomfort, increased abdominal bloating and girth and lower extremity edema. She saw her shingler for her immunotherapy infusion last week and described her symptoms to him. She is scheduled for a PET scan next week. However over the weekend she continued to feel generally unwell and started developing increased shortness of breath prompting her to come to the hospital for further evaluation. Up until one month ago she was essentially asymptomatic regarding her liver cancer diagnosis. Blood pressure on arrival was 113/83 with a heart rate of 82. Orthostatic vital signs were obtained in the supine position blood pressure was 100/56 and drops to 91/55 standing. She states she feels quite unsteady when she gets up and moves around. She denies symptoms of chest discomfort, palpitations, nausea, vomiting or diaphoresis. EKG reveals sinus mechanism with incomplete left bundle branch block. Chest x-ray reveals volume overload. Laboratory data reviewed, WBC 4.8, hemoglobin 11.8, platelets 195, sodium 139, potassium 4.1, creatinine 0.73, magnesium 2.4,, AST 146, ALT 100, alkaline phosphate 1124, albumin 2.7, proBNP 146, troponin negative 1. Current daily cardiac medications include zetia 10 mg daily, Lasix 60 mg daily, lisinopril 5 mg daily. At the time of my exam: CONSTITUTIONAL: Denies fever. Denies chills. EYES: Denies blurred vision. Denies vision changes. Denies eye pain. EARS, NOSE, MOUTH & THROAT: Denies headache. Denies sore throat. Denies ear pain. CARDIOVASCULAR: Denies chest pain. Complains of shortness of breath. Denies orthopnea. Denies PND. Denies palpitations. RESPIRATORY: Denies cough. GASTROINTESTINAL: Complains of abdominal pain. Denies diarrhea. Denies constipation. Denies nausea. Denies vomiting. MUSCULOSKELETAL: Denies myalgias. INTEGUMENTARY: Denies pruitis. Denies rash. NEUROLOGIC: Denies numbness. Denies tingling. Denies weakness. PSYCHIATRIC: Denies anxiety. Denies depression. ENDOCRINE: Denies fatigue. Denies weight change. Denies polydipsia. Denies polyurina. GENITOURINARY: Denies burning, hematuria or urgency with micturation. HEMATOLOGIC: Denies history of anemia. Denies bleeding. Blood pressure 96/53 heart rate 89 afebrile maintaining oxygen saturation on room air GENERAL: This is a 73-year-old female in no apparent distress at the time of my examination. HEENT: Head is atraumatic, normocephalic. Pupils are equal, round. Sclerae anicteric. Conjunctivae are clear. Mucous membranes of the mouth are moist. Neck is supple. There is no jugular venous distention. No carotid bruit is heard. LUNGS: Bibasilar rales, no wheezes or rhonchi. No chest wall tenderness is noted on palpation or with deep breathing. HEART: Regular rate and rhythm with systolic ejection murmur at the base, no rubs or gallops. S1 and S2 heard. ABDOMEN: Soft, nontender, distended but soft. Bowel sounds are heard. No organomegaly noted. EXTREMITIES: Bilateral lower extremity 1+ pitting edema. No calf tenderness noted. VASCULAR: Radial and dorsalis pedis pulses palpated, no evidence of clubbing. NEUROLOGIC: Patient is awake, alert and oriented x3. ASSESSMENT Volume overload secondary to liver cancer Hypertension Dyslipidemia Hypoalbuminemia Diabetes mellitus Former nicotine dependence PLAN Give dose of IV lasix. Obtain 2D echocardiogram and doppler study to assess cardiac structure and function. Hold lisinopril due to hypotension. Thank you kindly for this consultation. Nurse Practitioner note has been reviewed, I agree with a documented findings and plan of care. Patient was seen and examined. Past Medical History Past Medical History: Cancer, Heart Failure, Diabetes Mellitus, Hyperlipidemia, Hypertension Additional Past Medical History / Comment(s): RLS, Liver Cancer History of Any Multi-Drug Resistant Organisms: None Reported Past Surgical History: Back Surgery Additional Past Surgical History / Comment(s): COLONOSCOPY Past Anesthesia/Blood Transfusion Reactions: No Reported Reaction Past Psychological History: No Psychological Hx Reported Smoking Status: Former smoker Past Alcohol Use History: None Reported Additional Past Alcohol Use History / Comment(s): QUIT SMOKING 2011 Past Drug Use History: None Reported - Past Family History Father Family Medical History: Cancer Mother Family Medical History: Congestive Heart Failure (CHF), COPD Brother(s) Family Medical History: Cancer Medications and Allergies Home Medications Medication Instructions Recorded Confirmed Type Furosemide [Lasix] 60 mg PO DAILY 05/10/16 08/18/19 History L.acidoph,Paracasei, B.lactis 1 cap PO DAILY 05/10/16 08/18/19 History [Probiotic] Potassium Chloride ER [K-Dur 20] 20 meq PO BID 05/10/16 08/18/19 History rOPINIRole HCL [Requip] 5 mg PO HS 05/10/16 08/18/19 History Lisinopril [Zestril] 5 mg PO DAILY #30 tab 05/12/16 08/18/19 Rx Ezetimibe [Zetia] 10 mg PO DAILY 10/23/17 08/18/19 History oxyCODONE-APAP 5-325MG [Percocet 0.5 tab PO DAILY PRN 01/11/18 08/18/19 History 5-325 mg] hydrOXYzine HCL [Atarax] 25 mg PO TID PRN #15 tab 03/30/18 08/18/19 Rx Insulin Glargine [Lantus] 60 unit SQ DAILY 08/18/19 08/18/19 History Insulin Lispro [humaLOG Kwikpen] 12 unit SQ AC-BRKFST 08/18/19 08/18/19 History Insulin Lispro [humaLOG Kwikpen] 12 units SQ AC-LUNCH 08/18/19 08/18/19 History Insulin Lispro [humaLOG Kwikpen] 16 unit SQ AC-SUPPER 08/18/19 08/18/19 History Melatonin 5 mg PO HS 08/18/19 08/18/19 History Tri-Flex 1 tab PO DAILY 08/18/19 08/18/19 History Allergies Allergy/AdvReac Type Severity Reaction Status Date / Time ciprofloxacin Allergy Rash/Hives Verified 08/18/19 18:17 metronidazole [From Flagyl] Allergy Rash/Hives Verified 08/18/19 18:17 Penicillins AdvReac Rash/Hives Verified 08/18/19 18:17 Physical Exam Vitals: Vital Signs Temp Pulse Pulse Pulse Resp BP BP 08/19/19 07:00 97.6 F 89 12 96/53 08/19/19 05:29 97.9 F 91 08/19/19 00:44 81 18 98/52 08/18/19 22:32 84 18 100/52 08/18/19 20:28 88 18 103/59 08/18/19 20:05 82 85 16 91/55 08/18/19 19:09 89 16 113/83 08/18/19 17:31 97.9 F 82 18 113/83 BP Pulse Ox 08/19/19 07:00 94 L 08/19/19 05:29 97/59 92 L 08/19/19 00:44 95 08/18/19 22:32 94 L 08/18/19 20:28 94 L 08/18/19 20:05 100/56 08/18/19 19:09 93 L 08/18/19 17:31 94 L Intake and Output 08/19/19 08/19/19 08/19/19 06:59 14:59 22:59 Intake Total 500 Balance 500 Intake: Oral 500 Other: Voiding Method Toilet # Voids 1 Results 08/19/19 12:36 08/19/19 09:38 Cardiac Enzymes 08/18/19 08/18/19 08/19/19 Range/Units 17:37 17:37 09:38 AST 159 H 146 H (14-36) U/L Troponin I <0.012 (0.000-0.034) ng/mL Coagulation 08/18/19 08/19/19 Range/Units 17:37 12:36 PT 11.0 11.0 (9.0-12.0) sec APTT 31.0 H (22.0-30.0) sec CBC 08/18/19 08/19/19 Range/Units 17:37 12:36 WBC 5.1 4.8 (3.8-10.6) k/uL RBC 3.97 4.03 (3.80-5.40) m/uL Hgb 11.8 11.8 (11.4-16.0) gm/dL Hct 35.5 37.7 (34.0-46.0) % Plt Count 203 195 (150-450) k/uL Comprehensive Metabolic Panel 08/18/19 08/19/19 Range/Units 17:37 09:38 Sodium 137 139 (137-145) mmol/L Potassium 4.2 4.1 (3.5-5.1) mmol/L Chloride 105 109 H (98-107) mmol/L Carbon Dioxide 20 L 20 L (22-30) mmol/L BUN 62 H 39 H (7-17) mg/dL Creatinine 1.11 H 0.73 (0.52-1.04) mg/dL Glucose 111 H 189 H (74-99) mg/dL Calcium 8.2 L 7.9 L (8.4-10.2) mg/dL AST 159 H 146 H (14-36) U/L ALT 98 H 100 H (9-52) U/L Alkaline Phosphatase 888 H 1124 H (38-126) U/L Total Protein 5.5 L 5.6 L (6.3-8.2) g/dL Albumin 2.6 L 2.7 L (3.5-5.0) g/dL Current Medications Generic Name Dose Route Start Last Admin Trade Name Freq PRN Reason Stop Dose Admin Furosemide 60 mg 08/19/19 09:45 08/19/19 10:55 Lasix PO 60 mg DAILY EMA Administration Hydroxyzine HCl 25 mg 08/19/19 09:31 Atarax PO TID PRN Itching Sodium Chloride 1,000 mls @ 100 mls/hr 08/18/19 20:45 08/19/19 07:58 Saline 0.9% IV Not Given .Q10H [facility] Insulin Aspart 0 unit 08/19/19 12:30 08/19/19 12:46 Novolog SQ 2 unit ACHS EMA Administration Protocol Naloxone HCl 0.2 mg 08/18/19 20:45 Narcan IV Q2M PRN Opioid Reversal Oxycodone/Acetaminophen 0.5 each 08/19/19 09:31 Percocet 5-325 PO DAILY PRN Pain Ropinirole HCl 4 mg 08/19/19 21:00 Requip PO HS EMA Ropinirole HCl 1 mg 08/19/19 21:00 Requip PO HS EMA Intake and Output 08/19/19 08/19/19 08/19/19 06:59 14:59 22:59 Intake Total 500 Balance 500 Intake: Oral 500 Other: Voiding Method Toilet # Voids 1 08/19/19 12:36 08/19/19 09:38
[2019-08-19] MEDS ORDERED: IBUPROFEN 400 MG TAB PO PRN (16:09)
[2019-08-19] MEDS: BENZOCAINE/MENTHOL LOZENG 1 EACH LOZENGE MUCOUS MEM PRN (16:36)
--- NOTE | 2019-08-19 16:38 | P.CONS ---
History of Present Illness - Reason for Consult Consult date: 08/19/19 HCC Requesting physician: Denilson Baez - Chief Complaint BLE Weakness and swelling - History of Present Illness Shakira is refered by Dr Petit after recent low-level screening CT Scan of chest revealed diffuse hepatic lesions, in addition to RUL pleural-based lesion. The study was compared to CT of abdomen/Pelvis done in April 2016 and Hepatic lesions are mostly new. PET Scan performed 10/06/17 revealed moderate increased uptake in Hepatic lesions C/W malignant process, RUL lesion was non FDG avid. The patient stated having episodes of nausea/vomiting X 4-6 months, no changes in bowel habits or abdominal pain, but admitted having episodes of blood per rectum without Melena for last 4 months. The patient was evaluated for Hematochezia in April 2016 > then CT Scan (As above) revealed small liver lesios and Colonoscopy (Dr Kunz) was negative. She admitted having anorexia but denied weight loss. She denied prior malignancies. She is fully active and enjoying good performence status and quality of life. She smoked 1 PPD X 40 years, quit 4 years ago, denied ETOH use. No family history of malignancy. Feels Ok, no abdominal pain, tolerating Opdivo well. CT Scan: Stable liver lesions, ? progressive mesenteric carcinomatosis. 03/25/19: Feels Ok, has chronic mild abdominal pain (stable). Tolerating Opdivo well. 05/06/19: Feels Ok, worried about with advanced cancer. 06.19.19: Right Leg Swollen and Pain. Abdominal pain and palpable area. Rash and Dry Skin. 08/14/19: Feels poorly, very weak, having increasing RUQ pain. There was concern of progression on last CT scan, therefore PET scan is scheduled on 08.30.19. Opdivo has been placed on hold until PET scan. If PET shows progressive disease on opdivo plan is for [facility] versus comfort care. On admission her LFTs are increased. Review of Systems A 14 point review of systems assesed an completed and all negative except HPI Past Medical History Past Medical History: Cancer, Heart Failure, Diabetes Mellitus, Hyperlipidemia, Hypertension Additional Past Medical History / Comment(s): RLS, Liver Cancer History of Any Multi-Drug Resistant Organisms: None Reported Past Surgical History: Back Surgery Additional Past Surgical History / Comment(s): COLONOSCOPY Past Anesthesia/Blood Transfusion Reactions: No Reported Reaction Past Psychological History: No Psychological Hx Reported Smoking Status: Former smoker Past Alcohol Use History: None Reported Additional Past Alcohol Use History / Comment(s): QUIT SMOKING 2011 Past Drug Use History: None Reported - Past Family History Father Family Medical History: Cancer Mother Family Medical History: Congestive Heart Failure (CHF), COPD Brother(s) Family Medical History: Cancer Medications and Allergies Home Medications Medication Instructions Recorded Confirmed Type Furosemide [Lasix] 60 mg PO DAILY 05/10/16 08/18/19 History L.acidoph,Paracasei, B.lactis 1 cap PO DAILY 05/10/16 08/18/19 History [Probiotic] Potassium Chloride ER [K-Dur 20] 20 meq PO BID 05/10/16 08/18/19 History rOPINIRole HCL [Requip] 5 mg PO HS 05/10/16 08/18/19 History Lisinopril [Zestril] 5 mg PO DAILY #30 tab 05/12/16 08/18/19 Rx Ezetimibe [Zetia] 10 mg PO DAILY 10/23/17 08/18/19 History oxyCODONE-APAP 5-325MG [Percocet 0.5 tab PO DAILY PRN 01/11/18 08/18/19 History 5-325 mg] hydrOXYzine HCL [Atarax] 25 mg PO TID PRN #15 tab 03/30/18 08/18/19 Rx Insulin Glargine [Lantus] 60 unit SQ DAILY 08/18/19 08/18/19 History Insulin Lispro [humaLOG Kwikpen] 12 unit SQ AC-BRKFST 08/18/19 08/18/19 History Insulin Lispro [humaLOG Kwikpen] 12 units SQ AC-LUNCH 08/18/19 08/18/19 History Insulin Lispro [humaLOG Kwikpen] 16 unit SQ AC-SUPPER 08/18/19 08/18/19 History Melatonin 5 mg PO HS 08/18/19 08/18/19 History Tri-Flex 1 tab PO DAILY 08/18/19 08/18/19 History Allergies Allergy/AdvReac Type Severity Reaction Status Date / Time ciprofloxacin Allergy Rash/Hives Verified 08/18/19 18:17 metronidazole [From Flagyl] Allergy Rash/Hives Verified 08/18/19 18:17 Penicillins AdvReac Rash/Hives Verified 08/18/19 18:17 Physical Exam Vitals: Vital Signs Temp Pulse Pulse Pulse Resp BP BP 08/19/19 16:20 80 16 115/57 08/19/19 07:00 97.6 F 89 12 96/53 08/19/19 05:29 97.9 F 91 08/19/19 00:44 81 18 98/52 08/18/19 22:32 84 18 100/52 08/18/19 20:28 88 18 103/59 08/18/19 20:05 82 85 16 91/55 08/18/19 19:09 89 16 113/83 08/18/19 17:31 97.9 F 82 18 113/83 BP Pulse Ox 08/19/19 16:20 08/19/19 07:00 94 L 08/19/19 05:29 97/59 92 L 08/19/19 00:44 95 08/18/19 22:32 94 L 08/18/19 20:28 94 L 08/18/19 20:05 100/56 08/18/19 19:09 93 L 08/18/19 17:31 94 L Intake and Output 08/19/19 08/19/19 08/19/19 06:59 14:59 22:59 Intake Total 500 500 Balance 500 500 Intake: Oral 500 500 Other: Voiding Method Toilet # Voids 1 3 - Constitutional General appearance: average body habitus, cooperative, no acute distress - EENT Eyes: scleral icterus ENT: NA/AT, normal oropharynx - Neck Neck: normal ROM - Respiratory Respiratory: bilateral: CTA - Cardiovascular Rhythm: regular Heart sounds: normal: S1, S2 leg Peripheral Edema: bilateral: 2+ - Gastrointestinal General gastrointestinal: organomegaly, soft - Integumentary Integumentary: pale - Neurologic Neurologic: CNII-XII intact - Musculoskeletal Musculoskeletal: gait normal - Psychiatric Psychiatric: A&O x's 3, appropriate affect, intact judgment & insight Results CBC & Chem 7: 08/19/19 12:36 08/19/19 09:38 Labs: Abnormal Lab Results - Last 24 Hours (Table) 08/18/19 08/18/19 08/18/19 Range/Units 17:36 17:37 17:37 RDW 15.6 H (11.5-15.5) % Lymphocytes # 0.9 L (1.0-4.8) k/uL APTT (22.0-30.0) sec Chloride (98-107) mmol/L Carbon Dioxide 20 L (22-30) mmol/L BUN 62 H (7-17) mg/dL Creatinine 1.11 H (0.52-1.04) mg/dL Glucose 111 H (74-99) mg/dL POC Glucose (mg/dL) 112 H (75-99) mg/dL Calcium 8.2 L (8.4-10.2) mg/dL Magnesium 2.4 H (1.6-2.3) mg/dL AST 159 H (14-36) U/L ALT 98 H (9-52) U/L Alkaline Phosphatase 888 H (38-126) U/L Total Protein 5.5 L (6.3-8.2) g/dL Albumin 2.6 L (3.5-5.0) g/dL Amylase (30-110) U/L Urine Protein (Negative) 08/18/19 08/18/19 08/19/19 Range/Units 17:37 19:05 07:37 RDW (11.5-15.5) % Lymphocytes # (1.0-4.8) k/uL APTT 31.0 H (22.0-30.0) sec Chloride (98-107) mmol/L Carbon Dioxide (22-30) mmol/L BUN (7-17) mg/dL Creatinine (0.52-1.04) mg/dL Glucose (74-99) mg/dL POC Glucose (mg/dL) 112 H (75-99) mg/dL Calcium (8.4-10.2) mg/dL Magnesium (1.6-2.3) mg/dL AST (14-36) U/L ALT (9-52) U/L Alkaline Phosphatase (38-126) U/L Total Protein (6.3-8.2) g/dL Albumin (3.5-5.0) g/dL Amylase (30-110) U/L Urine Protein Trace H (Negative) 08/19/19 08/19/19 08/19/19 Range/Units 09:38 12:17 12:36 RDW (11.5-15.5) % Lymphocytes # (1.0-4.8) k/uL APTT (22.0-30.0) sec Chloride 109 H (98-107) mmol/L Carbon Dioxide 20 L (22-30) mmol/L BUN 39 H (7-17) mg/dL Creatinine (0.52-1.04) mg/dL Glucose 189 H (74-99) mg/dL POC Glucose (mg/dL) 179 H (75-99) mg/dL Calcium 7.9 L (8.4-10.2) mg/dL Magnesium (1.6-2.3) mg/dL AST 146 H (14-36) U/L ALT 100 H (9-52) U/L Alkaline Phosphatase 1124 H (38-126) U/L Total Protein 5.6 L (6.3-8.2) g/dL Albumin 2.7 L (3.5-5.0) g/dL Amylase <30 L (30-110) U/L Urine Protein (Negative) 08/19/19 Range/Units 12:36 RDW 16.0 H (11.5-15.5) % Lymphocytes # (1.0-4.8) k/uL APTT (22.0-30.0) sec Chloride (98-107) mmol/L Carbon Dioxide (22-30) mmol/L BUN (7-17) mg/dL Creatinine (0.52-1.04) mg/dL Glucose (74-99) mg/dL POC Glucose (mg/dL) (75-99) mg/dL Calcium (8.4-10.2) mg/dL Magnesium (1.6-2.3) mg/dL AST (14-36) U/L ALT (9-52) U/L Alkaline Phosphatase (38-126) U/L Total Protein (6.3-8.2) g/dL Albumin (3.5-5.0) g/dL Amylase (30-110) U/L Urine Protein (Negative) Assessment and Plan Plan: Hepatocellular cancer: - On Opdivo which is currently on hold - Concern for progression - Repeat CT scan, plan outpatient pet scan Increased Liver transiminitis: - Secondary to underlying malignancy versus immune therapy - Monitor daily BLE edema: - US neg in May - Recommend repeat - Await Echo Weakness and unsteady with walking: - PT/OT evaluation and treatment for chronic illness myopathy Consult furnace worker to provide services assist in house with meals/Groceries on hospice and patient with large physical and emotonal burden.
[2019-08-19 17:15] LABS: Glucose,Whole Blood 183 mg/dL (75-99)
--- NOTE | 2019-08-19 18:01 | ECHOF ---
Referral Reason:sob MEASUREMENTS -------- HEIGHT: 167.6 cm WEIGHT: 77.6 kg BP: 96/58 RVIDd: 2.8 cm (< 3.3) IVSd: 1.0 cm (0.6 - 1.1) LVIDd: 4.5 cm (3.9 - 5.3) LVPWd: 1.4 cm (0.6 - 1.1) IVSs: 1.5 cm LVIDs: 2.5 cm LVPWs: 1.6 cm LAESV Index (A-L): 23.10 ml/m Ao Diam: 2.8 cm (2.0 - 3.7) AV Cusp: 1.8 cm (1.5 - 2.6) LA Diam: 3.5 cm (2.7 - 3.8) MV EXCURSION: 11.844 mm (> 18.000) MV EF SLOPE: 42 mm/s (70 - 150) EPSS: 0.6 cm MV E Shalom: 0.86 m/s MV DecT: 221 ms MV A Shalom: 1.09 m/s MV E/A Ratio: 0.79 AV maxP.02 mmHg AV meanP.75 mmHg RAP: 5.00 mmHg RVSP: 23.43 mmHg FINDINGS -------- Sinus rhythm. This was a technically adequate study. The left ventricular size is normal. There is mild concentric left ventricular hypertrophy. Overa ll left ventricular systolic function is normal with, an EF between 60 - 65 %. The diastolic fillin g pattern is normal for the age of the patient 8.09. The right ventricle is normal in size. Normal LA size by volume 22+/-6 ml/m2. The right atrium is mildly enlarged. Interatrial and interventricular septum intact. There is mild aortic valve sclerosis. There is no evidence of aortic regurgitation. There is mild aortic stenosis present. Peak/mean gradient across the Aortic Valve is 19.02mmHg / 10.75mmHg. Moderate mitral annular calcification present. Mild mitral regurgitation is present. Mild tricuspid regurgitation present. There is no evidence of pulmonary hypertension. The right v entricular systolic pressure, as measured by Doppler, is 23.43mmHg. There is no pulmonic regurgitation present. The aortic root size is normal. The inferior vena cava is mildly dilated. There is no pericardial effusion. CONCLUSIONS -------- 1. Sinus rhythm. 2. This was a technically adequate study. 3. The left ventricular size is normal. 4. There is mild concentric left ventricular hypertrophy. 5. Overall left ventricular systolic function is normal with, an EF between 60 - 65 %. 6. The diastolic filling pattern is normal for the age of the patient 8.09 7. The right ventricle is normal in size. 8. Normal LA size by volume 22+/-6 ml/m2. 9. The right atrium is mildly enlarged. 10. Interatrial and interventricular septum intact. 11. There is mild aortic valve sclerosis. 12. There is no evidence of aortic regurgitation. 13. There is mild aortic stenosis present. 14. Peak/mean gradient across the Aortic Valve is 19.02mmHg / 10.75mmHg. 15. Moderate mitral annular calcification present. 16. Mild mitral regurgitation is present. 17. Mild tricuspid regurgitation present. 18. There is no evidence of pulmonary hypertension. 19. The right ventricular systolic pressure, as measured by Doppler, is 23.43mmHg. 20. There is no pulmonic regurgitation present. 21. The aortic root size is normal. 22. The inferior vena cava is mildly dilated. 23. There is no pericardial effusion. BRAND ADVISOR: Shabnam Quintanilla RDCS
[2019-08-19 19:13] LABS: African American GFR (CKD) >90 (>60 ml/min/1.73 sqM); Blood Urea Nitrogen 32 mg/dL (7-17)
--- NOTE | 2019-08-19 19:24 | US ---
EXAMINATION TYPE: US venous doppler duplex LE DATE OF EXAM: 08/19/2019 6:52 PM COMPARISON: US 2018 CLINICAL HISTORY: edema, malignancy. Edema, malignancy. No HX of DVT. Patient does not take blood thi nners. SIDE PERFORMED: Bilateral TECHNIQUE: The lower extremity deep venous system is examined utilizing real time linear array sonog ernestina with graded compression, doppler sonography and color-flow sonography. VESSELS IMAGED: External Iliac Vein (EIV) Common Femoral Vein Deep Femoral Vein Greater Saphenous Vein * Femoral Vein Popliteal Vein Small Saphenous Vein * Proximal Calf Veins (* superficial vessels) Right Leg: No evidence of DVT in veins imaged from prox calf veins to EIV. Left Leg: No evidence of DVT in veins imaged from prox calf veins to EIV. Duplicate mid femoral vein . IMPRESSION: No evidence of deep venous thrombosis in both legs.
[2019-08-19] MEDS: IOPAMIDOL CONTRAST (ORAL USE) VIAL PO PRN ×2 (19:47→20:46)
[2019-08-19] MEDS ORDERED: rOPINIRole HCL 4 MG TABLET PO SCH (21:00)
[2019-08-19 22:19] LABS: Glucose,Whole Blood 162 mg/dL (75-99)
--- NOTE | 2019-08-19 22:20 | CT ---
EXAMINATION TYPE: CT abdomen pelvis w con DATE OF EXAM: 08/19/2019 COMPARISON: 06/27/2019 HISTORY: Abnormal liver function tests CT DLP: 1173.1 mGycm Automated exposure control for dose reduction was used. TECHNIQUE: Helical acquisition of images was performed from the lung bases through the pelvis. CONTRAST: Performed with Oral Contrast and with IV Contrast, patient injected with 100 mL of Isovue 300. FINDINGS: There is mild atelectasis at the posterior lung bases. There is no pericardial effusion. There is no pleural effusion. There are numerous are able sized rounded predominantly high density masses throughout the liver. The se measure up to almost 6 cm. Spleen appears intact. The stomach is intact. There is no evidence of p ancreatic mass. There are numerous surgical clips at the tank hepatis. There is cholecystectomy. The re is extensive nodular densities involving the omental fat in the anterior abdomen. Masses measure u p to 4.3 cm. There is no adrenal mass. There is 2 cm cortical cyst upper pole left kidney. There is no hydronephro sis. There is no retroperitoneal adenopathy. Abdominal aorta is atheromatous. Bladder distends smooth ly. There is no inguinal hernia. Bladder distends smoothly. Uterus is anteverted. There is no free fl uid in the pelvis. There are some spondylotic changes in the lumbar spine. There are numerous diverti cula in the sigmoid colon. There is no sign of diverticulitis. There is no ascites. There is no evide nce of free air. The bony pelvis is intact. IMPRESSION: EXTENSIVE HEPATIC METASTATIC DISEASE. SUBSEGMENTAL ATELECTASIS AT THE LUNG BASES. LIVER NOT SIGNIFICA NTLY DIFFERENT THAN LAST EXAM. NUMEROUS PERITONEAL MASSES CONSISTENT WITH METASTATIC DISEASE UNCHANGE D. NO BOWEL OBSTRUCTION.
--- NOTE | 2019-08-19 22:58 | P.HPIM ---
History of Present Illness H&P Date: 08/19/19 Chief Complaint: weakness Mili Auguste is a 73 yo F with PMH of liver cancer being treated with immunotherapy, diastolic CHF, T2DM, HTN, HLD who presented to the ED with in creasing weakness and unsteadiness. She states that for the past few months she has been feeling more weak and this has been worse over the past week or so. She describes feeling lightheaded when standing and using the bathroom. She brought this up with her PCP and was noted to be hypotensive in clinic so advised to come in to the ED. She last received chemotherapy approx 1 week ago. She endorses RUQ pain, nausea and itching, denies fever, chills, palpitations. In the ED her initial BP was 110s/80s which dropped to 90/50 while standing. WBC 5, Cr 1.1, albumin 2.6. CXR clear. Review of Systems All systems: negative Constitutional: Reports malaise, Reports weakness, Denies chills, Denies fever Eyes: denies blurred vision, denies pain Ears, nose, mouth and throat: Denies headache, Denies sore throat Cardiovascular: Denies chest pain, Denies shortness of breath Respiratory: Denies cough Gastrointestinal: Reports abdominal pain, Reports nausea, Denies diarrhea, Denies vomiting Genitourinary: Denies dysuria, Denies hematuria Musculoskeletal: Denies myalgias Integumentary: Denies pruritus, Denies rash Neurological: Denies numbness, Denies weakness Psychiatric: Denies anxiety, Denies depression Endocrine: Denies fatigue, Denies weight change Past Medical History Past Medical History: Cancer, Heart Failure, Diabetes Mellitus, Hyperlipidemia, Hypertension Additional Past Medical History / Comment(s): RLS, Liver Cancer History of Any Multi-Drug Resistant Organisms: None Reported Past Surgical History: Back Surgery Additional Past Surgical History / Comment(s): COLONOSCOPY Past Anesthesia/Blood Transfusion Reactions: No Reported Reaction Past Psychological History: No Psychological Hx Reported Smoking Status: Former smoker Past Alcohol Use History: None Reported Additional Past Alcohol Use History / Comment(s): QUIT SMOKING 2011 Past Drug Use History: None Reported - Past Family History Father Family Medical History: Cancer Mother Family Medical History: Congestive Heart Failure (CHF), COPD Brother(s) Family Medical History: Cancer Medications and Allergies Home Medications Medication Instructions Recorded Confirmed Type Furosemide [Lasix] 60 mg PO DAILY 05/10/16 08/18/19 History L.acidoph,Paracasei, B.lactis 1 cap PO DAILY 05/10/16 08/18/19 History [Probiotic] Potassium Chloride ER [K-Dur 20] 20 meq PO BID 05/10/16 08/18/19 History rOPINIRole HCL [Requip] 5 mg PO HS 05/10/16 08/18/19 History Lisinopril [Zestril] 5 mg PO DAILY #30 tab 05/12/16 08/18/19 Rx Ezetimibe [Zetia] 10 mg PO DAILY 10/23/17 08/18/19 History oxyCODONE-APAP 5-325MG [Percocet 0.5 tab PO DAILY PRN 01/11/18 08/18/19 History 5-325 mg] hydrOXYzine HCL [Atarax] 25 mg PO TID PRN #15 tab 03/30/18 08/18/19 Rx Insulin Glargine [Lantus] 60 unit SQ DAILY 08/18/19 08/18/19 History Insulin Lispro [humaLOG Kwikpen] 12 unit SQ AC-BRKFST 08/18/19 08/18/19 History Insulin Lispro [humaLOG Kwikpen] 12 units SQ AC-LUNCH 08/18/19 08/18/19 History Insulin Lispro [humaLOG Kwikpen] 16 unit SQ AC-SUPPER 08/18/19 08/18/19 History Melatonin 5 mg PO HS 08/18/19 08/18/19 History Tri-Flex 1 tab PO DAILY 08/18/19 08/18/19 History Allergies Allergy/AdvReac Type Severity Reaction Status Date / Time ciprofloxacin Allergy Rash/Hives Verified 08/18/19 18:17 metronidazole [From Flagyl] Allergy Rash/Hives Verified 08/18/19 18:17 Penicillins AdvReac Rash/Hives Verified 08/18/19 18:17 Physical Exam Vitals: Vital Signs Temp Pulse Pulse Pulse Pulse Pulse Pulse 08/19/19 20:28 98.0 F 88 85 08/19/19 19:08 97.7 F 84 08/19/19 16:20 80 08/19/19 15:51 97.5 F L 80 80 08/19/19 07:00 97.6 F 89 08/19/19 05:29 97.9 F 91 08/19/19 00:44 81 Resp BP BP BP BP Pulse Ox 08/19/19 20:28 15 112/68 08/19/19 19:08 18 116/65 96 08/19/19 16:20 16 115/57 08/19/19 15:51 16 115/57 95 08/19/19 07:00 12 96/53 94 L 08/19/19 05:29 97/59 92 L 08/19/19 00:44 18 98/52 95 Intake and Output 08/19/19 08/19/19 08/19/19 06:59 14:59 22:59 Intake Total 500 1300 Balance 500 1300 Intake: Intake, IV Titration 800 Amount Sodium Chloride 0.9% 1, 800 000 ml @ 100 mls/hr IV . Q10H EMA Rx#:[id number] Oral 500 500 Other: Voiding Method Toilet Toilet # Voids 1 3 General: well nourished, well developed, NAD. Vitals reviewed Eyes: PERRL, EOMI, conjunctiva normal HENT: normocephalic, mucus membranes moist Neck: supple, no JVD Lungs: normal respiratory effort, clear throughout CV: Regular rate and rhythm, no murmur. Peripheral pulses 2+. 2+ edema BLE Abdomen: soft, nondistended, no organomegaly. TTP RUQ Lymph: no cervical or axillary LAD Skin: warm and dry. Neuro: A&Ox3, normal mood and affect Results CBC & Chem 7: 08/19/19 12:36 08/19/19 17:51 Labs: Abnormal Lab Results - Last 24 Hours (Table) 08/19/19 08/19/19 08/19/19 Range/Units 07:37 09:38 12:17 RDW (11.5-15.5) % Chloride 109 H (98-107) mmol/L Carbon Dioxide 20 L (22-30) mmol/L BUN 39 H (7-17) mg/dL Glucose 189 H (74-99) mg/dL POC Glucose (mg/dL) 112 H 179 H (75-99) mg/dL Calcium 7.9 L (8.4-10.2) mg/dL AST 146 H (14-36) U/L ALT 100 H (9-52) U/L Alkaline Phosphatase 1124 H (38-126) U/L Total Protein 5.6 L (6.3-8.2) g/dL Albumin 2.7 L (3.5-5.0) g/dL Amylase (30-110) U/L 08/19/19 08/19/19 08/19/19 Range/Units 12:36 12:36 17:04 RDW 16.0 H (11.5-15.5) % Chloride (98-107) mmol/L Carbon Dioxide (22-30) mmol/L BUN (7-17) mg/dL Glucose (74-99) mg/dL POC Glucose (mg/dL) 183 H (75-99) mg/dL Calcium (8.4-10.2) mg/dL AST (14-36) U/L ALT (9-52) U/L Alkaline Phosphatase (38-126) U/L Total Protein (6.3-8.2) g/dL Albumin (3.5-5.0) g/dL Amylase <30 L (30-110) U/L 08/19/19 08/19/19 Range/Units 17:51 22:10 RDW (11.5-15.5) % Chloride (98-107) mmol/L Carbon Dioxide (22-30) mmol/L BUN 32 H (7-17) mg/dL Glucose (74-99) mg/dL POC Glucose (mg/dL) 162 H (75-99) mg/dL Calcium (8.4-10.2) mg/dL AST (14-36) U/L ALT (9-52) U/L Alkaline Phosphatase (38-126) U/L Total Protein (6.3-8.2) g/dL Albumin (3.5-5.0) g/dL Amylase (30-110) U/L Thrombosis Risk Factor Assmnt - Choose All That Apply Each Risk Factor Represents 2 Points: Age 61-74 years Thrombosis Risk Factor Assessment Total Risk Factor Score: 2 Thrombosis Risk Factor Assessment Level: Low Risk Assessment and Plan (1) Type 2 diabetes mellitus Current Visit: Yes Status: Acute Code(s): E11.9 - TYPE 2 DIABETES MELLITUS WITHOUT COMPLICATIONS SNOMED Code(s): 80499188 (2) Chronic diastolic CHF (congestive heart failure) Current Visit: Yes Status: Acute Code(s): I50.32 - CHRONIC DIASTOLIC (CONGESTIVE) HEART FAILURE SNOMED Code(s): 811259257 (3) Generalized weakness Current Visit: Yes Status: Acute Code(s): R53.1 - SNOMED Code(s): 33215567 (4) Orthostatic hypotension Current Visit: Yes Status: Acute Code(s): I95.1 - ORTHOSTATIC HYPOTENSION SNOMED Code(s): 43425701 (5) Liver cancer Current Visit: No Status: Acute Code(s): C22.9 - MALIG NEOPLASM OF LIVER, NOT SPECIFIED PRIMARY OR SEC SNOMED Code(s): 49696442 (6) Hypoalbuminemia Current Visit: Yes Status: Acute Code(s): E88.09 - OTH DISORDERS OF PLASMA- PROTEIN METABOLISM, NEC SNOMED Code(s): 633522453 Plan: 1. Weakness, orthostatic hypotension. Likely secondary to cancer. Cardiology consult. Recommend compression hose 2. Liver cancer. Elevated LFTs. Oncology consult. Further eval with CT 3. Diastolic CHF. Continue lasix 4. T2DM. Accucheck/sliding scale DVT prophylaxis lovenox
[2019-08-20] MEDS: SODIUM CHLORIDE 0.9% 1,000 ML IV SCH (02:53)
[2019-08-20 07:16] LABS: Glucose,Whole Blood 115 mg/dL (75-99)
[2019-08-20 07:30] VITALS: TEMP 97.9
[2019-08-20] MEDS: INSULIN ASPART (NovoLOG) 100 UNIT/ML VIAL SQ SCH (07:50)
[2019-08-20] MEDS: FUROSEMIDE 20 MG TAB PO SCH (08:05)
[2019-08-20] MEDS: BENZOCAINE/MENTHOL LOZENG 1 EACH LOZENGE MUCOUS MEM PRN (08:06)
[2019-08-20] MEDS ORDERED: ENOXAPARIN 40 MG/0.4 ML SYRINGE SQ SCH (09:00)
[2019-08-20 09:35] LABS: Anisocytosis Slight; HCT 38.6 % (34.0-46.0); HGB 12.3 gm/dL (11.4-16.0); Hypochromasia Slight; MCH 29.1 pg (25.0-35.0); MCHC 31.9 g/dL (31.0-37.0); MCV 91.2 fL (80.0-100.0); Mean Platelet Volume 6.7; Platelet Count 327 k/uL (150-450); RBC 4.23 m/uL (3.80-5.40); RDW 16.1 % (11.5-15.5); WBC 6.8 k/uL (3.8-10.6)
[2019-08-20 09:41] LABS: ALT 91 U/L (9-52); AST 104 U/L (14-36); African American GFR (CKD) >90 (>60 ml/min/1.73 sqM); Albumin 2.9 g/dL (3.5-5.0); Alkaline Phosphatase 1322 U/L (38-126); Anion Gap 12 mmol/L; Blood Urea Nitrogen 25 mg/dL (7-17); Calcium 8.1 mg/dL (8.4-10.2); Carbon Dioxide 20 mmol/L (22-30); Chloride 109 mmol/L (98-107); Glucose 115 mg/dL (74-99); Potassium 3.7 mmol/L (3.5-5.1); Sodium 141 mmol/L (137-145); Total Bilirubin 1.3 mg/dL (0.2-1.3)
[2019-08-20 10:53] LABS: Myelocytes # (M) 0.14 k/uL (0); Nucleated Red Blood Cells 0 /100 WBC (0-0)
[2019-08-20 10:55] LABS: Lymphocytes # (M) 2.04 k/uL (1.0-4.8); Monocytes # (M) 0.54 k/uL (0-1.0); Neutrophils % (M) 60 %; Total Cells Counted 200
[2019-08-20 10:57] VITALS: BP 101/61; PULSE 94; RESP 16
[2019-08-20 10:57] LABS: Poikilocytosis (M) Present
[2019-08-20 10:58] LABS: Target Cells Present
--- NOTE | 2019-08-20 12:00 | P.DS ---
Providers Date of admission: 08/18/19 21:18 Expected date of discharge: 08/20/19 Attending physician: Amarjit Baez MD Consults: 08/18/19 21:20 Consult Physician Routine Consulting Provider: Zack Chavez Consult Reason/Comments: orthostatic hypotension Do you want consulting provider notified?: Yes 08/19/19 09:33 Consult Physician Routine Consulting Provider: Dariel Moran Consult Reason/Comments: liver cancer Do you want consulting provider notified?: Yes Primary care physician: [facility] Course: Final Diagnoses: (1) Type 2 diabetes mellitus Current Visit: Yes Status: Acute Code(s): E11.9 - TYPE 2 DIABETES MELLITUS WITHOUT COMPLICATIONS SNOMED Code(s): 22889248 (2) acute on Chronic diastolic CHF (congestive heart failure), secondary to volume overload from liver cancer Current Visit: Yes Status: Acute Code(s): I50.32 - CHRONIC DIASTOLIC (CONGESTIVE) HEART FAILURE SNOMED Code(s): 186622730 (3) Generalized weakness, secondary to cancer Current Visit: Yes Status: Acute Code(s): R53.1 - SNOMED Code(s): 23678625 (4) Orthostatic hypotension, secondary to cancer Current Visit: Yes Status: Acute Code(s): I95.1 - ORTHOSTATIC HYPOTENSION SNOMED Code(s): 27215523 (5) Liver cancer, elevated LFTs Current Visit: No Status: Acute Code(s): C22.9 - MALIG NEOPLASM OF LIVER, NOT SPECIFIED PRIMARY OR SEC SNOMED Code(s): 92216573 (6) Hypoalbuminemia Current Visit: Yes Status: Acute Code(s): E88.09 - OTH DISORDERS OF PLASMA-PROTEIN METABOLISM, NEC SNOMED Code(s): 847397622 (7) hypertension (8) former nicotine dependence Hospital course:Mili Auguste is a 73 yo F with PMH of liver cancer being treated with immunotherapy, diastolic CHF, T2DM, HTN, HLD who presented to the ED with increasing weakness and unsteadiness. She states that for the past few months she has been feeling more weak and this has been worse over the past week or so. She describes feeling lightheaded when standing and using the bathroom. She brought this up with her PCP and was noted to be hypotensive in clinic so advised to come in to the ED. She last received chemotherapy approx 1 week ago. She endorses RUQ pain, nausea and itching, denies fever, chills, palpitations. In the ED her initial BP was 110s/80s which dropped to 90/50 while standing. WBC 5, Cr 1.1, albumin 2.6. CXR clear. Evaluated/treated by oncology, cardiology. Elevated LFTs, alk phos up to 1322, T bili 1.3 .CT of abdomen and pelvis reporting extensive hepatic metastatic disease, subsegmental atelectasis at the lung bases. There are not significantly different than prior exam. Numerous peritoneal mass is consistent with metastatic disease unchanged. No bowel obstruction. Concern of progression, PET scan outpatient next week as per Dr. Wilkerson/oncology. Venous Doppler reported no DVT in bilateral legs. Echo reported normal LV function, EF 60-65%. JOSHUA inhibitor held. Significant clinical improvement. Cleared by all consults for discharge. Patient is being discharged home in a stable condition with guarded prognosis. General: well nourished, well developed, NAD. Vitals reviewed Lungs: normal respiratory effort, clear throughout CV: Regular rate and rhythm, no murmur. Peripheral pulses 2+. 2+ edema BLE Abdomen: soft, nondistended, no organomegaly. Neuro: A&Ox3, normal mood and affect The impression and plan of care has been dictated as directed. : I performed a history and examination of this patient, discussed the same with the dictator. I agree with the dictator's note ,documented as a scribe. Any additional findings or plans will be noted. Patient Condition at Discharge: Stable Plan - Discharge Summary New Discharge Prescriptions: New Benzocaine/Menthol Lozeng [Cepacol lozenge] 1 each MUCOUS MEM Q4HR PRN #30 lozenge PRN Reason: Sore Throat Continue rOPINIRole HCL [Requip] 5 mg PO HS Furosemide [Lasix] 60 mg PO DAILY Potassium Chloride ER [K-Dur 20] 20 meq PO BID L.acidoph,Paracasei, B.lactis [Probiotic] 1 cap PO DAILY Lisinopril [Zestril] 5 mg PO DAILY #30 tab Ezetimibe [Zetia] 10 mg PO DAILY oxyCODONE-APAP 5-325MG [Percocet 5-325 mg] 0.5 tab PO DAILY PRN PRN Reason: Pain hydrOXYzine HCL [Atarax] 25 mg PO TID PRN #15 tab PRN Reason: Itching Tri-Flex 1 tab PO DAILY Insulin Lispro [humaLOG Kwikpen] 12 unit SQ AC-BRKFST Insulin Lispro [humaLOG Kwikpen] 12 units SQ AC-LUNCH Insulin Lispro [humaLOG Kwikpen] 16 unit SQ AC-SUPPER Melatonin 5 mg PO HS Changed Insulin Glargine [Lantus] 40 unit SQ DAILY #0 Discharge Medication List Furosemide [Lasix] 60 mg PO DAILY 05/10/16 [History] L.acidoph,Paracasei, B.lactis [Probiotic] 1 cap PO DAILY 05/10/16 [History] Potassium Chloride ER [K-Dur 20] 20 meq PO BID 05/10/16 [History] rOPINIRole HCL [Requip] 5 mg PO HS 05/10/16 [History] Lisinopril [Zestril] 5 mg PO DAILY #30 tab 05/12/16 [Rx] Ezetimibe [Zetia] 10 mg PO DAILY 10/23/17 [History] oxyCODONE-APAP 5-325MG [Percocet 5-325 mg] 0.5 tab PO DAILY PRN 01/11/18 [History] hydrOXYzine HCL [Atarax] 25 mg PO TID PRN #15 tab 03/30/18 [Rx] Insulin Lispro [humaLOG Kwikpen] 12 unit SQ AC-BRKFST 08/18/19 [History] Insulin Lispro [humaLOG Kwikpen] 12 units SQ AC-LUNCH 08/18/19 [History] Insulin Lispro [humaLOG Kwikpen] 16 unit SQ AC-SUPPER 08/18/19 [History] Melatonin 5 mg PO HS 08/18/19 [History] Tri-Flex 1 tab PO DAILY 08/18/19 [History] Benzocaine/Menthol Lozeng [Cepacol lozenge] 1 each MUCOUS MEM Q4HR PRN #30 lozenge 08/20/19 [Rx] Insulin Glargine [Lantus] 40 unit SQ DAILY #0 08/20/19 [Rx] Follow up Appointment(s)/Referral(s): Jamee Petit DO [Primary Care Provider] - 09/08/19 2:15 pm Activity/Diet/Wound Care/Special Instructions: PET scan next week as per Dr. Wilkerson Discharge Disposition: HOME SELF-CARE
== END 2019-08-20 12:27 | disposition home or self-care (01) ==
LOC: EC 17:24 → 3NMEDONC 21:18 → 4SSUR 08-19 02:50
PROVIDERS: ADMIT Family Medicine; ATTEND Family Medicine
DX: I95.1 Orthostatic hypotension (principal); I11.0 Hypertensive heart disease with heart failure; I50.33 Acute on chronic diastolic (congestive) heart failure; E11.9 Type 2 diabetes mellitus without complications; C22.9 Malignant neoplasm of liver, not specified as primary or secondary; M63.8 Disorders of muscle in diseases classified elsewhere; I44.7 Left bundle-branch block, unspecified; K66.9 Disorder of peritoneum, unspecified; J98.11 Atelectasis; K62.5 Hemorrhage of anus and rectum; E78.5 Hyperlipidemia, unspecified; G25.81 Restless legs syndrome; Z87.891 Personal history of nicotine dependence; Z79.899 Other long term (current) drug therapy; Z79.4 Long term (current) use of insulin; Z79.891 Long term (current) use of opiate analgesic; Z88.1 Allergy status to other antibiotic agents; Z88.0 Allergy status to penicillin; Z98.890 Other specified postprocedural states; Z82.5 Family history of asthma and other chronic lower respiratory diseases; Z82.49 Family history of ischemic heart disease and other diseases of the circulatory system; Z80.9 Family history of malignant neoplasm, unspecified
CPT/HCPCS: 96372; 96374; 96361 ×2; 99285; 36415; 93005; 93306; 97162; 97165; 83880; 80053 ×3; 82140; 82150; 82565; 83605; 83690; 83735; 84520; 84484; 85025 ×3; 85610 ×2; 85730; 81003; 71046; 93970; 74177; G0378 ×3; J1940; J1650; Q9967